=== PATIENT | female | born 1990 | race Caucasian/White ===

== ENCOUNTER 2016-10-15 20:47 | Emergency (ER) | payer BC ==
--- NOTE | 2016-10-15 21:03 | ER Document Report ---
ED Medical Screen (RME) - General Chief Complaint: Mouth Problem Stated Complaint: MOUTH PROBLEM Time seen by provider: 21:01 Mode of Arrival: Ambulatory Information source: Patient Notes: 26 yo female presents to ed for jaw pain right up to ear and had. 26 weeks TRAVEL OUTSIDE OF THE [place] IN LAST 30 DAYS: No - HPI Onset: Other - month Onset/Duration: Intermittent Quality of pain: Throbbing Severity: Moderate Pain Level: 4 Associated Symptoms: Other - jaw pain Exacerbated by: Denies Relieved by: Denies Similar symptoms previously: Yes Recently seen / treated by doctor: Yes - Related Data Smoking: Non-smoker Frequency of alcohol use: None Drug Abuse: None Allergies/Adverse Reactions: Penicillins Allergy (Verified 11/19/13 21:44) mycins Allergy (Uncoded 11/19/13 21:44) Past Medical History - Past Medical History Cardiac Medical History: Reports: Hx Hypertension - Immunizations Hx Diphtheria, Pertussis, Tetanus Vaccination: Yes
--- NOTE | 2016-10-15 22:13 | ER Document Report ---
ED General - General Chief Complaint: Mouth Problem Stated Complaint: MOUTH PROBLEM Time seen by provider: 22:08 Mode of Arrival: Ambulatory Notes: This is a 26-year-old female with a history of TMJ that presents today with right jaw pain that has been going on for a month. She states that her whole right lateral side of her face from the right orbit down to the chin will half a throbbing ache. She states that she saw her dentist on September 29 to get cavities filled and was put on Cefdinir. She completed the course of antibiotics on October 09. She states that the antibiotic helped with the pain. She is also been taking Tylenol extra strength which also helps with the pain. Denies any nausea vomiting fever or chills dysphagia or odynophagia. Denies shortness of breath. She is 26 weeks and follows with [facility]. TRAVEL OUTSIDE OF THE [place] IN LAST 30 DAYS: No - Related Data Allergies/Adverse Reactions: Penicillins Allergy (Verified 10/15/16 21:00) mycins Allergy (Uncoded 10/15/16 21:00) Past Medical History - General Information source: Patient - Social History Smoking Status: Never Smoker Frequency of alcohol use: None Drug Abuse: None Family History: Reviewed & Not Pertinent Patient has suicidal ideation: No Patient has homicidal ideation: No - Past Medical History Cardiac Medical History: Reports: Hx Hypertension - Immunizations Hx Diphtheria, Pertussis, Tetanus Vaccination: Yes Review of Systems - Review of Systems Constitutional: denies: Chills, Fever EENT: See HPI Cardiovascular: denies: Chest pain Respiratory: denies: Cough, Hurts to breathe Gastrointestinal: denies: Nausea, Vomiting Genitourinary: No symptoms reported Female Genitourinary: Musculoskeletal: See HPI Skin: denies: Change in color Hematologic/Lymphatic: No symptoms reported Neurological/Psychological: No symptoms reported Physical Exam - Vital signs Vitals: Temp Pulse Resp BP Pulse Ox 97.5 F 97 18 148/85 H 100 10/15/16 21:00 10/15/16 21:00 10/15/16 21:00 10/15/16 21:00 10/15/16 21:00 - General General appearance: Appears well In distress: None - HEENT Head: Normocephalic, Atraumatic, Tenderness - Tenderness to palpation of the TMJ right side Eyes: Normal Pharynx: No: Erythema, Exudate Neck: Anterior cervical chain - Nontender no masses, Posterior cervical chain - Nontender no masses - Respiratory Respiratory status: No respiratory distress Breath sounds: Normal. No: Rales, Rhonchi, Stridor, Wheezing - Cardiovascular Rhythm: Regular Heart sounds: Normal auscultation - Abdominal Bowel sounds: Normal Tenderness: Nontender - Extremities General upper extremity: Normal inspection, Nontender, Normal strength, Normal temperature General lower extremity: Normal inspection, Nontender, Normal strength, Normal temperature - Neurological Cognition: Normal. No: Confused - Psychological Associated symptoms: Normal affect, Normal mood - Skin Skin Temperature: Warm Skin Moisture: Dry Skin Color: Normal Course - Re-evaluation Re-evalutation: 10/15/16 22:40 Patient stated that she was specifically allergic to both penicillin and clindamycin. She stated that she broke out in hives. She refuses clindamycin. She stated that she wanted to try Cefdinir again. I advised her to follow-up with [facility]. She stated that she would. - Vital Signs Vital signs: Temp Pulse Resp BP Pulse Ox 98.1 F 89 16 130/81 H 100 10/15/16 22:45 10/15/16 22:45 10/15/16 22:45 10/15/16 22:45 10/15/16 22:45 Discharge - Discharge Clinical Impression: Jaw pain Condition: Good Disposition: HOME, SELF-CARE Additional Instructions: Follow-up with primary care physician and dentist as soon as possible. Return to the emergency department if symptoms worsen such as loss of sensation to the face, loss of motor function, fever, chills, etc. Prescriptions: Cefdinir 300 mg PO BID #14 capsule Referrals: LIA DIA MD [Primary Care Provider] - Follow up as needed
[2016-10-15 23:28] VITALS: BP 130/81
== END 2016-10-15 22:50 | disposition home or self-care (01) ==
LOC: ER 20:47
DX: O26.892 Other specified pregnancy related conditions, second trimester (principal); R68.84 Jaw pain; O16.2 Unspecified maternal hypertension, second trimester; Z3A.26 26 weeks gestation of pregnancy; Z98.890 Other specified postprocedural states; Z88.0 Allergy status to penicillin; Z88.1 Allergy status to other antibiotic agents
CPT/HCPCS: 99282

== ENCOUNTER 2016-12-07 16:43 | Outpatient (CLI) | payer BC ==
[2016-12-07 17:44] LABS: ABSOLUTE BASOPHILS # (AUTO) 0.1 10^3/uL (0.0-0.2); ABSOLUTE EOSINOPHILS # (AUTO) 0.1 10^3/uL (0.0-0.6); ABSOLUTE LYMPHOCYTES (AUTO) 1.8 10^3/uL (0.5-4.7); ABSOLUTE MONOCYTES (AUTO) 0.8 10^3/uL (0.1-1.4); ABSOLUTE NEUT (AUTO) 7.4 10^3/uL (1.7-8.2); EOSINOPHILS % (AUTO) 0.6 % (0-6); HEMATOCRIT 36.6 % (36.0-47.0); HEMOGLOBIN 12.4 g/dL (12.0-15.5); HGB HCT DIFFERENCE 0.6; MEAN CORPUSCULAR HEMOGLOBIN 30.2 pg (27.0-33.4); MEAN CORPUSCULAR HGB CONC 33.9 g/dL (32.0-36.0); MEAN CORPUSCULAR VOLUME 89 fl (80-97); MONOCYTES % (AUTO) 7.7 % (3-13); RED BLOOD COUNT 4.11 10^6/uL (3.72-5.28); RED CELL DISTRIBUTION WIDTH 13.5 % (11.5-14.0); SEGMENTED NEUTROPHILS % (AUTO) 72.7 % (42-78); WHITE BLOOD COUNT 10.2 10^3/uL (4.0-10.5)
[2016-12-07 17:59] LABS: APPEARANCE,URINE CLOUDY; BILIRUBIN,URINE NEGATIVE (NEGATIVE); GLUCOSE, URINE NEGATIVE (NEGATIVE); KETONES,URINE NEGATIVE (NEGATIVE); LEUKOCYTE ESTERASE,URINE MODERATE (NEGATIVE); NITRITE,URINE NEGATIVE (NEGATIVE); PROTEIN,URINE NEGATIVE (NEGATIVE); URINE SPECIFIC GRAVITY 1.006; UROBILINOGEN,URINE NEGATIVE mg/dL (<2.0)
--- NOTE | 2016-12-07 18:00 | L&D Flow Sheet ---
LD Flowsheet Datetime Report Generated by CPN: 12/07/2016 18:00 Datetime: 12/07/2016 17:56 NBP Sys/Patricia/Mean (mmHg): 120 (QS system process) : 69 (QS system process) : 89 (QS system process) Pulse: 86 (QS system process) LaborFlag: Labor (QS system process) Datetime: 12/07/2016 17:41 NBP Sys/Patricia/Mean (mmHg): 117 (QS system process) : 68 (QS system process) : 86 (QS system process) Pulse: 96 (QS system process) LaborFlag: Labor (QS system process) Datetime: 12/07/2016 17:40 Comments: unaware of contractions, denies abdominal tightening or cramping (Aye Camp, RNC) I/O Interventions: Popsicle; Clear Liquids Given (Aye Camp, RNC) Datetime: 12/07/2016 17:30 Monitor Mode: External; Palpation (Aye Camp, RNC) Frequency (min): denies (Aye Camp, RNC) Resting Tone (Palpate): Relaxed (Aye Camp, RNC) Monitor Mode: External US; Auscultation (Aye Camp, RNC) FHR Baseline Rate : 140 (Aye Camp, RNC) FHR Baseline Changes: No Baseline Change (Aye Camp, RNC) Variability: Moderate 6-25 bpm (Aye Camp, RNC) Accelerations: 15X15 (Aye Camp, RNC) Decelerations: None (Aye Camp, RNC) IV/Blood Work: Labs Drawn (Aye Camp, RNC) Datetime: 12/07/2016 17:28 NBP Sys/Patricia/Mean (mmHg): 126 (QS system process) : 72 (QS system process) : 87 (QS system process) Pulse: 92 (QS system process) Respirations: 20 (Aye Camp, RNC) LaborFlag: Labor (QS system process) Datetime: 12/07/2016 17:26 NBP Sys/Patricia/Mean (mmHg): 136 (QS system process) : 98 (Annotations: b/p taken during blood draw) (Aye Camp, RNC) : 113 (QS system process) Pulse: 115 (QS system process) Respirations: 20 (Aye Camp, RNC) LaborFlag: Labor (QS system process) Datetime: 12/07/2016 17:21 Patient Position/Activity: HOB Lowered; Right Lateral (Aye Camp, RNC) Patient Care Comments: monitors adjusted (Aye Camp, RNC) Datetime: 12/07/2016 17:20 Frequency (min): denies contractions (Aye Camp, RNC) Resting Tone (Palpate): Relaxed (Aye Camp, RNC) Pain Scale: 0 (Aye Camp, RNC) Pain Presence: None/Denies (Aye Camp, RNC) Pain Type: N/A (Aye Camp, RNC) Pain Assessment Comments: denies pain on arrival (Aye Camp, RNC) Membrane Status: Intact (Aye Camp, RNC) Vaginal Bleeding: None (Aye Camp, RNC) Level of Consciousness: Fully Conscious (Aye Camp, RNC) DTR's/Clonus: DTRs 2+; No Clonus (Aye Camp, RNC) Headache: Denies (Aye Camp, RNC) Breath Sounds, Left: Clear and Equal (Aye Camp, RNC) Breath Sounds, Right: Clear and Equal (Aye Camp, RNC) Nausea/Vomiting: Denies (Aye Camp, RNC) RUQ Epigastric Pain: Denies (Aye Camp, RNC) LaborFlag: Labor (QS system process) Datetime: 12/07/2016 17:18 Instructional Method: Demo; Verbal; Patient Instructed; Family/Support Person Instructed; Verbalized Understanding (Aye Martinez RNC) Plan of Care: Plan of Care Discussed; Gestational Hypertension/Preeclampsia/Eclampsia (ROXANA Dominguez) Unit Routine: [place] to Room; Call Fisher; Monitoring (ROXANA Dominguez) Teaching Comments: POC for preeclampsia evaluation reviewed (Aye Martinez RNC) Datetime: 12/07/2016 16:48 Stage of : Labor (ROXANA Dominguez)
[2016-12-07 18:05] LABS: ALANINE AMINOTRANSFERASE 22 U/L (9-52); ALBUMIN 3.9 g/dL (3.5-5.0); ALKALINE PHOSPHATASE 80 U/L (38-126); ANION GAP 14 (5-19); ASPARTATE AMINO TRANSFERASE 20 U/L (14-36); BILIRUBIN,TOTAL 0.4 mg/dL (0.2-1.3); BLOOD UREA NITROGEN 8 mg/dL (7-20); CALCIUM 9.6 mg/dL (8.4-10.2); CARBON DIOXIDE 18 mmol/L (22-30); CHLORIDE 106 mmol/L (98-107); CREATININE RESULT 0.57 mg/dL (0.52-1.25); GLUCOSE 68 mg/dL (75-110); LDH 539 U/L (313-618); POTASSIUM 4.6 mmol/L (3.6-5.0); SODIUM 137.7 mmol/L (137-145); TOTAL PROTEIN 6.8 g/dL (6.3-8.2); URIC ACID 4.4 mg/dL (2.5-6.2)
[2016-12-07 18:14] LABS: URINE BARBITURATES SCREEN NEGATIVE; URINE METHADONE SCREEN NEGATIVE; URINE OPIATES LOW NEGATIVE; URINE PHENCYCLIDINE SCREEN NEGATIVE
[2016-12-09 13:38] LABS: CREATININE URINE 33.3 mg/dL (Not Estab.)
== END 2016-12-07 18:25 | disposition home or self-care (01) ==
LOC: LC 16:43
PROVIDERS: ATTEND Obstetrics & Gynecology
PROC: 4A1HXCZ Monitoring of Products of Conception, Cardiac Rate, External Approach (ICD-10-PCS; principal; 2016-12-07)
DX: Z36 Encounter for antenatal screening of mother (principal); Z13.6 Encounter for screening for cardiovascular disorders; Z3A.32 32 weeks gestation of pregnancy
CPT/HCPCS: 36415; 59025; 80053; 80307; 81001; 82570; 83615; 84156; 84550; 85025

== ENCOUNTER 2016-12-28 13:54 | Outpatient (CLI) | payer BC, MEDICAID ==
--- NOTE | 2016-12-28 14:12 | Non Stress Test Report ---
Non Stress Test Datetime Report Generated by CPN: 12/28/2016 14:11 DEMOGRAPHIC EGA NST: 33.2 INDICATION Indication for Study: Chronic Hypertension VITAL SIGNS Temperature - NST: 97.9 Pulse - NST: 92 RESP - NST: 20 NBPSYS NST: 126 NBPDIA NST: 72 MONITORING Monitor Explained: Monitor Explained; Test Explained; Patient Verbalized Understanding Time on Monitor: 12/07/2016 17:18 Time off Monitor: 12/07/2016 18:17 NST Duration: 59 NST INTERVENTIONS NST Interventions: PO Hydration; Reposition Patient Physician Notified NST: Dr Bales BABY A: [id number] BABY A Movement : Present Contraction Frequency : 6-8 FHR Baseline : 135 Accelerations : 15X15 Decelerations : None Variability : Moderate 6-25bpm NST Review: Meets Criteria for Reactive NST NST Review and Verified By : Wolfgang Negro RN NST Results: Reactive NST REPORT Report Trigger: Send Report
[2016-12-28 14:42] LABS: ABSOLUTE EOSINOPHILS # (AUTO) 0.1 10^3/uL (0.0-0.6); ABSOLUTE LYMPHOCYTES (AUTO) 1.6 10^3/uL (0.5-4.7); ABSOLUTE MONOCYTES (AUTO) 0.8 10^3/uL (0.1-1.4); ABSOLUTE NEUT (AUTO) 6.9 10^3/uL (1.7-8.2); BASOPHILS % (AUTO) 0.5 % (0-2); EOSINOPHILS % (AUTO) 0.9 % (0-6); HEMATOCRIT 36.1 % (36.0-47.0); HEMOGLOBIN 12.4 g/dL (12.0-15.5); HGB HCT DIFFERENCE 1.1; LYMPHOCYTES % (AUTO) 17.3 % (13-45); MEAN CORPUSCULAR HEMOGLOBIN 30.3 pg (27.0-33.4); MEAN CORPUSCULAR HGB CONC 34.2 g/dL (32.0-36.0); MEAN CORPUSCULAR VOLUME 89 fl (80-97); MONOCYTES % (AUTO) 8.2 % (3-13); RED BLOOD COUNT 4.07 10^6/uL (3.72-5.28); RED CELL DISTRIBUTION WIDTH 13.8 % (11.5-14.0); SEGMENTED NEUTROPHILS % (AUTO) 73.1 % (42-78); WHITE BLOOD COUNT 9.4 10^3/uL (4.0-10.5)
[2016-12-28 14:43] LABS: APPEARANCE,URINE CLOUDY; BILIRUBIN,URINE NEGATIVE (NEGATIVE); GLUCOSE, URINE 50 mg/dL (NEGATIVE); KETONES,URINE NEGATIVE (NEGATIVE); LEUKOCYTE ESTERASE,URINE LARGE (NEGATIVE); NITRITE,URINE NEGATIVE (NEGATIVE); PROTEIN,URINE NEGATIVE (NEGATIVE); URINE SPECIFIC GRAVITY 1.003; UROBILINOGEN,URINE NEGATIVE mg/dL (<2.0)
[2016-12-28 14:58] LABS: URINE BARBITURATES SCREEN NEGATIVE; URINE METHADONE SCREEN NEGATIVE; URINE OPIATES LOW NEGATIVE; URINE PHENCYCLIDINE SCREEN NEGATIVE
[2016-12-28 15:01] LABS: ALANINE AMINOTRANSFERASE 16 U/L (9-52); ALBUMIN 3.5 g/dL (3.5-5.0); ALKALINE PHOSPHATASE 99 U/L (38-126); ANION GAP 12 (5-19); ASPARTATE AMINO TRANSFERASE 14 U/L (14-36); BILIRUBIN,DIRECT 0.2 mg/dL (0.0-0.4); BILIRUBIN,TOTAL 0.4 mg/dL (0.2-1.3); BLOOD UREA NITROGEN 10 mg/dL (7-20); CALCIUM 10.3 mg/dL (8.4-10.2); CARBON DIOXIDE 20 mmol/L (22-30); CHLORIDE 108 mmol/L (98-107); CREATININE RESULT 0.54 mg/dL (0.52-1.25); GLUCOSE 73 mg/dL (75-110); LDH 364 U/L (313-618); POTASSIUM 4.5 mmol/L (3.6-5.0); SODIUM 139.7 mmol/L (137-145); TOTAL PROTEIN 6.5 g/dL (6.3-8.2); URIC ACID 4.9 mg/dL (2.5-6.2)
[2016-12-28 16:16] LABS: CHLAM PCR NOT DETECTED (NOT DETECT)
== END 2016-12-28 15:23 | disposition home or self-care (01) ==
LOC: LC 13:54
PROVIDERS: ATTEND Specialist
PROC: 4A1HXCZ Monitoring of Products of Conception, Cardiac Rate, External Approach (ICD-10-PCS; principal; 2016-12-28)
DX: O10.913 Unspecified pre-existing hypertension complicating pregnancy, third trimester (principal); Z3A.33 33 weeks gestation of pregnancy
CPT/HCPCS: 36415; 59025; 80053; 80307; 81005; 83615; 84550; 85025; 87077; 87081; 87491; 87591

== ENCOUNTER 2016-12-31 14:22 | Outpatient (CLI) | payer BC, MEDICAID ==
--- NOTE | 2016-12-31 14:59 | Non Stress Test Report ---
Non Stress Test Datetime Report Generated by CPN: 12/31/2016 14:59 DEMOGRAPHIC EGA NST: 36.2 INDICATION Indication for Study: Other Indication for Study (NST) Other: sent from office for Pre-E workup MONITORING Monitor Explained: Monitor Explained; Test Explained; Patient Verbalized Understanding Time on Monitor: 12/28/2016 14:24 Time off Monitor: 12/28/2016 15:17 NST Duration: 53 NST INTERVENTIONS NST Interventions: PO Hydration; Reposition Patient Physician Notified NST: H. Andrew CNM BABY A Movement : Present Contraction Frequency : none FHR Baseline : 150 Accelerations : 15X15 Decelerations : None Variability : Moderate 6-25bpm NST Review: Meets Criteria for Reactive NST NST Review and Verified By : RENATO Miranda Results: Reactive NST REPORT Report Trigger: Send Report
[2016-12-31 15:07] LABS: ABSOLUTE BASOPHILS # (AUTO) 0.1 10^3/uL (0.0-0.2); ABSOLUTE EOSINOPHILS # (AUTO) 0.1 10^3/uL (0.0-0.6); ABSOLUTE LYMPHOCYTES (AUTO) 1.5 10^3/uL (0.5-4.7); ABSOLUTE MONOCYTES (AUTO) 0.9 10^3/uL (0.1-1.4); ABSOLUTE NEUT (AUTO) 7.3 10^3/uL (1.7-8.2); BASOPHILS % (AUTO) 0.6 % (0-2); EOSINOPHILS % (AUTO) 0.5 % (0-6); HEMATOCRIT 36.5 % (36.0-47.0); HEMOGLOBIN 12.4 g/dL (12.0-15.5); HGB HCT DIFFERENCE 0.7; LYMPHOCYTES % (AUTO) 15.3 % (13-45); MEAN CORPUSCULAR HGB CONC 33.9 g/dL (32.0-36.0); MEAN CORPUSCULAR VOLUME 89 fl (80-97); MONOCYTES % (AUTO) 8.9 % (3-13); RED BLOOD COUNT 4.12 10^6/uL (3.72-5.28); RED CELL DISTRIBUTION WIDTH 13.4 % (11.5-14.0); SEGMENTED NEUTROPHILS % (AUTO) 74.7 % (42-78); WHITE BLOOD COUNT 9.7 10^3/uL (4.0-10.5)
[2016-12-31 15:23] LABS: ALANINE AMINOTRANSFERASE 17 U/L (9-52); ALBUMIN 3.8 g/dL (3.5-5.0); ALKALINE PHOSPHATASE 108 U/L (38-126); ANION GAP 10 (5-19); ASPARTATE AMINO TRANSFERASE 11 U/L (14-36); BILIRUBIN,TOTAL 0.5 mg/dL (0.2-1.3); BLOOD UREA NITROGEN 9 mg/dL (7-20); CALCIUM 10.1 mg/dL (8.4-10.2); CARBON DIOXIDE 22 mmol/L (22-30); CHLORIDE 106 mmol/L (98-107); CREATININE RESULT 0.52 mg/dL (0.52-1.25); GLUCOSE 62 mg/dL (75-110); LDH 351 U/L (313-618); POTASSIUM 4.4 mmol/L (3.6-5.0); SODIUM 137.9 mmol/L (137-145); TOTAL PROTEIN 6.4 g/dL (6.3-8.2); URIC ACID 4.3 mg/dL (2.5-6.2)
[2016-12-31 15:39] LABS: APPEARANCE,URINE CLOUDY; BILIRUBIN,URINE NEGATIVE (NEGATIVE); GLUCOSE, URINE 50 mg/dL (NEGATIVE); KETONES,URINE NEGATIVE (NEGATIVE); LEUKOCYTE ESTERASE,URINE TRACE (NEGATIVE); NITRITE,URINE NEGATIVE (NEGATIVE); PROTEIN,URINE NEGATIVE (NEGATIVE); URINE SPECIFIC GRAVITY 1.006; UROBILINOGEN,URINE NEGATIVE mg/dL (<2.0)
[2016-12-31 15:53] LABS: URINE BARBITURATES SCREEN NEGATIVE; URINE METHADONE SCREEN NEGATIVE; URINE OPIATES LOW NEGATIVE; URINE PHENCYCLIDINE SCREEN NEGATIVE
--- NOTE | 2016-12-31 16:19 | Non Stress Test Report ---
Non Stress Test Datetime Report Generated by CPN: 12/31/2016 16:18 DEMOGRAPHIC EGA NST: 36.4 INDICATION Indication for Study: Other Indication for Study (NST) Other: pre-e workup MONITORING Monitor Explained: Monitor Explained; Test Explained; Patient Verbalized Understanding Time on Monitor: 12/31/2016 15:04 Time off Monitor: 12/31/2016 16:01 NST Duration: 57 NST INTERVENTIONS NST Interventions: PO Hydration; Reposition Patient Physician Notified NST: Dr Neilsen Physician Notified NST: Dr Neilsen BABY A Movement : Present Contraction Frequency : irreg FHR Baseline : 145 Accelerations : 15X15 Decelerations : None Variability : Moderate 6-25bpm NST Review: Meets Criteria for Reactive NST NST Review and Verified By : Aye Camp RNC NST Results: Reactive NST REPORT Report Trigger: Send Report
== END 2016-12-31 16:16 | disposition home or self-care (01) ==
LOC: LC 14:22
PROVIDERS: ATTEND Specialist
PROC: 4A1HXCZ Monitoring of Products of Conception, Cardiac Rate, External Approach (ICD-10-PCS; principal; 2016-12-31)
DX: O10.913 Unspecified pre-existing hypertension complicating pregnancy, third trimester (principal); Z3A.36 36 weeks gestation of pregnancy
CPT/HCPCS: 36415; 59025; 80053; 80307; 81001; 83615; 84550; 85025; 86592; 86850; 86900; 86901

== ENCOUNTER 2017-01-04 10:21 | Inpatient (IN) | payer BC, MEDICAID ==
[2017-01-04] MEDS ORDERED: DINOPROSTONE 10 MG VAGINAL INSERT.SR PV PRN (10:34)
[2017-01-04] MEDS ORDERED: RINGERS SOLUTION,LACTATED 300 ML IV ONE (10:34)
[2017-01-04] MEDS ORDERED: RINGERS SOLUTION,LACTATED 1,000 ML IV PRN (10:34)
[2017-01-04] MEDS ORDERED: NIFEDIPINE 30 MG TAB.ER.24 PO ONE (11:00)
[2017-01-04 11:16] LABS: APPEARANCE,URINE CLOUDY; BILIRUBIN,URINE NEGATIVE (NEGATIVE); GLUCOSE, URINE NEGATIVE (NEGATIVE); KETONES,URINE NEGATIVE (NEGATIVE); LEUKOCYTE ESTERASE,URINE SMALL (NEGATIVE); NITRITE,URINE NEGATIVE (NEGATIVE); PROTEIN,URINE 30 mg/dL (NEGATIVE); URINE SPECIFIC GRAVITY 1.023; UROBILINOGEN,URINE NEGATIVE mg/dL (<2.0)
[2017-01-04 11:17] LABS: ABSOLUTE EOSINOPHILS # (AUTO) 0.1 10^3/uL (0.0-0.6); ABSOLUTE LYMPHOCYTES (AUTO) 1.7 10^3/uL (0.5-4.7); ABSOLUTE MONOCYTES (AUTO) 0.5 10^3/uL (0.1-1.4); ABSOLUTE NEUT (AUTO) 6.7 10^3/uL (1.7-8.2); BASOPHILS % (AUTO) 0.5 % (0-2); EOSINOPHILS % (AUTO) 0.6 % (0-6); HEMATOCRIT 35.6 % (36.0-47.0); HEMOGLOBIN 12.1 g/dL (12.0-15.5); HGB HCT DIFFERENCE 0.7; LYMPHOCYTES % (AUTO) 18.6 % (13-45); MEAN CORPUSCULAR HEMOGLOBIN 30.3 pg (27.0-33.4); MEAN CORPUSCULAR VOLUME 89 fl (80-97); MONOCYTES % (AUTO) 5.1 % (3-13); SEGMENTED NEUTROPHILS % (AUTO) 75.2 % (42-78); WHITE BLOOD COUNT 8.9 10^3/uL (4.0-10.5)
[2017-01-04] MEDS ORDERED: DINOPROSTONE 10 MG VAGINAL INSERT.SR ONE (11:27)
[2017-01-04 11:32] LABS: ALANINE AMINOTRANSFERASE 17 U/L (9-52); ALBUMIN 3.6 g/dL (3.5-5.0); ALKALINE PHOSPHATASE 108 U/L (38-126); ANION GAP 11 (5-19); ASPARTATE AMINO TRANSFERASE 17 U/L (14-36); BILIRUBIN,TOTAL 0.6 mg/dL (0.2-1.3); BLOOD UREA NITROGEN 10 mg/dL (7-20); CALCIUM 10.2 mg/dL (8.4-10.2); CARBON DIOXIDE 22 mmol/L (22-30); CHLORIDE 106 mmol/L (98-107); CREATININE RESULT 0.54 mg/dL (0.52-1.25); GLUCOSE 99 mg/dL (75-110); LDH 356 U/L (313-618); SODIUM 139.3 mmol/L (137-145); TOTAL PROTEIN 6.3 g/dL (6.3-8.2); URIC ACID 4.8 mg/dL (2.5-6.2)
--- NOTE | 2017-01-04 11:46 | L&D Progress Notes ---
PROGRESS NOTES Datetime Report Generated by CPN: 01/04/2017 11:46 PROGRESS NOTE Comment: Cervidil placed, VE 1/50/-2/soft/posterior, Pitocin after 12 hours SIGNATURE SIGNATURE: ,[id number];,[id number] SIGNATURE: [id number] SIGNATURE: [id number] SIGNATURE: ,[id number] Assignment: Ellyn Cardona MD Signature: with User ID: [email or web address] : with User ID: [email or web address]
[2017-01-04 13:31] LABS: URINE BARBITURATES SCREEN NEGATIVE; URINE METHADONE SCREEN NEGATIVE; URINE OPIATES LOW NEGATIVE; URINE PHENCYCLIDINE SCREEN NEGATIVE
--- NOTE | 2017-01-04 20:02 | L&D Flow Sheet ---
LD Flowsheet Datetime Report Generated by CPN: 01/04/2017 20:00 Datetime: 01/04/2017 19:36 NBP Sys/Patricia/Mean (mmHg): 139 (QS system process) : 89 (QS system process) : 109 (QS system process) Pulse: 93 (QS system process) LaborFlag: Labor (QS system process) Datetime: 01/04/2017 19:30 Monitor Mode: External; Palpation (Haydee Field, RN) Frequency (min): x1 (Haydee Field, RN) Duration (sec): 80 (Haydee Field, RN) Resting Tone (Palpate): Relaxed (Haydee Field, RN) Monitor Mode: External US (Haydee Field, RN) FHR Baseline Rate : 145 (Haydee Field, RN) Variability: Moderate 6-25 bpm (Haydee Field, RN) Accelerations: 15X15 (Haydee Field, RN) Decelerations: None (Haydee Field, RN) Datetime: 01/04/2017 19:26 Level of Consciousness: Fully Conscious (Haydee Field, RN) DTR's/Clonus: DTRs 1+; No Clonus (Haydee Field, RN) Headache: Denies (Haydee Field, RN) Breath Sounds, Left: Clear and Equal (Haydee Field, RN) Breath Sounds, Right: Clear and Equal (Haydee Field, RN) Nausea/Vomiting: Denies (Haydee Field, RN) RUQ Epigastric Pain: Denies (Haydee Field, RN) Datetime: 01/04/2017 19:07 NBP Sys/Patricia/Mean (mmHg): 135 (QS system process) : 99 (QS system process) : 113 (QS system process) Pulse: 108 (QS system process) LaborFlag: Labor (QS system process) Datetime: 01/04/2017 19:05 Monitor Mode: External (Shikha Bellavance, RNC) Monitor Interventions for UA: [place] Adjusted (Shikha Bellavance, RNC) Frequency (min): 0 (Shikha Bellavance, RNC) Resting Tone (Palpate): Relaxed (Shikha Bellavance, RNC) Monitor Mode: External US (Shikha Bellavance, RNC) Monitor Interventions for FHR: Ultrasound Adjusted (Shikha Bellavance, RNC) FHR Baseline Rate : 150 (Shikha Bellavance, RNC) Variability: Moderate 6-25 bpm (Shikha Bellavance, RNC) Accelerations: None (Shikha Bellavance, RNC) Decelerations: None (Shikha Bellavance, RNC) IV/Blood Work: IV Infusing per Order (Shikha Bellavance, RNC) Patient Position/Activity: High Fowlers (Shikha Bellavance, RNC) Comfort Measures: Breathing/Relaxation (Shikha Bellavance, RNC) Datetime: 01/04/2017 18:58 I/O Interventions: Up to BR (Shikha Bellavance, RNC) Datetime: 01/04/2017 18:36 NBP Sys/Patricia/Mean (mmHg): 135 (QS system process) : 87 (QS system process) : 106 (QS system process) Pulse: 90 (QS system process) Respirations: 18 (Shikha Bellavance, RNC) Monitor Mode: External (Shikha Bellavance, RNC) Monitor Interventions for UA: [place] Adjusted (Shikha Bellavance, RNC) Frequency (min): 0 (Shikha Bellavance, RNC) Resting Tone (Palpate): Relaxed (Shikha Bellavance, RNC) Monitor Mode: External US (Shikha Bellavance, RNC) Monitor Interventions for FHR: Ultrasound Adjusted (Shikha Bellavance, RNC) FHR Baseline Rate : 150 (Shikha Bellavance, RNC) Variability: Moderate 6-25 bpm (Shikha Bellavance, RNC) Accelerations: None (Shikha Bellavance, RNC) Decelerations: None (Shikha Bellavance, RNC) IV/Blood Work: IV Infusing per Order (Shikha Bellavance, RNC) Patient Position/Activity: High Fowlers (Shikha Bellavance, RNC) Comfort Measures: Breathing/Relaxation (Shikha Bellavance, RNC) LaborFlag: Labor (QS system process) Datetime: 01/04/2017 18:06 NBP Sys/Patricia/Mean (mmHg): 131 (QS system process) : 80 (QS system process) : 101 (QS system process) Pulse: 100 (QS system process) Respirations: 18 (Shikha Bellavance, RNC) Monitor Mode: External (Shikha Bellavance, RNC) Monitor Interventions for UA: [place] Adjusted (Shikha Bellavance, RNC) Frequency (min): 0 (Shikha Bellavance, RNC) Resting Tone (Palpate): Relaxed (Shikha Bellavance, RNC) Monitor Mode: External US (Shikha Bellavance, RNC) Monitor Interventions for FHR: Ultrasound Adjusted (Shikha Bellavance, RNC) FHR Baseline Rate : 150 (Shikha Bellavance, RNC) Variability: Moderate 6-25 bpm (Shikha Bellavance, RNC) Accelerations: None (Shikha Bellavance, RNC) Decelerations: None (Shikha Bellavance, RNC) IV/Blood Work: IV Infusing per Order (Shikha Bellavance, RNC) Patient Position/Activity: High Fowlers (Shikha Bellavance, RNC) Comfort Measures: Breathing/Relaxation (Shikha Bellavance, RNC) LaborFlag: Labor (QS system process) Datetime: 01/04/2017 17:36 NBP Sys/Patricia/Mean (mmHg): 147 (QS system process) : 79 (QS system process) : 105 (QS system process) Pulse: 96 (QS system process) Respirations: 16 (Shikha Bellavance, RNC) Monitor Mode: External (Shikha Bellavance, RNC) Monitor Interventions for UA: [place] Adjusted (Shikha Bellavance, RNC) Frequency (min): 0 (Shikha Bellavance, RNC) Resting Tone (Palpate): Relaxed (Shikha Bellavance, RNC) Monitor Mode: External US (Shikha Bellavance, RNC) Monitor Interventions for FHR: Ultrasound Adjusted (Shikha Bellavance, RNC) FHR Baseline Rate : 150 (Shikha Bellavance, RNC) Variability: Moderate 6-25 bpm (Shikha Bellavance, RNC) Accelerations: None (Shikha Bellavance, RNC) Decelerations: None (Shikha Bellavance, RNC) IV/Blood Work: IV Infusing per Order (Shikha Bellavance, RNC) Patient Position/Activity: High Fowlers (Shikha Bellavance, RNC) Comfort Measures: Breathing/Relaxation (Shikha Bellavance, RNC) LaborFlag: Labor (QS system process) Datetime: 01/04/2017 17:08 NBP Sys/Patricia/Mean (mmHg): 140 (QS system process) : 71 (QS system process) : 97 (QS system process) Pulse: 96 (QS system process) Respirations: 16 (Shikha Bellavance, RNC) Monitor Mode: External (Shikha Bellavance, RNC) Monitor Interventions for UA: [place] Adjusted (Shikha Bellavance, RNC) Frequency (min): 0 (Shikha Bellavance, RNC) Resting Tone (Palpate): Relaxed (Shikha Bellavance, RNC) Monitor Mode: External US (Shikha Bellavance, RNC) Monitor Interventions for FHR: Ultrasound Adjusted (Shikha Bellavance, RNC) FHR Baseline Rate : 150 (Shikha Bellavance, RNC) Variability: Moderate 6-25 bpm (Shikha Bellavance, RNC) Accelerations: None (Shikha Bellavance, RNC) Decelerations: None (Shikha Bellavance, RNC) IV/Blood Work: IV Infusing per Order (Shikha Bellavance, RNC) Patient Position/Activity: High Fowlers (Shikha Bellavance, RNC) Comfort Measures: Breathing/Relaxation (Shikha Bellavance, RNC) LaborFlag: Labor (QS system process) Datetime: 01/04/2017 16:36 NBP Sys/Patricia/Mean (mmHg): 131 (QS system process) : 74 (QS system process) : 97 (QS system process) Pulse: 106 (QS system process) Respirations: 16 (Shikha Bellavance, RNC) Monitor Mode: External (Shikha Bellavance, RNC) Monitor Interventions for UA: [place] Adjusted (Shikha Bellavance, RNC) Frequency (min): 0 (Shikha Bellavance, RNC) Resting Tone (Palpate): Relaxed (Shikha Bellavance, RNC) Monitor Mode: External US (Shikha Bellavance, RNC) Monitor Interventions for FHR: Ultrasound Adjusted (Shikha Bellavance, RNC) FHR Baseline Rate : 150 (Shikha Bellavance, RNC) Variability: Moderate 6-25 bpm (Shikha Bellavance, RNC) Accelerations: None (Shikha Bellavance, RNC) Decelerations: None (Shikha Bellavance, RNC) IV/Blood Work: IV Infusing per Order (Shikha Bellavance, RNC) Patient Position/Activity: High Fowlers (Shikha Bellavance, RNC) Comfort Measures: Breathing/Relaxation (Shikha Bellavance, RNC) LaborFlag: Labor (QS system process) Datetime: 01/04/2017 16:06 NBP Sys/Patricia/Mean (mmHg): 132 (QS system process) : 86 (QS system process) : 104 (QS system process) Pulse: 114 (QS system process) Respirations: 18 (Shikha Bellavance, RNC) Monitor Mode: External (Shikha Bellavance, RNC) Monitor Interventions for UA: [place] Adjusted (Shikha Bellavance, RNC) Frequency (min): 0 (Shikha Bellavance, RNC) Resting Tone (Palpate): Relaxed (Shikha Bellavance, RNC) Monitor Mode: External US (Shikha Bellavance, RNC) Monitor Interventions for FHR: Ultrasound Adjusted (Shikha Bellavance, RNC) FHR Baseline Rate : 150 (Shikha Bellavance, RNC) Variability: Moderate 6-25 bpm (Shikha Bellavance, RNC) Accelerations: None (Shikha Bellavance, RNC) Decelerations: None (Shikha Bellavance, RNC) IV/Blood Work: IV Infusing per Order (Shikha Bellavance, RNC) Patient Position/Activity: High Fowlers (Shikha Bellavance, RNC) Comfort Measures: Breathing/Relaxation (Shikha Bellavance, RNC) LaborFlag: Labor (QS system process) Datetime: 01/04/2017 15:36 NBP Sys/Patricia/Mean (mmHg): 133 (QS system process) : 75 (QS system process) : 98 (QS system process) Pulse: 97 (QS system process) Respirations: 16 (Shikha Bellavance, RNC) Monitor Mode: External (Shikha Bellavance, RNC) Monitor Interventions for UA: [place] Adjusted (Shikha Bellavance, RNC) Frequency (min): 0 (Shikha Bellavance, RNC) Resting Tone (Palpate): Relaxed (Shikha Bellavance, RNC) Monitor Mode: External US (Shikha Bellavance, RNC) Monitor Interventions for FHR: Ultrasound Adjusted (Shikha Bellavance, RNC) FHR Baseline Rate : 150 (Shikha Bellavance, RNC) Variability: Moderate 6-25 bpm (Shikha Bellavance, RNC) Accelerations: None (Hsikha Bellavance, RNC) Decelerations: None (Shikha Bellavance, RNC) IV/Blood Work: IV Infusing per Order (Shikha Bellavance, RNC) Patient Position/Activity: High Fowlers (Shikha Bellavance, RNC) Comfort Measures: Breathing/Relaxation (Shikha Bellavance, RNC) LaborFlag: Labor (QS system process) Datetime: 01/04/2017 15:26 I/O Interventions: Up to BR (Shikha Bellavance, RNC) Datetime: 01/04/2017 15:07 NBP Sys/Patricia/Mean (mmHg): 133 (QS system process) : 81 (QS system process) : 101 (QS system process) Pulse: 104 (QS system process) Respirations: 18 (Shikha Bellavance, RNC) Monitor Mode: External (Shikha Bellavance, RNC) Monitor Interventions for UA: [place] Adjusted (Shikha Bellavance, RNC) Frequency (min): 0 (Shikha Bellavance, RNC) Resting Tone (Palpate): Relaxed (Shikha Bellavance, RNC) Monitor Mode: External US (Shikha Bellavance, RNC) Monitor Interventions for FHR: Ultrasound Adjusted (Shikha Bellavance, RNC) FHR Baseline Rate : 150 (Shikha Bellavance, RNC) Variability: Moderate 6-25 bpm (Shikha Bellavance, RNC) Accelerations: None (Shikha Bellavance, RNC) Decelerations: None (Shikha Bellavance, RNC) IV/Blood Work: IV Infusing per Order (Shikha Bellavance, RNC) Patient Position/Activity: High Fowlers (Shikha Bellavance, RNC) Comfort Measures: Breathing/Relaxation (Shikha Bellavance, RNC) LaborFlag: Labor (QS system process) Datetime: 01/04/2017 14:37 NBP Sys/Patricia/Mean (mmHg): 137 (QS system process) : 79 (QS system process) : 104 (QS system process) Pulse: 95 (QS system process) Respirations: 16 (Shikha Bellavance, RNC) Monitor Mode: External (Shikha Bellavance, RNC) Monitor Interventions for UA: [place] Adjusted (Shikha Bellavance, RNC) Frequency (min): 0 (Shikha Bellavance, RNC) Resting Tone (Palpate): Relaxed (Shikha Bellavance, RNC) Monitor Mode: External US (Shikha Bellavance, RNC) Monitor Interventions for FHR: Ultrasound Adjusted (Shikha Bellavance, RNC) FHR Baseline Rate : 150 (Shikha Bellavance, RNC) Variability: Moderate 6-25 bpm (Shikha Bellavance, RNC) Accelerations: None (Shikha Bellavance, RNC) Decelerations: None (Shikha Bellavance, RNC) IV/Blood Work: IV Infusing per Order (Shikha Bellavance, RNC) Patient Position/Activity: High Fowlers (Shikha Bellavance, RNC) Comfort Measures: Breathing/Relaxation (Shikha Bellavance, RNC) LaborFlag: Labor (QS system process) Datetime: 01/04/2017 14:07 NBP Sys/Patricia/Mean (mmHg): 130 (QS system process) : 81 (QS system process) : 99 (QS system process) Pulse: 93 (QS system process) Respirations: 18 (Shikha Bellavance, RNC) Temperature (F): 98.2 (Shikha Bellavance, RNC) Temperature (C): 36.8 (QS system process) Temperature Route: Oral (Shikha Bellavance, RNC) Monitor Mode: External (Shikha Bellavance, RNC) Monitor Interventions for UA: [place] Adjusted (Shikha Bellavance, RNC) Frequency (min): 0 (Shikha Bellavance, RNC) Resting Tone (Palpate): Relaxed (Shikha Bellavance, RNC) Monitor Mode: External US (Shikha Bellavance, RNC) Monitor Interventions for FHR: Ultrasound Adjusted (Shikha Bellavance, RNC) FHR Baseline Rate : 150 (Shikha Bellavance, RNC) Variability: Moderate 6-25 bpm (Shikha Bellavance, RNC) Accelerations: None (Shikha Bellavance, RNC) Decelerations: None (Shikha Bellavance, RNC) IV/Blood Work: IV Infusing per Order (Shikha Bellavance, RNC) Patient Position/Activity: High Fowlers (Shikha Bellavance, RNC) Comfort Measures: Breathing/Relaxation (Shikha Bellavance, RNC) LaborFlag: Labor (QS system process) Datetime: 01/04/2017 13:37 NBP Sys/Patricia/Mean (mmHg): 134 (QS system process) : 85 (QS system process) : 105 (QS system process) Pulse: 86 (QS system process) Respirations: 16 (Shikha Bellavance, RNC) Monitor Mode: External (Shikha Bellavance, RNC) Monitor Interventions for UA: [place] Adjusted (Shikha Bellavance, RNC) Frequency (min): 0 (Shikha Bellavance, RNC) Resting Tone (Palpate): Relaxed (Shikha Bellavance, RNC) Monitor Mode: External US (Shikha Bellavance, RNC) Monitor Interventions for FHR: Ultrasound Adjusted (Shikha Bellavance, RNC) FHR Baseline Rate : 150 (Shikha Bellavance, RNC) Variability: Moderate 6-25 bpm (Shikha Bellavance, RNC) Accelerations: None (Shikha Bellavance, RNC) Decelerations: None (Shikha Bellavance, RNC) IV/Blood Work: IV Infusing per Order (Shikha Bellavance, RNC) Patient Position/Activity: High Fowlers (Shikha Bellavance, RNC) Comfort Measures: Breathing/Relaxation (Shkiha Bellavance, RNC) LaborFlag: Labor (QS system process) Datetime: 01/04/2017 13:20 I/O Interventions: Up to BR (Shikha Bellavance, RNC) Datetime: 01/04/2017 13:06 NBP Sys/Patricia/Mean (mmHg): 135 (QS system process) : 83 (QS system process) : 105 (QS system process) Pulse: 100 (QS system process) Respirations: 16 (Shikha Bellavance, RNC) Monitor Mode: External (Shikha Bellavance, RNC) Monitor Interventions for UA: [place] Adjusted (Shikha Bellavance, RNC) Frequency (min): 0 (Shikha Bellavance, RNC) Resting Tone (Palpate): Relaxed (Shikha Bellavance, RNC) Monitor Mode: External US (Shikha Bellavance, RNC) Monitor Interventions for FHR: Ultrasound Adjusted (Shikha Bellavance, RNC) FHR Baseline Rate : 150 (Shikha Bellavance, RNC) Variability: Moderate 6-25 bpm (Shikha Bellavance, RNC) Accelerations: None (Shikha Bellavance, RNC) Decelerations: None (Shikha Bellavance, RNC) IV/Blood Work: IV Infusing per Order (Shikha Bellavance, RNC) Patient Position/Activity: High Fowlers (Shikha Bellavance, RNC) Comfort Measures: Breathing/Relaxation (Shikha Bellavance, RNC) LaborFlag: Labor (QS system process) Datetime: 01/04/2017 12:36 NBP Sys/Patricia/Mean (mmHg): 132 (QS system process) : 81 (QS system process) : 101 (QS system process) Pulse: 89 (QS system process) Respirations: 16 (Shikha Bellavance, RNC) Monitor Mode: External (Shikha Bellavance, RNC) Monitor Interventions for UA: [place] Adjusted (Shikha Bellavance, RNC) Frequency (min): 0 (Shikha Bellavance, RNC) Resting Tone (Palpate): Relaxed (Shikha Bellavance, RNC) Monitor Mode: External US (Shikha Bellavance, RNC) Monitor Interventions for FHR: Ultrasound Adjusted (Shikha Bellavance, RNC) FHR Baseline Rate : 150 (Shikha Bellavance, RNC) Variability: Moderate 6-25 bpm (Shikha Bellavance, RNC) Accelerations: None (Shikha Bellavance, RNC) Decelerations: None (Shikha Bellavance, RNC) IV/Blood Work: IV Infusing per Order (Shikha Bellavance, RNC) Patient Position/Activity: High Fowlers (Shikha Bellavance, RNC) Comfort Measures: Breathing/Relaxation (Shikha Bellavance, RNC) LaborFlag: Labor (QS system process) Datetime: 01/04/2017 12:07 NBP Sys/Patricia/Mean (mmHg): 133 (QS system process) : 88 (QS system process) : 106 (QS system process) Pulse: 87 (QS system process) Monitor Mode: External (Shikha Bellavance, RNC) Monitor Interventions for UA: [place] Adjusted (Shikha Bellavance, RNC) Frequency (min): 0 (Shikha Bellavance, RNC) Resting Tone (Palpate): Relaxed (Shikha Bellavance, RNC) Monitor Mode: External US (Shikha Bellavance, RNC) Monitor Interventions for FHR: Ultrasound Adjusted (Shikha Bellavance, RNC) FHR Baseline Rate : 150 (Shikha Bellavance, RNC) Variability: Moderate 6-25 bpm (Shikha Bellavance, RNC) Accelerations: None (Shikha Bellavance, RNC) Decelerations: None (Shikha Bellavance, RNC) IV/Blood Work: IV Infusing per Order (Shikha Bellavance, RNC) Patient Position/Activity: High Fowlers (Shikha Bellavance, RNC) Comfort Measures: Breathing/Relaxation (Shikha Bellavance, RNC) LaborFlag: Labor (QS system process) Datetime: 01/04/2017 11:36 NBP Sys/Patricia/Mean (mmHg): 136 (QS system process) : 94 (QS system process) : 110 (QS system process) Pulse: 93 (QS system process) Respirations: 16 (Shikha Bellavance, RNC) Monitor Mode: External (Shikha Bellavance, RNC) Monitor Interventions for UA: [place] Adjusted (Shikha Bellavance, RNC) Frequency (min): 0 (Shikha Bellavance, RNC) Resting Tone (Palpate): Relaxed (Shikha Bellavance, RNC) Monitor Mode: External US (Shikha Bellavance, RNC) Monitor Interventions for FHR: Ultrasound Adjusted (Shikha Bellavance, RNC) FHR Baseline Rate : 150 (Shikha Bellavance, RNC) Variability: Moderate 6-25 bpm (Shikha Bellavance, RNC) Accelerations: None (Shikha Bellavance, RNC) Decelerations: None (Shikha Bellavance, RNC) IV/Blood Work: IV Started; IV Bolus Started; Labs Drawn; IV Infusing per Order; New IV Bag Hung (Shikha Bellavance, RNC) Patient Position/Activity: High Fowlers (Shikha Bellavance, RNC) Comfort Measures: Breathing/Relaxation (Shikha Bellavance, RNC) LaborFlag: Labor (QS system process) Datetime: 01/04/2017 11:33 Pain Assessment Comments: denies (Shikha Bellavance, RNC) Dilatation (cm): 1.0 (Shikha Bellavance, RNC) Effacement (%): 50 (Shikha Bellavance, RNC) Station: -2 (Shikha Bellavance, RNC) Exam by: Albertina Shah RNC (Shikha Bellavance, RNC) Membrane Status: Intact (Shikha Bellavance, RNC) Cervical Ripening Agents: Cervidil (Shikha Bellavance, RNC) IV/Blood Work: IV Infusing per Order (Shikha Bellavance, RNC) LaborFlag: Labor (QS system process) Datetime: 01/04/2017 11:18 Level of Consciousness: Fully Conscious (Shikha Bellavance, RNC) DTR's/Clonus: DTRs 2+; No Clonus (Shikha Bellavance, RNC) Headache: Denies (Shikha Bellavance, RNC) Breath Sounds, Left: Clear and Equal (Shikha Bellavance, RNC) Breath Sounds, Right: Clear and Equal (Shikha Bellavance, RNC) Nausea/Vomiting: Denies (Shikha Bellavance, RNC) RUQ Epigastric Pain: Denies (Shikha Bellavance, RNC) Datetime: 01/04/2017 11:06 NBP Sys/Patricia/Mean (mmHg): 142 (QS system process) : 90 (QS system process) : 112 (QS system process) Pulse: 106 (QS system process) Respirations: 18 (Shikha Bellavance, RNC) Temperature (F): 98.2 (Shikha Bellavance, RNC) Temperature (C): 36.8 (QS system process) Temperature Route: Oral (Shikha Bellavance, RNC) Monitor Mode: External (Shikha Bellavance, RNC) Monitor Interventions for UA: [place] Adjusted (Shikha Bellavance, RNC) Frequency (min): 0 (Shikha Bellavance, RNC) Resting Tone (Palpate): Relaxed (Shikha Bellavance, RNC) Monitor Mode: External US (Shikha Bellavance, RNC) Monitor Interventions for FHR: Ultrasound Adjusted (Shikha Bellavance, RNC) FHR Baseline Rate : 150 (Shikha Bellavance, RNC) Variability: Moderate 6-25 bpm (Shikha Bellavance, RNC) Accelerations: None (Shikha Bellavance, RNC) Decelerations: None (Shikha Bellavance, RNC) Pain Scale: 0 (Shikha Bellavance, RNC) Level of Consciousness: Fully Conscious (Shikha Bellavance, RNC) DTR's/Clonus: DTRs 2+ (Shikha Bellavance, RNC) Headache: Denies (Shikha Bellavance, RNC) Breath Sounds, Left: Clear and Equal (Shikha Shah, RNC) Breath Sounds, Right: Clear and Equal (Shikha Shah, RNC) Nausea/Vomiting: Denies (Shikha Shah, RNC) RUQ Epigastric Pain: Denies (Shikha Shah, RNC) IV/Blood Work: IV Started; IV Bolus Started; Labs Drawn; IV Infusing per Order; New IV Bag Hung (Shikha Shah, RNC) Patient Position/Activity: High Fowlers (Shikha Shah, RNC) Comfort Measures: Breathing/Relaxation (Shikha Shah, RNC) LaborFlag: Labor (QS system process)
[2017-01-04] MEDS ORDERED: MISOPROSTOL 0.1 MG TABLET ONE (23:44)
[2017-01-04] MEDS ORDERED: MISOPROSTOL 0.1 MG TABLET PV ONE (23:59)
[2017-01-05] MEDS ORDERED: MISOPROSTOL 0.1 MG TABLET ONE (03:49)
[2017-01-05] MEDS ORDERED: MISOPROSTOL 0.1 MG TABLET PV ONE (04:00)
--- NOTE | 2017-01-05 08:01 | L&D Flow Sheet ---
LD Flowsheet Datetime Report Generated by CPN: 01/05/2017 08:00 Datetime: 01/05/2017 07:14 Communication: Report Given to @ Charles RN; care relinquished at this time. (Haydee Johnston, RN) Datetime: 01/05/2017 07:00 Monitor Mode: External; Palpation (Haydee Johnston, RN) Monitor Interventions for UA: [place] Adjusted (Haydee Johnston RN) Quality: Mild/Moderate (Haydee Field, RN) Resting Tone (Palpate): Relaxed (Haydee Field, RN) Contraction Comments: unable to determine contractions (Haydee Field, RN) Monitor Mode: External US (Haydee Field, RN) FHR Baseline Rate : 135 (Haydee Field, RN) Variability: Moderate 6-25 bpm (Haydee Field, RN) Accelerations: 15X15 (Haydee Field, RN) Decelerations: None (Haydee Field, RN) Datetime: 01/05/2017 06:30 Monitor Mode: External; Palpation (Haydee Field, RN) Frequency (min): 1.5-2.5 (Haydee Field, RN) Quality: Mild/Moderate (Haydee Field, RN) Duration (sec): 60-90 (Haydee Field, RN) Resting Tone (Palpate): Relaxed (Haydee Field, RN) Monitor Mode: External US (Haydee Field, RN) FHR Baseline Rate : 135 (Haydee Field, RN) Variability: Moderate 6-25 bpm (Haydee Field, RN) Accelerations: 15X15 (Haydee Field, RN) Decelerations: None (Haydee Field, RN) Datetime: 01/05/2017 06:00 Monitor Mode: External; Palpation (Haydee Field, RN) Frequency (min): 2-4 (Haydee Field, RN) Quality: Mild/Moderate (Haydee Field, RN) Duration (sec): 60-120 (Haydee Field, RN) Resting Tone (Palpate): Relaxed (Haydee Field, RN) Monitor Mode: External US (Haydee Field, RN) FHR Baseline Rate : 135 (Haydee Field, RN) Variability: Moderate 6-25 bpm (Haydee Field, RN) Accelerations: 10X10 (Haydee Field, RN) Decelerations: None (Haydee Field, RN) Datetime: 01/05/2017 05:29 Monitor Mode: External; Palpation (Haydee Field, RN) Frequency (min): 2-3 (Haydee Field, RN) Quality: Mild/Moderate (Haydee Field, RN) Duration (sec): 90-110 (Haydee Field, RN) Resting Tone (Palpate): Relaxed (Haydee Field, RN) Monitor Mode: External US (Haydee Field, RN) FHR Baseline Rate : 130 (Haydee Field, RN) Variability: Moderate 6-25 bpm (Haydee Field, RN) Accelerations: 15X15 (Haydee Field, RN) Decelerations: None (Haydee Field, RN) Datetime: 01/05/2017 05:28 Patient Position/Activity: Right Tilt; Semi-Fowlers (Haydee Johnston RN) Datetime: 01/05/2017 05:19 I/O Interventions: Up to BR (Haydee Johnston, RN) Datetime: 01/05/2017 05:06 NBP Sys/Patricia/Mean (mmHg): 138 (QS system process) : 80 (QS system process) : 104 (QS system process) Pulse: 80 (QS system process) Monitor Mode: External; Palpation (Haydee Johnston RN) Frequency (min): 1.5-3 (Haydee Johnston RN) Quality: Mild/Moderate (Haydee Field, RN) Duration (sec): 60-90 (Haydee Field, RN) Resting Tone (Palpate): Relaxed (Haydee Field, RN) Monitor Mode: External US (Haydee Field, RN) FHR Baseline Rate : 135 (Haydee Field, RN) Variability: Moderate 6-25 bpm (Hayede Field, RN) Accelerations: 15X15 (Haydee Field, RN) Decelerations: None (Haydee Field, RN) LaborFlag: Labor (QS system process) Datetime: 01/05/2017 04:37 NBP Sys/Patricia/Mean (mmHg): 138 (QS system process) : 86 (QS system process) : 107 (QS system process) Pulse: 83 (QS system process) Monitor Mode: External; Palpation (Haydee Johnston, RN) Frequency (min): 2-4 (Haydee Johnston, RN) Quality: Mild/Moderate (Haydee Field, RN) Duration (sec): 60-120 (Haydee Field, RN) Resting Tone (Palpate): Relaxed (Haydee Field, RN) Monitor Mode: External US (Haydee Field, RN) FHR Baseline Rate : 135 (Haydee Field, RN) Variability: Moderate 6-25 bpm (Haydee Field, RN) Accelerations: 15X15 (Haydee Field, RN) Decelerations: None (Haydee Field, RN) LaborFlag: Labor (QS system process) Datetime: 01/05/2017 04:10 Patient Position/Activity: Right Tilt; Semi-Fowlers (Haydee Johnston, RN) Datetime: 01/05/2017 04:07 NBP Sys/Patricia/Mean (mmHg): 135 (QS system process) : 84 (QS system process) : 104 (QS system process) Pulse: 84 (QS system process) Monitor Mode: External; Palpation (Haydee Johnston, RN) Frequency (min): 4.5 (Haydee Johnston, RN) Quality: Mild/Moderate (Haydee Johnston, RN) Duration (sec): 60-110 (Haydee Johnston, RN) Resting Tone (Palpate): Relaxed (Haydee Johnston, RN) Monitor Mode: External US (Haydee Johnston, RN) FHR Baseline Rate : 135 (Haydee Field, RN) Variability: Moderate 6-25 bpm (Haydee Field, RN) Accelerations: 15X15 (Haydee Field, RN) Decelerations: Late; Variable (Haydee Johnston, RN) LaborFlag: Labor (QS system process) Datetime: 01/05/2017 03:50 Cervical Ripening Agents: Cytotec @ 25 mcg PV (Haydee Johnston RN) Datetime: 01/05/2017 03:43 Communication: RN Reviewed Strip; Provider Orders Received; Call/Page Placed to Provider (Haydee Johnston RN) Communication Comments: Informed Dr. Cardona of patient's vag exam; orders received for Cytotec 25 mcg PV (Haydee Johnston RN) Datetime: 01/05/2017 03:40 Dilatation (cm): 1.0 (Haydee Johnston RN) Effacement (%): 70 (Haydee Johnston RN) Station: -2 (Haydee Johnston RN) Exam by: RENATO Mathias (Haydee Field, RN) Datetime: 01/05/2017 03:37 NBP Sys/Patricia/Mean (mmHg): 142 (QS system process) : 98 (QS system process) : 116 (QS system process) Pulse: 95 (QS system process) Monitor Mode: External; Palpation (Haydee Johnston, RN) Frequency (min): 2-5.5 (Haydee Johnston, RN) Quality: Mild/Moderate (Haydee Johnston, RN) Duration (sec): 80-100 (Haydee Johnston, RN) Resting Tone (Palpate): Relaxed (Haydee Johnston, RN) Monitor Mode: External US (Haydee Johnston, RN) FHR Baseline Rate : 135 (Haydee Johnston, RN) Variability: Moderate 6-25 bpm (Haydee , RN) Accelerations: 10X10 (Haydee Johnston, RN) Decelerations: Variable (Haydee Johnston, RN) LaborFlag: Labor (QS system process) Datetime: 01/05/2017 03:08 NBP Sys/Patricia/Mean (mmHg): 143 (QS system process) : 82 (QS system process) : 107 (QS system process) Pulse: 87 (QS system process) Monitor Mode: External; Palpation (Haydee Johnston, RN) Frequency (min): 2-8 (Haydee Johnston, RN) Quality: Mild/Moderate (Haydee Johnston, RN) Duration (sec): 70-110 (Haydee Johnston, RN) Resting Tone (Palpate): Relaxed (Haydee Johnston, RN) Monitor Mode: External US (Haydee Johnston, RN) FHR Baseline Rate : 135 (Haydee Johnston, RN) Variability: Moderate 6-25 bpm (Haydee , RN) Accelerations: 15X15 (Haydee , RN) Decelerations: None (Haydee Johnston, RN) LaborFlag: Labor (QS system process) Datetime: 01/05/2017 02:36 NBP Sys/Patricia/Mean (mmHg): 136 (QS system process) : 88 (QS system process) : 108 (QS system process) Pulse: 89 (QS system process) Monitor Mode: External; Palpation (Haydee Johnston, RN) Frequency (min): 4.5 (Haydee Johnston, RN) Quality: Mild/Moderate (Haydee Johnston, RN) Duration (sec): 110-120 (Haydee Johnston, RN) Resting Tone (Palpate): Relaxed (Haydee Johnston, RN) Monitor Mode: External US (Haydee Johnston, RN) FHR Baseline Rate : 135 (Haydee , RN) Variability: Moderate 6-25 bpm (Haydee Field, RN) Accelerations: None (Haydee , RN) Decelerations: None (Haydee , RN) LaborFlag: Labor (QS system process) Datetime: 01/05/2017 02:08 I/O Interventions: Up to BR (Haydee Johnston RN) Datetime: 01/05/2017 02:06 NBP Sys/Patricia/Mean (mmHg): 135 (QS system process) : 99 (QS system process) : 113 (QS system process) Pulse: 85 (QS system process) Monitor Mode: External; Palpation (Haydee Johnston RN) Frequency (min): 2.5-7.5 (Haydee Johnston RN) Quality: Mild/Moderate (Haydee Johnston RN) Duration (sec): 80-90 (Haydee Johnston RN) Resting Tone (Palpate): Relaxed (Haydee Johnston RN) Monitor Mode: External US (Haydee Johnston RN) FHR Baseline Rate : 135 (Haydee Johnston RN) Variability: Moderate 6-25 bpm (Haydee Johnston, RN) Accelerations: 15X15 (Haydee Johnston, RN) Decelerations: None (Haydee Johnston RN) LaborFlag: Labor (QS system process) Datetime: 01/05/2017 01:36 NBP Sys/Patricia/Mean (mmHg): 132 (QS system process) : 77 (QS system process) : 99 (QS system process) Pulse: 85 (QS system process) Monitor Mode: External; Palpation (Haydee Field, RN) Resting Tone (Palpate): Relaxed (Haydee Field, RN) Contraction Comments: Unable to determine contraction frequency (Haydee Field, RN) Monitor Mode: External US (Haydee Field, RN) FHR Baseline Rate : 135 (Haydee Field, RN) Variability: Moderate 6-25 bpm (Haydee Field, RN) Accelerations: 15X15 (Haydee Field, RN) Decelerations: None (Haydee Field, RN) LaborFlag: Labor (QS system process) Datetime: 01/05/2017 01:16 IV/Blood Work: New IV Bag Hung (Haydee Field, RN) Datetime: 01/05/2017 01:07 NBP Sys/Patricia/Mean (mmHg): 139 (QS system process) : 87 (QS system process) : 108 (QS system process) Pulse: 90 (QS system process) Monitor Mode: External; Palpation (Haydee Johnston, RN) Resting Tone (Palpate): Relaxed (Haydee Johnston RN) Contraction Comments: Unable to determine contraction frequency (Haydee Johnston RN) Monitor Mode: External US (Haydee Johnston, RN) FHR Baseline Rate : 135 (Haydee Johnston, RN) Variability: Moderate 6-25 bpm (Haydee Johnston, RN) Accelerations: 15X15 (Haydee Johnston, RN) Decelerations: None (Haydee Johnston, RN) LaborFlag: Labor (QS system process) Datetime: 01/05/2017 00:36 NBP Sys/Patricia/Mean (mmHg): 135 (QS system process) : 83 (QS system process) : 104 (QS system process) Pulse: 87 (QS system process) Monitor Mode: External; Palpation (Haydee Johnston, RN) Frequency (min): 4.5-8 (Haydee Johnston, RN) Quality: Mild/Moderate (Haydee Johnston, RN) Duration (sec): 80-120 (Haydee Field, RN) Resting Tone (Palpate): Relaxed (Haydee , RN) Monitor Mode: External US (Haydee Johnston, RN) FHR Baseline Rate : 140 (Haydee , RN) Variability: Moderate 6-25 bpm (Haydee Field, RN) Accelerations: 15X15 (Haydee Field, RN) Decelerations: None (Haydee Field, RN) LaborFlag: Labor (QS system process) Datetime: 01/05/2017 00:06 NBP Sys/Patricia/Mean (mmHg): 132 (QS system process) : 78 (QS system process) : 100 (QS system process) Pulse: 93 (QS system process) Monitor Mode: External; Palpation (Haydee Johnston, RN) Frequency (min): 3.5-6.5 (Haydee Johnston, RN) Quality: Mild/Moderate (Haydee Johnston, RN) Duration (sec): 70-90 (Haydee Johnston, RN) Resting Tone (Palpate): Relaxed (Haydee Johnston, RN) Monitor Mode: External US (Haydee Johnston, RN) FHR Baseline Rate : 145 (Haydee Field, RN) Variability: Moderate 6-25 bpm (Haydee Field, RN) Accelerations: 15X15 (Haydee Field, RN) Decelerations: None (Haydee Field, RN) LaborFlag: Labor (QS system process) Datetime: 01/04/2017 23:48 Cervical Ripening Agents: Cytotec @ 25 mcg PV (Haydee Johnston RN) Datetime: 01/04/2017 23:37 Communication: RN Reviewed Strip; Provider Orders Received; Call/Page Placed to Provider (Haydee Johnston RN) Communication Comments: Informed Dr. Cardona of patient's vag exam and contraction frequency; orders received for Cytotec 0.025 mg PV, recheck in 4 hours and call her back. (Haydee Johnston RN) Datetime: 01/04/2017 23:36 NBP Sys/Patricia/Mean (mmHg): 139 (QS system process) : 79 (QS system process) : 103 (QS system process) Pulse: 101 (QS system process) Monitor Mode: External; Palpation (Haydee Field, RN) Frequency (min): 3.5-6.5 (Haydee Johnston, RN) Quality: Mild/Moderate (Haydee Johnston, RN) Duration (sec): 50-100 (Haydee Johnston, RN) Resting Tone (Palpate): Relaxed (Haydee Johnston, RN) Monitor Mode: External US (Haydee Johnston, RN) FHR Baseline Rate : 145 (Haydee Johnston, RN) Variability: Moderate 6-25 bpm (Haydee Johnston, RN) Accelerations: 15X15 (Haydee Johnston, RN) Decelerations: None (Haydee Johnston, RN) LaborFlag: Labor (QS system process) Datetime: 01/04/2017 23:31 Dilatation (cm): 1.0 (Haydee Johnston, RN) Effacement (%): 50 (Haydee Johnston, RN) Station: -2 (Haydee Johnston, RN) Exam by: RENATO Mathias (Haydee Johnston, RN) Datetime: 01/04/2017 23:30 Medication Comments: Cervidil pulled (Haydee Johnston, RN) Datetime: 01/04/2017 23:26 I/O Interventions: Up to BR (Haydee Johnston, RN) Datetime: 01/04/2017 23:07 NBP Sys/Patricia/Mean (mmHg): 134 (QS system process) : 79 (QS system process) : 100 (QS system process) Pulse: 93 (QS system process) Monitor Mode: External; Palpation (Haydee Johnston RN) Frequency (min): 2.5-13 (Haydee Johnston RN) Quality: Mild/Moderate (Haydee Johnston RN) Duration (sec): 60-140 (Haydee Johnston RN) Resting Tone (Palpate): Relaxed (Haydee Johnston RN) Monitor Mode: External US (Haydee Johnston RN) FHR Baseline Rate : 145 (Haydee Johnston RN) Variability: Moderate 6-25 bpm (Haydee Johnston RN) Accelerations: 15X15 (Haydee Johnston RN) Decelerations: None (Haydee Johnston RN) LaborFlag: Labor (QS system process) Datetime: 01/04/2017 22:36 NBP Sys/Patricia/Mean (mmHg): 142 (QS system process) : 84 (QS system process) : 107 (QS system process) Pulse: 97 (QS system process) Monitor Mode: External; Palpation (Haydee Johnston, RN) Frequency (min): 3-7 (Haydee Johnston, RN) Quality: Mild/Moderate (Haydee Johnston, RN) Duration (sec): 50-90 (Haydee Johnston, RN) Resting Tone (Palpate): Relaxed (Haydee Johnston, RN) Monitor Mode: External US (Haydee Johnston, RN) FHR Baseline Rate : 145 (Haydee Field, RN) Variability: Moderate 6-25 bpm (Haydee Field, RN) Accelerations: 15X15 (Haydee Field, RN) Decelerations: None (Haydee Field, RN) LaborFlag: Labor (QS system process) Datetime: 01/04/2017 22:07 NBP Sys/Patricia/Mean (mmHg): 148 (QS system process) : 98 (QS system process) : 118 (QS system process) Pulse: 90 (QS system process) Monitor Mode: External; Palpation (Haydee Field, RN) Frequency (min): 2-4.5 (Haydee Field, RN) Quality: Mild (Haydee Field, RN) Duration (sec): 60-80 (Haydee Field, RN) Resting Tone (Palpate): Relaxed (Haydee Field, RN) Monitor Mode: External US (Haydee Field, RN) FHR Baseline Rate : 150 (Haydee Field, RN) Variability: Moderate 6-25 bpm (Haydee Field, RN) Accelerations: 15X15 (Haydee Field, RN) Decelerations: None (Haydee Field, RN) LaborFlag: Labor (QS system process) Datetime: 01/04/2017 21:36 NBP Sys/Patricia/Mean (mmHg): 141 (QS system process) : 87 (QS system process) : 110 (QS system process) Pulse: 105 (QS system process) Monitor Mode: External; Palpation (Haydee Field, RN) Frequency (min): 0 (Haydee Field, RN) Resting Tone (Palpate): Relaxed (Haydee Field, RN) Monitor Mode: External US (Haydee Field, RN) FHR Baseline Rate : 150 (Haydee Field, RN) Variability: Moderate 6-25 bpm (Haydee Field, RN) Accelerations: 15X15 (Haydee Field, RN) Decelerations: None (Haydee Field, RN) LaborFlag: Labor (QS system process) Datetime: 01/04/2017 21:23 Patient Position/Activity: High Fowlers (Haydee Johnston, RN) Patient Care Comments: Patient sitting up eating dinner (Haydee Johnston, RN) Datetime: 01/04/2017 21:08 I/O Interventions: Up to BR (Haydee Johnston, RN) Datetime: 01/04/2017 21:07 NBP Sys/Patricia/Mean (mmHg): 140 (QS system process) : 98 (QS system process) : 115 (QS system process) Pulse: 95 (QS system process) Monitor Mode: External; Palpation (Haydee Field, RN) Frequency (min): 5 (Haydee Field, RN) Duration (sec): 80-120 (Haydee Field, RN) Resting Tone (Palpate): Relaxed (Haydee Field, RN) Monitor Mode: External US (Haydee Field, RN) FHR Baseline Rate : 140 (Haydee Field, RN) Variability: Moderate 6-25 bpm (Haydee Field, RN) Accelerations: 15X15 (Haydee Field, RN) Decelerations: None (Haydee Field, RN) LaborFlag: Labor (QS system process) Datetime: 01/04/2017 20:36 NBP Sys/Patricia/Mean (mmHg): 136 (QS system process) : 93 (QS system process) : 109 (QS system process) Pulse: 84 (QS system process) Monitor Mode: External; Palpation (Haydee Field, RN) Frequency (min): 0 (Haydee Field, RN) Resting Tone (Palpate): Relaxed (Haydee Field, RN) Monitor Mode: External US (Haydee Field, RN) FHR Baseline Rate : 145 (Haydee Field, RN) Variability: Moderate 6-25 bpm (Haydee Field, RN) Accelerations: 15X15 (Haydee Field, RN) Decelerations: None (Haydee Field, RN) LaborFlag: Labor (QS system process) Datetime: 01/04/2017 20:06 NBP Sys/Patricia/Mean (mmHg): 138 (QS system process) : 93 (QS system process) : 112 (QS system process) Pulse: 90 (QS system process) Monitor Mode: External; Palpation (Haydee Johnston RN) Frequency (min): 0 (Haydee Johnston RN) Resting Tone (Palpate): Relaxed (Haydee Johnston, RN) Monitor Mode: External US (Haydee Johnston RN) FHR Baseline Rate : 145 (Haydee Johnston RN) Variability: Moderate 6-25 bpm (Haydee Johnston, RN) Accelerations: 15X15 (Haydee Johnston, RN) Decelerations: None (Haydee Johnston RN) LaborFlag: Labor (QS system process)
[2017-01-05] MEDS ORDERED: OXYTOCIN/NORMAL SALINE 20 UNIT/1,000 ML RTUINJ ONE ×2 (10:12→18:01)
--- NOTE | 2017-01-05 10:22 | L&D Progress Notes ---
PROGRESS NOTES Datetime Report Generated by CPN: 01/05/2017 10:21 PROGRESS NOTE Plan: Continue Present Management; Induction Informed Consent Obtained: Vaginal Delivery; Section Delivery; Risks, Benefits and Alternatives Discussed Vital Signs : Reviewed Vital Signs Comments: elevated bps pt asymptomatic has not had procardia in 24 hours take procardia now Comment: 26 yo admitted for IOL preexisting CHTN on procardia 60 mg po qd EDC 01/23/17 EGA 37.1 PMHX- Obesity GDM Chronic Hypertension GBS positive Multiple drug allergies cervidil and cytotec since yesterday, start pitocin per protocol GBS prophylaxis pain management prn poc reviewed with pt and mother MEMBRANES Membranes: Intact FETUS A FHR - Baseline: 120 Monitoring: External US Variability: Moderate 6-25bpm Accelerations: 15X15 Decelerations: None FHR Category: Category I : 37.3 FETUS C SIGNATURE: [id number] Assignment: Isabelle Baldwin MD Signature: with User ID: Matilda : with User ID: Matilda
[2017-01-05] MEDS ORDERED: CEFAZOLIN 1 GM/D5W RTU 1 GM/50 ML RTUPB IV ONE ×2 (10:26→17:14)
[2017-01-05] MEDS ORDERED: CITRIC ACID/SODIUM CITRATE ORAL SOLN 15 ML UDCUP ONE (17:56)
[2017-01-05] MEDS ORDERED: PHENYLEPHRINE HCL INJ/PF 10 MG/1 ML SDV ONE (18:01)
[2017-01-05] MEDS ORDERED: ONDANSETRON HCL INJ/PF 4 MG/2 ML SDV ONE (18:01)
[2017-01-05] MEDS ORDERED: OXYTOCIN 10 UNIT/ML VIAL ONE (18:01)
[2017-01-05] MEDS ORDERED: FENTANYL CITRATE INJ/PF 100 MCG/2 ML AMPUL ONE (18:02)
[2017-01-05] MEDS ORDERED: MIDAZOLAM 2 MG/2 ML INJ ONE (18:02)
[2017-01-05] MEDS ORDERED: PROMETHAZINE HCL INJ 25 MG/1 ML VIAL IV PRN (19:35)
[2017-01-05] MEDS ORDERED: MEASLES,MUMPS&RUBELLA VACC/PF 0.5 ML VIAL SUBCUT PRN (19:35)
[2017-01-05] MEDS ORDERED: OXYCODONE-ACETAMINOPHEN 5-325 MG TABLET PO PRN ×2 (19:35)
[2017-01-05] MEDS ORDERED: MORPHINE SULFATE 10 MG/ML INJ IV PRN (19:35)
[2017-01-05] MEDS ORDERED: SIMETHICONE 80 MG TAB.CHEW PO PRN (19:35)
[2017-01-05] MEDS ORDERED: ACETAMINOPHEN 325 MG TABLET PO PRN (19:35)
[2017-01-05] MEDS ORDERED: DIPH/PERTUSS(ACELL)/TETANUS VAC/PF 0.5 ML SYR (>=10YO) IM PRN (19:35)
[2017-01-05] MEDS ORDERED: OXYTOCIN/NORMAL SALINE 1,000 ML IV PRN (19:35)
--- NOTE | 2017-01-05 19:38 | OPERATIVE REPORT E ---
Operative Report NAME: SUPA WORRELL : 1990 AGE: 27Y DATE OF SURGERY: 01/05/2017 ROOM: LR200 PREOPERATIVE DIAGNOSES: 1. Intrauterine at 37 weeks and 2 days. 2. Chronic hypertension. 3. Gestational diabetic. 4. Nonreassuring heart tones. 5. Failure to progress. POSTOPERATIVE DIAGNOSES: 1. Intrauterine at 37 weeks and 2 days. 2. Chronic hypertension. 3. Gestational diabetic. 4. Nonreassuring heart tones. 5. Failure to progress. OPERATION: A low transverse hysterotomy section. SURGEON: LUIS RIOS M.D. ANESTHESIA: Dr. Davila with a spinal. ESTIMATED BLOOD LOSS: Six-hundred mL. PATHOLOGY: None. FINDINGS: A male infant in cephalic presentation with Apgars 8 and 9. Umbilical cord measuring 12 inches exactly. TISSUE REMOVED OR ALTERED: @ PROCEDURE IN DETAIL: Patient was taken to the operating room, prepared and draped in a normal sterile fashion in the supine position with a leftward tilt. A transverse skin incision was made with a scalpel and carried through to the underlying layer of fascia with the same scalpel. The fascia was excised in midline and extended laterally bluntly. The rectus muscle was then divided from the fascia sharply with Mayobeatrice. The rectus muscle was divided. The peritoneal cavity was entered bluntly. There was good visualization of the bladder and the uterus. A bladder blade was inserted. The hysterotomy was nicked in the center with a scalpel and extended laterally with surgeon's finger. The infant was then attempted delivery and was not able to delivery so a Kiwi was applied in a normal fashion with one pop off. The infant's head was then delivered atraumatically. The nose and mouth were suctioned with the suction bulb and the body followed. The cord was clamped and cut. The was handed off to awaiting quill skinner. The placenta was removed manually, noted that the cord was very short. The uterus was exteriorized and cleared of clots and debris. The hysterotomy was closed with 0 Monocryl in a running and locked fashion. For the second layer, the same suture was used to imbricate to ensure hemostasis. The uterus was returned to the abdomen and the peritoneal cavity was cleared of clots and debris. The rectus muscle and peritoneum were reapproximated with a 2-0 Chromic stitch. The fascia was closed with 0 Vicryl. The subcutaneous layer was closed with plain catgut and the skin was closed with 4-0 Vicryl. Patient tolerated the procedure well. Sponge, lap, and needle counts were correct x2. The patient was taken to recovery in stable condition. DICTATING PHYSICIAN: LUIS RIOS M.D. [id number] PHY#: [id number] ID: [id number] JOB#: [id number] ACCT: [id number] cc:LUIS RIOS M.D. >
[2017-01-05] MEDS ORDERED: ACETAMINOPHEN 100 ML IV ONE (20:00)
--- NOTE | 2017-01-05 20:02 | L&D Flow Sheet ---
LD Flowsheet Datetime Report Generated by CPN: 01/05/2017 20:00 Datetime: 01/05/2017 19:55 Pulse: 101 (QS system process) SpO2 (%): 99 (QS system process) Datetime: 01/05/2017 19:50 Pulse: 97 (QS system process) SpO2 (%): 100 (QS system process) Datetime: 01/05/2017 19:45 Pulse: 105 (QS system process) SpO2 (%): 100 (QS system process) Datetime: 01/05/2017 19:40 Pulse: 101 (QS system process) SpO2 (%): 99 (QS system process) Datetime: 01/05/2017 19:35 Pulse: 92 (QS system process) SpO2 (%): 97 (QS system process) Datetime: 01/05/2017 19:30 Pulse: 96 (QS system process) SpO2 (%): 100 (QS system process) Datetime: 01/05/2017 19:25 Pulse: 111 (QS system process) SpO2 (%): 99 (QS system process) Datetime: 01/05/2017 19:20 Pulse: 109 (QS system process) SpO2 (%): 100 (QS system process) Datetime: 01/05/2017 19:16 NBP Sys/Patricia/Mean (mmHg): 105 (QS system process) : 63 (QS system process) : 78 (QS system process) Pulse: 89 (QS system process) Respirations: 14 (Hilda Florez, RN) Datetime: 01/05/2017 19:15 Stage of : Recovery (Hilda Florez RN) Pulse: 97 (QS system process) SpO2 (%): 98 (QS system process) Temperature (F): 98.4 (Hilda Florez RN) Temperature (C): 36.9 (QS system process) Temperature Route: Oral (Hilda Florez RN) Pain Scale: 0 (Hilda Florez RN) Datetime: 01/05/2017 18:00 Monitor Mode: Internal (Reena Negro RN) Frequency (min): 1-2 (Reena Negro RN) Quality: Mild/Moderate (Reena Negro RN) Duration (sec): 40-70 (Reena Negro RN) Resting Tone (Palpate): Relaxed (Reena Negro RN) Monitor Mode: External US (Reena Negro RN) FHR Baseline Rate : 145 (Reena Negro RN) Variability: Moderate 6-25 bpm (Reena Negro RN) Accelerations: None (Reena Negro RN) Decelerations: None (Reena Negro RN) Datetime: 01/05/2017 17:56 Antiemetics/Antacids: Bicitra 15 ml PO (Elvia Quan, [facility]) Datetime: 01/05/2017 17:45 Monitor Mode: Internal (Reena Negro RN) Frequency (min): 1-1.5 (Reena Negro RN) Quality: Mild/Moderate (Reena Negro RN) Duration (sec): 50-80 (Reena Negro RN) Resting Tone (Palpate): Relaxed (Reena Negro RN) Monitor Mode: External US (Reena Negro RN) FHR Baseline Rate : 155 (Reena Negro RN) Variability: Moderate 6-25 bpm (Reena Negro RN) Accelerations: None (Reena Negro RN) Decelerations: Late (Reena Negro RN) Communication Comments: C/S called by Dr. Baldwin. All questions and concerns answered by RN and MD, pt and SO verbalized understanding and agreement with C/S. (Elvia Quan RNC) Datetime: 01/05/2017 17:42 Pitocin (milliunit): Pitocin Discontinued (Elvia Quan, [facility]) Datetime: 01/05/2017 17:41 Patient Position/Activity: Right Lateral (Elvia Quan, RNC) Datetime: 01/05/2017 17:30 Monitor Mode: Internal (Reena Marky, RN) Resting Tone (Palpate): Relaxed (Reenawilly Negro, RN) Contraction Comments: contractions not tracing on monitor (Reenawilly Negro, RN) Monitor Mode: External US (Reena Marky, RN) FHR Baseline Rate : 155 (Reena Marky, RN) Variability: Moderate 6-25 bpm (Reena Marky, RN) Accelerations: None (Reena Marky, RN) Datetime: 01/05/2017 17:25 Antibiotics: Ancef IV (Gm) @ 1 (Elvia Quan, RNC) Datetime: 01/05/2017 17:24 Monitor Interventions for UA: IUPC Inserted (Elvia Kadeem, RNC) Datetime: 01/05/2017 17:15 Monitor Mode: External (Reena Negro, RN) Frequency (min): 1-2 (Reena Negro, RN) Quality: Mild/Moderate (Reena Negro, RN) Duration (sec): 40-70 (Reena Negro, RN) Resting Tone (Palpate): Relaxed (Reena Negro, RN) Monitor Mode: External US (Reena Negro, RN) FHR Baseline Rate : 155 (Reena Negro, RN) Variability: Moderate 6-25 bpm (Reena Negro, RN) Accelerations: None (Reena Negro, RN) Decelerations: Late (Reena Negro, RN) Datetime: 01/05/2017 17:00 Monitor Mode: External (Rosmery Marhefka, RN) Frequency (min): 1-2 (Rosmery Marhefka, RN) Quality: Mild/Moderate (Rosmery Marhefka, RN) Duration (sec): 50-60 (Rosmery Marhefka, RN) Resting Tone (Palpate): Relaxed (Rosmery Marhefka, RN) Monitor Mode: External US (Rosmery Marhefka, RN) FHR Baseline Rate : 150 (Rosmery Marhefka, RN) FHR Baseline Changes: No Baseline Change (Rosmery Marhefka, RN) Variability: Moderate 6-25 bpm (Rosmery Marhefka, RN) Accelerations: None (Rosmery Marhefka, RN) Decelerations: Late (Rosmery Marhefka, RN) Datetime: 01/05/2017 16:45 Monitor Mode: External (Rosmery Marhefka, RN) Frequency (min): 1-2 (Rosmery Marhefka, RN) Quality: Mild/Moderate (Rosmery Marhefka, RN) Duration (sec): 50-60 (Rosmery Marhefka, RN) Resting Tone (Palpate): Relaxed (Rosmery Marhefka, RN) Monitor Mode: External US (Rosmery Marhefka, RN) FHR Baseline Rate : 160 (Rosmery Marhefka, RN) FHR Baseline Changes: No Baseline Change (Rosmery Marhefka, RN) Variability: Minimal - Undetectable to <=5 bpm (Rosmery Marhefka, RN) Accelerations: None (Rosmery Marhefka, RN) Decelerations: Variable (Rosmery Marhefka, RN) Datetime: 01/05/2017 16:30 Monitor Mode: External (Rosmery Marhefka, RN) Frequency (min): 1-2 (Rosmery Marhefka, RN) Quality: Mild/Moderate (Rosmery Marhefka, RN) Duration (sec): 50-60 (Rosmery Marhefka, RN) Resting Tone (Palpate): Relaxed (Rosmery Marhefka, RN) Monitor Mode: External US (Rosmery Marhefka, RN) FHR Baseline Rate : 150 (Rosmery Marhefka, RN) FHR Baseline Changes: No Baseline Change (Rosmery Marhefka, RN) Variability: Moderate 6-25 bpm (Rosmery Marhefka, RN) Accelerations: None (Rosmery Marhefka, RN) Decelerations: Late (Rosmery Marhefka, RN) Datetime: 01/05/2017 16:25 Dilatation (cm): 3.0 (ROXANA Trejo) Effacement (%): 70 (ROXANA Trejo) Station: -2 (ROXANA Trejo) Exam by: Willy Robles CNM (ROXANA Trejo) Membrane Status: Ruptured (ROXANA Trejo) Membranes Rupture Method: Artificial (ROXANA Trejo) Amniotic Fluid Color: Particulate Meconium (RXOANA Trejo) Amniotic Fluid Amount: Moderate (ROXANA Trejo) Datetime: 01/05/2017 16:23 Communication Comments: A Emmel CNM at (Elvia Quan RN) Datetime: 01/05/2017 16:15 Monitor Mode: External (Rosmery Nixon RN) Monitor Mode: External (Reena Negro RN) Frequency (min): 1-1.5 (Rosmery Nixon RN) Frequency (min): 1-2 (Reena Negro RN) Quality: Mild/Moderate (Rosmery Nixon RN) Quality: Mild/Moderate (Reena Negro RN) Duration (sec): 40-70 (Rosmery Nixon RN) Duration (sec): 40-70 (Reena Negro RN) Resting Tone (Palpate): Relaxed (Rosmery Nixon RN) Resting Tone (Palpate): Relaxed (Reena Negro RN) Monitor Mode: External US (Reena Negro RN) FHR Baseline Rate : 150 (Reena Negro RN) Variability: Moderate 6-25 bpm (Reena Negro RN) Accelerations: None (Reena Negro RN) Decelerations: Variable (Reena Negro RN) Datetime: 01/05/2017 16:00 Monitor Mode: External (Rosmery Nixon, RN) Monitor Mode: External (Reena Negro, RN) Frequency (min): 1-1.5 (Rosmery Nixon, RN) Frequency (min): 1-2 (Reena Negro RN) Quality: Mild/Moderate (Rosmery Nixon, RN) Quality: Mild/Moderate (Reena Negro, RN) Duration (sec): 40-70 (Rosmery Nixon, RN) Duration (sec): 40-70 (Reena Negro, RN) Resting Tone (Palpate): Relaxed (Rosmery Nixon, RN) Resting Tone (Palpate): Relaxed (Reena Negro, RN) Monitor Mode: External US (Reena Negro, RN) FHR Baseline Rate : 145 (Reena Negro, RN) Variability: Moderate 6-25 bpm (Reena Negro, RN) Accelerations: 15X15 (Reena Negro, RN) Decelerations: None (Reena Negro, RN) Datetime: 01/05/2017 15:54 NBP Sys/Patricia/Mean (mmHg): 144 (QS system process) : 94 (QS system process) : 114 (QS system process) Pulse: 78 (QS system process) LaborFlag: Labor (QS system process) Datetime: 01/05/2017 15:53 Pitocin (milliunit): Pitocin Increased to (milliunits) @ 16 (Renee Bermudez RN) Datetime: 01/05/2017 15:45 Monitor Mode: External (Rosmery Nixon RN) Monitor Mode: External (Reena Negro RN) Frequency (min): 1-1.5 (Rosmery Nixon RN) Frequency (min): 1-2 (Reena Negro RN) Quality: Mild/Moderate (Rosmery Nixon RN) Quality: Mild/Moderate (Reena Negro RN) Duration (sec): 40-60 (Rosmery Nixon RN) Duration (sec): 40-60 (Reena Negro RN) Resting Tone (Palpate): Relaxed (Rosmery Nixon RN) Resting Tone (Palpate): Relaxed (Reena Negro RN) Monitor Mode: External US (Reena Negro, RN) FHR Baseline Rate : 150 (Reena Negro, RN) Variability: Moderate 6-25 bpm (Reena Negro, RN) Accelerations: None (Reena Negro, RN) Decelerations: Late (Reena Negro, RN) Datetime: 01/05/2017 15:30 Monitor Mode: External; Palpation (Elvia Kadeem, RNC) Frequency (min): 1.5-2 (Elvia Kadeem, RNC) Quality: Mild/Moderate (Elvia Kadeem, RNC) Duration (sec): 60-90 (Elvia Kadeem, RNC) Duration Criteria: Less than Two 120 Second Contractions (Elvia Kadeem, RNC) Pattern: Normal: <= 5 Contractions in 10 Minutes (Elvia Kadeem, RNC) Resting Tone (Palpate): Relaxed (Elvia Kadeem, RNC) Monitor Mode: External US (Elvia Kadeem, RNC) FHR Baseline Rate : 150 (Elvia Kadeem, RNC) Variability: Moderate 6-25 bpm (Elvia Kadeem, RNC) Accelerations: None (Elvia Kadeem, RNC) Decelerations: Early; Late; Variable (Elvia Kadeem, RNC) Datetime: 01/05/2017 15:15 Monitor Mode: External; Palpation (Elvia Kadeem, RNC) Frequency (min): 2.5-3 (Elvia Kadeem, RNC) Quality: Mild/Moderate (Elvia Kadeem, RNC) Duration (sec): 50-80 (Elvia Kadeem, RNC) Duration Criteria: Less than Two 120 Second Contractions (Elvia Kadeem, RNC) Pattern: Normal: <= 5 Contractions in 10 Minutes (Elvia Kadeem, RNC) Resting Tone (Palpate): Relaxed (Elvia Kadeem, RNC) Monitor Mode: External US (Elvia Kadeem, RNC) FHR Baseline Rate : 150 (Elvia Kadeem, RNC) Variability: Moderate 6-25 bpm (Elvia Kadeem, RNC) Accelerations: 15X15 (Elvia Kadeem, RNC) Decelerations: Early (Elvia Kadeem, RNC) Datetime: 01/05/2017 15:00 Monitor Mode: External; Palpation (Elvia Kadeem, RNC) Frequency (min): 2-2.5 (Elvia Kadeem, RNC) Quality: Mild/Moderate (Elvia Kadeem, RNC) Duration (sec): 60-90 (Elvia Kadeem, RNC) Duration Criteria: Less than Two 120 Second Contractions (Elvia Kadeem, RNC) Pattern: Normal: <= 5 Contractions in 10 Minutes (Elvia Kadeem, RNC) Resting Tone (Palpate): Relaxed (Elvia Kadeem, RNC) Monitor Mode: External US (Elvia Kadeem, RNC) FHR Baseline Rate : 150 (Elvia Quan, RNC) Variability: Moderate 6-25 bpm (Elvia Quan, RNC) Accelerations: 15X15 (Elvia Quan, RNC) Decelerations: None (Elvia Quan, RNC) Datetime: 01/05/2017 14:49 Pitocin (milliunit): Pitocin Increased to (milliunits) @ 14 (Renee Broman, RN) Datetime: 01/05/2017 14:48 NBP Sys/Patricia/Mean (mmHg): 136 (QS system process) : 89 (QS system process) : 106 (QS system process) Pulse: 77 (QS system process) LaborFlag: Labor (QS system process) Datetime: 01/05/2017 14:45 Monitor Mode: External; Palpation (Elvia Kadeem, RNC) Frequency (min): 1-1.5 (Elvia Kadeem, RNC) Quality: Mild/Moderate (Elvia Kadeem, RNC) Duration (sec): 60-90 (Elvia Kadeem, RNC) Duration Criteria: Less than Two 120 Second Contractions (Elvia Kadeem, RNC) Pattern: Normal: <= 5 Contractions in 10 Minutes (Elvia Kadeem, RNC) Resting Tone (Palpate): Relaxed (Elvia Kadeem, RNC) Monitor Mode: External US (Elvia Kadeem, RNC) FHR Baseline Rate : 155 (Elvia Kadeem, RNC) Variability: Moderate 6-25 bpm (Elvia Kadeem, RNC) Accelerations: 15X15 (Elvia Kadeem, RNC) Decelerations: None (Elvia Kadeem, RNC) Datetime: 01/05/2017 14:30 Monitor Mode: External; Palpation (Elvia Kadeem, RNC) Frequency (min): 1-1.5 (Elvia Kadeem, RNC) Quality: Mild/Moderate (Elvia Kadeem, RNC) Duration (sec): 40-60 (Elvia Kadeem, RNC) Duration Criteria: Less than Two 120 Second Contractions (Elvia Kadeem, RNC) Pattern: Normal: <= 5 Contractions in 10 Minutes (Elvia Kadeem, RNC) Resting Tone (Palpate): Relaxed (Elvia Quan, RNC) Monitor Mode: External US (Elvia Quan, RNC) FHR Baseline Rate : 145 (Elvia Quan, RNC) Variability: Moderate 6-25 bpm (Elvia Quan, RNC) Accelerations: 15X15 (Elvia Quan, RNC) Decelerations: None (Elvia Quan, RNC) Datetime: 01/05/2017 14:08 Monitor Interventions for UA: Bono Adjusted (Elvia Quan, RNC) Datetime: 01/05/2017 14:03 Pattern: Tachysystole: > 5 Contractions in 10 Minutes (Rosmery Nixon RN) Contraction Comments: Dr. Baldwin on unit and made aware of uterine pattern and patient's pain level. Order received to continue increasing Pitocin. (Rosmery Nixon RN) Datetime: 01/05/2017 14:00 Monitor Mode: External (Rosmery Marhefka, RN) Frequency (min): 1-2 (Rosmery Marhefka, RN) Quality: Mild/Moderate (Rosmery Marhefka, RN) Duration (sec): 30-40 (Rosmery Marhefka, RN) Resting Tone (Palpate): Relaxed (Rosmery Marhefka, RN) Monitor Mode: External US (Rosmery Marhefka, RN) FHR Baseline Rate : 140 (Rosmery Marhefka, RN) FHR Baseline Changes: No Baseline Change (Rosmery Marhefka, RN) Variability: Moderate 6-25 bpm (Rosmery Marhefka, RN) Accelerations: None (Rosmery Marhefka, RN) Decelerations: None (Rosmery Marhefka, RN) Datetime: 01/05/2017 13:45 Monitor Mode: External (Rosmery Marhefka, RN) Frequency (min): 1-2 (Rosmery Marhefka, RN) Quality: Mild/Moderate (Rosmery Marhefka, RN) Duration (sec): 40-60 (Rosmery Marhefka, RN) Resting Tone (Palpate): Relaxed (Rosmery Marhefka, RN) Monitor Mode: External US (Rosmery Marhefka, RN) FHR Baseline Rate : 145 (Rosmery Marhefka, RN) FHR Baseline Changes: No Baseline Change (Rosmery Marhefka, RN) Variability: Moderate 6-25 bpm (Rosmery Marhefka, RN) Accelerations: 15X15 (Rosmery Marhefka, RN) Decelerations: None (Rosmery Marhefka, RN) Datetime: 01/05/2017 13:30 Monitor Mode: External (Rosmery Marhefka, RN) Frequency (min): 1-1.5 (Rosmery Marhefka, RN) Quality: Mild/Moderate (Rosmery Marhefka, RN) Duration (sec): 40-60 (Rosmery Marhefka, RN) Resting Tone (Palpate): Relaxed (Rosmery Marhefka, RN) Monitor Mode: External US (Rosmery Marhefka, RN) FHR Baseline Rate : 140 (Rosmery Marhefka, RN) FHR Baseline Changes: No Baseline Change (Rosmery Marhefka, RN) Variability: Moderate 6-25 bpm (Rosmery Marhefka, RN) Accelerations: 15X15 (Rosmery Marhefka, RN) Decelerations: None (Rosmery Marhefka, RN) Datetime: 01/05/2017 13:15 Monitor Mode: External; Palpation (Rosmery Marhefka, RN) Frequency (min): 1-2 (Rosmery Marhefka, RN) Quality: Mild/Moderate (Rosmery Marhefka, RN) Duration (sec): 50-90 (Rosmery Marhefka, RN) Resting Tone (Palpate): Relaxed (Rosmery Marhefka, RN) Monitor Mode: External US (Rosmery Marhefka, RN) FHR Baseline Rate : 145 (Rosmery Marhefka, RN) FHR Baseline Changes: No Baseline Change (Rosmery Marhefka, RN) Variability: Moderate 6-25 bpm (Rosmery Marhefka, RN) Accelerations: 15X15 (Rosmery Marhefka, RN) Decelerations: None (Rosmery Marhefka, RN) Datetime: 01/05/2017 13:00 Monitor Mode: External (Rosmery Marhefka, RN) Frequency (min): 1-2 (Rosmery Marhefka, RN) Quality: Mild/Moderate (Rosmery Marhefka, RN) Duration (sec): 50-60 (Rosmery Marhefka, RN) Resting Tone (Palpate): Relaxed (Rosmery Marhefka, RN) Monitor Mode: External US (Rosmery Marhefka, RN) FHR Baseline Rate : 150 (Rosmery Marhefka, RN) FHR Baseline Changes: No Baseline Change (Rosmery Marhefka, RN) Variability: Moderate 6-25 bpm (Rosmery Marhefka, RN) Accelerations: None (Rosmery Marhefka, RN) Decelerations: None (Rosmery Marhefka, RN) Datetime: 01/05/2017 12:45 Monitor Mode: External (Rosmery Marhefka, RN) Frequency (min): 1-1.5 (Rosmery Marhefka, RN) Quality: Mild/Moderate (Rosmery Marhefka, RN) Duration (sec): 40-70 (Rosmery Marhefka, RN) Resting Tone (Palpate): Relaxed (Rosmery Marhefka, RN) Monitor Mode: External US (Rosmery Marhefka, RN) FHR Baseline Rate : 150 (Rosmery Marhefka, RN) FHR Baseline Changes: No Baseline Change (Rosmery Marhefka, RN) Variability: Moderate 6-25 bpm (Rosmery Marhefka, RN) Accelerations: 15X15 (Rosmery Marhefka, RN) Decelerations: None (Rosmery Marhefka, RN) Datetime: 01/05/2017 12:32 I/O Interventions: Up to BR (Rosmery Nixon, RN) Datetime: 01/05/2017 12:30 Monitor Mode: External (Reena Negro RN) Frequency (min): 1-1.5 (Reena Negro RN) Quality: Mild/Moderate (Reena Negro RN) Duration (sec): 40-60 (Reena Negor RN) Resting Tone (Palpate): Relaxed (Reena Negro RN) Monitor Mode: External US (Reena Negro RN) FHR Baseline Rate : 145 (Reena Negro, RN) Variability: Moderate 6-25 bpm (Reena Negro, RN) Accelerations: 10X10 (Reena Negro, RN) Decelerations: None (Reena Negro, RN) Pitocin (milliunit): Pitocin Increased to (milliunits) @ (Annotations: 12) (Rosmery Nixon, RN) Datetime: 01/05/2017 12:15 Monitor Mode: External (Reena Negro, RN) Frequency (min): 1-1.5 (Reena Negro, RN) Quality: Mild/Moderate (Reena Negro, RN) Duration (sec): 30-60 (Reena Negro, RN) Resting Tone (Palpate): Relaxed (Reena Negro, RN) Monitor Mode: External US (Reena Negro, RN) FHR Baseline Rate : 150 (Reena Negro, RN) Variability: Moderate 6-25 bpm (Reena Negro, RN) Accelerations: None (Reena Negro, RN) Decelerations: None (Reena Negro, RN) Datetime: 01/05/2017 12:00 Monitor Mode: External (Reena Negro, RN) Frequency (min): 1-2 (Reena Negro, RN) Quality: Mild/Moderate (Reena Negro, RN) Duration (sec): 30-60 (Reena Negro, RN) Resting Tone (Palpate): Relaxed (Reena Negro, RN) Monitor Mode: External US (Reena Negro, RN) FHR Baseline Rate : 145 (Reena Negro, RN) Variability: Moderate 6-25 bpm (Reena Negro, RN) Accelerations: 15X15 (Reena Negro, RN) Decelerations: None (Reena Negro, RN) Datetime: 01/05/2017 11:45 Monitor Mode: External (Reena Negro RN) Frequency (min): 1-2 (Reena Negro RN) Quality: Mild/Moderate (Reena Negro RN) Duration (sec): 30-60 (Reena Negro, RN) Resting Tone (Palpate): Relaxed (Reena Negro, RN) Monitor Mode: External US (Reena Negro RN) FHR Baseline Rate : 145 (Reena Negro, RN) Variability: Moderate 6-25 bpm (Reena Negro, RN) Accelerations: 15X15 (Reena Negro, RN) Decelerations: None (Reena Negro, RN) Pitocin (milliunit): Pitocin Increased to (milliunits) @ (Annotations: 10) (Elvia Quan, [facility]) Datetime: 01/05/2017 11:30 Monitor Mode: External (Reena Negro RN) Frequency (min): 1-2 (Reena Negro RN) Quality: Mild/Moderate (Reena Negro, RN) Duration (sec): 30-60 (Reena Negro, RN) Resting Tone (Palpate): Relaxed (Reena Negro, RN) Monitor Mode: External US (Reena Negro, RN) FHR Baseline Rate : 150 (Reena Negro, RN) Variability: Moderate 6-25 bpm (Reena Negro, RN) Accelerations: 15X15 (Reena Negro, RN) Decelerations: None (Reena Negro, RN) Pitocin (milliunit): Pitocin Increased to (milliunits) @ (Annotations: 8) (Elvia Quan RNC) Datetime: 01/05/2017 11:15 Monitor Mode: External (Reena Negro RN) Frequency (min): 1-3 (Reena Negro RN) Quality: Mild/Moderate (Reena Negro RN) Duration (sec): 40-60 (Reena Negro RN) Resting Tone (Palpate): Relaxed (Reena Negro RN) Monitor Mode: External US (Reena Negro RN) FHR Baseline Rate : 145 (Reena Negro RN) Variability: Moderate 6-25 bpm (Reena Negro RN) Accelerations: 15X15 (Reena Negro RN) Decelerations: None (Reena Negro RN) Pitocin (milliunit): Pitocin Increased to (milliunits) @ (Annotations: 6) (Elvia Quan, [facility]) Datetime: 01/05/2017 11:07 NBP Sys/Patricia/Mean (mmHg): 152 (QS system process) : 81 (QS system process) : 108 (QS system process) Pulse: 86 (QS system process) LaborFlag: Labor (QS system process) Datetime: 01/05/2017 11:00 Monitor Mode: External; Palpation (Elvia Kadeem, RNC) Frequency (min): 1.5-2 (Elvia Kadeem, RNC) Quality: Mild/Moderate (Elvia Kadeem, RNC) Duration (sec): 60-90 (Elvia Kadeem, RNC) Duration Criteria: Less than Two 120 Second Contractions (Elvia Kadeem, RNC) Pattern: Normal: <= 5 Contractions in 10 Minutes (Elvia Kadeem, RNC) Resting Tone (Palpate): Relaxed (Elvia Kadeem, RNC) Monitor Mode: External US (Elvia Kadeem, RNC) FHR Baseline Rate : 145 (Elvia Kadeem, RNC) Variability: Moderate 6-25 bpm (Elvia Kadeem, RNC) Accelerations: 15X15 (Elvia Kadeem, RNC) Decelerations: None (Elvia Kadeem, RNC) Pitocin (milliunit): Pitocin Increased to (milliunits) @ 4 (Elvia Kadeem, RNC) Datetime: 01/05/2017 10:45 Monitor Mode: External; Palpation (Elvia Quan RNC) Frequency (min): 1.5-2 (ROXANA Trejo) Quality: Mild (Elvia Quan RNC) Duration (sec): 60-90 (Elvia Quan, RNC) Duration Criteria: Less than Two 120 Second Contractions (Elvia Quan, RNC) Pattern: Normal: <= 5 Contractions in 10 Minutes (Elvia Quan RNC) Resting Tone (Palpate): Relaxed (Elvia Quan RNC) Monitor Mode: External US (Elvia Quan RNC) FHR Baseline Rate : 145 (Elvia Quan RNC) Variability: Moderate 6-25 bpm (Elvia Quan RNC) Accelerations: 15X15 (Elvia Quan RNC) Decelerations: None (Elvia Quan RNC) Pitocin (milliunit): Pitocin Started (milliunits) @ 2; Pitocin 20 Units in 1000ml NS (ROXANA Trejo) Antibiotics: Start Antibiotics; Ancef IV (Gm) @ 1 (Elvia Quan RNC) Datetime: 01/05/2017 10:30 Monitor Mode: External; Palpation (Elvia Quan RNC) Frequency (min): 3-5 (Elvia Quan RNC) Quality: Mild (Elvia Quan, RNC) Duration (sec): 60-90 (Elvia Quan, RNC) Duration Criteria: Less than Two 120 Second Contractions (Elvia Quan, RNC) Pattern: Normal: <= 5 Contractions in 10 Minutes (Elvia Quan RNC) Resting Tone (Palpate): Relaxed (ROXANA Trejo) Monitor Mode: External US (ROXANA Trejo) FHR Baseline Rate : 135 (ROXANA Trejo) Variability: Moderate 6-25 bpm (ROXANA Trejo) Accelerations: 15X15 (ROXANA Trejo) Decelerations: None (ROXANA Trejo) Datetime: 01/05/2017 10:04 Communication Comments: New orders received for Pitocin. (ROXANA Trejo) Datetime: 01/05/2017 10:03 Dilatation (cm): 2.0 (ROXANA Trejo) Effacement (%): 50 (ROXANA Trejo) Station: -2 (ROXANA Trejo) Exam by: Willy ROBLES CNM (ROXANA Trejo) Vaginal Bleeding: Normal Show (ROXANA Trejo) Cervix, Position: Midposition (ROXANA Trejo) Datetime: 01/05/2017 08:55 Comments: Monitors removed from abdomen to eat breakfast and take shower. (Elvia Quan, RNC) Datetime: 01/05/2017 08:51 NBP Sys/Patricia/Mean (mmHg): 143 (QS system process) : 90 (QS system process) : 111 (QS system process) Pulse: 94 (QS system process) LaborFlag: Labor (QS system process) Datetime: 01/05/2017 08:30 Monitor Mode: External; Palpation (Elvia Quan RNC) Frequency (min): 1.5-2 (Elvia Kadeem, RNC) Quality: Mild (Elvia Kadeem, RNC) Duration (sec): 60-90 (Elvia Kadeem, RNC) Duration Criteria: Less than Two 120 Second Contractions (Elvia Kadeem, RNC) Pattern: Normal: <= 5 Contractions in 10 Minutes (Elvia Kadeem, RNC) Resting Tone (Palpate): Relaxed (Elvia Kadeem, RNC) Monitor Mode: External US (Elvia Kadeem, RNC) FHR Baseline Rate : 130 (Elvia Kadeem, RNC) Variability: Moderate 6-25 bpm (Elvia Kadeem, RNC) Accelerations: 15X15 (Elvia Kadeem, RNC) Decelerations: None (Elvia Kadeem, RNC) Datetime: 01/05/2017 08:21 NBP Sys/Patricia/Mean (mmHg): 151 (QS system process) : 96 (QS system process) : 118 (QS system process) Pulse: 92 (QS system process) LaborFlag: Labor (QS system process) Datetime: 01/05/2017 08:05 NBP Sys/Patricia/Mean (mmHg): 163 (QS system process) : 102 (QS system process) : 126 (QS system process) Pulse: 97 (QS system process) Respirations: 17 (Elvia Quan, RNC) Temperature (F): 98.0 (Elvia uQan, RNC) Temperature (C): 36.7 (QS system process) Level of Consciousness: Fully Conscious (Elvia Quan, RNC) DTR's/Clonus: DTRs 2+; No Clonus (Elvia Quan, RNC) Headache: Denies (Elvia Quan, RNC) Breath Sounds, Left: Clear and Equal (Elvia Quan, RNC) Breath Sounds, Right: Clear and Equal (Elvia Quna, RNC) Nausea/Vomiting: Denies (Elvia Quan, RNC) RUQ Epigastric Pain: Denies (Elvia Quan, RNC) LaborFlag: Labor (QS system process) Datetime: 01/05/2017 08:03 Dilatation (cm): 1.5 (Elvia Quan, RNC) Effacement (%): 50 (Elvia Quan, RNC) Station: -3 (Elvia Quan, RNC) Exam by: Dre SCHMIDT (Elvia Quan, RNC) Datetime: 01/05/2017 08:00 Monitor Mode: External; Palpation (ROXANA Trejo) Frequency (min): 1.5-2 (ROXANA Trejo) Quality: Mild (ROXANA Trejo) Duration (sec): 60-90 (ROXANA Trejo) Duration Criteria: Less than Two 120 Second Contractions (ROXANA Trejo) Pattern: Normal: <= 5 Contractions in 10 Minutes (ROXANA Trejo) Resting Tone (Palpate): Relaxed (ROXNAA Trejo) Monitor Mode: External US (ROXANA Trejo) FHR Baseline Rate : 135 (ROXANA Trejo) Variability: Moderate 6-25 bpm (ROXANA Trejo) Accelerations: None (ROXANA Trejo) Decelerations: None (ROXANA Trejo)
--- NOTE | 2017-01-05 20:03 | L&D Flow Sheet ---
LD Flowsheet Datetime Report Generated by CPN: 01/05/2017 20:00 Datetime: 01/05/2017 19:55 Pulse: 101 (QS system process) SpO2 (%): 99 (QS system process) Datetime: 01/05/2017 19:50 Pulse: 97 (QS system process) SpO2 (%): 100 (QS system process) Datetime: 01/05/2017 19:45 Pulse: 105 (QS system process) SpO2 (%): 100 (QS system process) Datetime: 01/05/2017 19:40 Pulse: 101 (QS system process) SpO2 (%): 99 (QS system process) Datetime: 01/05/2017 19:35 Pulse: 92 (QS system process) SpO2 (%): 97 (QS system process) Datetime: 01/05/2017 19:30 Pulse: 96 (QS system process) SpO2 (%): 100 (QS system process) Datetime: 01/05/2017 19:25 Pulse: 111 (QS system process) SpO2 (%): 99 (QS system process) Datetime: 01/05/2017 19:20 Pulse: 109 (QS system process) SpO2 (%): 100 (QS system process) Datetime: 01/05/2017 19:16 NBP Sys/Patricia/Mean (mmHg): 105 (QS system process) : 63 (QS system process) : 78 (QS system process) Pulse: 89 (QS system process) Respirations: 14 (Hilda Florez, RN) Datetime: 01/05/2017 19:15 Stage of : Recovery (Hilda Florez RN) Pulse: 97 (QS system process) SpO2 (%): 98 (QS system process) Temperature (F): 98.4 (Hilda Florez RN) Temperature (C): 36.9 (QS system process) Temperature Route: Oral (Hilda Florez RN) Pain Scale: 0 (Hilda Florez RN) Datetime: 01/05/2017 18:00 Monitor Mode: Internal (Reena Negro RN) Frequency (min): 1-2 (Reena Negro RN) Quality: Mild/Moderate (Reena Negro RN) Duration (sec): 40-70 (Reena Negro RN) Resting Tone (Palpate): Relaxed (Reena Negro RN) Monitor Mode: External US (Reena Negro RN) FHR Baseline Rate : 145 (Reena Negro RN) Variability: Moderate 6-25 bpm (Reena Negro RN) Accelerations: None (Reena Negro RN) Decelerations: None (Reena Negro RN) Datetime: 01/05/2017 17:56 Antiemetics/Antacids: Bicitra 15 ml PO (Elvia Quan, [facility]) Datetime: 01/05/2017 17:45 Monitor Mode: Internal (Reena Negro RN) Frequency (min): 1-1.5 (Reena Negro RN) Quality: Mild/Moderate (Reena Negro RN) Duration (sec): 50-80 (Reena Negro RN) Resting Tone (Palpate): Relaxed (Reena Negro RN) Monitor Mode: External US (Reena Negro RN) FHR Baseline Rate : 155 (Reena Negro RN) Variability: Moderate 6-25 bpm (Reena Negro RN) Accelerations: None (Reena Negro RN) Decelerations: Late (Reena Negro RN) Communication Comments: C/S called by Dr. Baldwin. All questions and concerns answered by RN and MD, pt and SO verbalized understanding and agreement with C/S. (Elvia Quan RNC) Datetime: 01/05/2017 17:42 Pitocin (milliunit): Pitocin Discontinued (Elvia Quan, [facility]) Datetime: 01/05/2017 17:41 Patient Position/Activity: Right Lateral (Elvia Quan, RNC) Datetime: 01/05/2017 17:30 Monitor Mode: Internal (Reena Marky, RN) Resting Tone (Palpate): Relaxed (Reenawilly Negro, RN) Contraction Comments: contractions not tracing on monitor (Reenawilly Negro, RN) Monitor Mode: External US (Reena Marky, RN) FHR Baseline Rate : 155 (Reena Marky, RN) Variability: Moderate 6-25 bpm (Reena Marky, RN) Accelerations: None (Reena Marky, RN) Datetime: 01/05/2017 17:25 Antibiotics: Ancef IV (Gm) @ 1 (Elvia Quan, RNC) Datetime: 01/05/2017 17:24 Monitor Interventions for UA: IUPC Inserted (Elvia Kadeem, RNC) Datetime: 01/05/2017 17:15 Monitor Mode: External (Reena Negor, RN) Frequency (min): 1-2 (Reena Negro, RN) Quality: Mild/Moderate (Reena Negro, RN) Duration (sec): 40-70 (Reena Negro, RN) Resting Tone (Palpate): Relaxed (Reena Negro, RN) Monitor Mode: External US (Reena Negro, RN) FHR Baseline Rate : 155 (Reena Negro, RN) Variability: Moderate 6-25 bpm (Reena Negro, RN) Accelerations: None (Reena Negro, RN) Decelerations: Late (Reena Negro, RN) Datetime: 01/05/2017 17:00 Monitor Mode: External (Rosmery Marhefka, RN) Frequency (min): 1-2 (Rosmery Marhefka, RN) Quality: Mild/Moderate (Rosmery Marhefka, RN) Duration (sec): 50-60 (Rosmery Marhefka, RN) Resting Tone (Palpate): Relaxed (Rosmery Marhefka, RN) Monitor Mode: External US (Rosmery Marhefka, RN) FHR Baseline Rate : 150 (Rosmery Marhefka, RN) FHR Baseline Changes: No Baseline Change (Rosmery Marhefka, RN) Variability: Moderate 6-25 bpm (Rosmery Marhefka, RN) Accelerations: None (Rosmery Marhefka, RN) Decelerations: Late (Rosmery Marhefka, RN) Datetime: 01/05/2017 16:45 Monitor Mode: External (Rosmery Marhefka, RN) Frequency (min): 1-2 (Rosmery Marhefka, RN) Quality: Mild/Moderate (Rosmery Marhefka, RN) Duration (sec): 50-60 (Rosmery Marhefka, RN) Resting Tone (Palpate): Relaxed (Rosmery Marhefka, RN) Monitor Mode: External US (Rosmery Marhefka, RN) FHR Baseline Rate : 160 (Rosmery Marhefka, RN) FHR Baseline Changes: No Baseline Change (Rosmery Marhefka, RN) Variability: Minimal - Undetectable to <=5 bpm (Rosmery Marhefka, RN) Accelerations: None (Rosmery Marhefka, RN) Decelerations: Variable (Rosmery Marhefka, RN) Datetime: 01/05/2017 16:30 Monitor Mode: External (Rosmery Marhefka, RN) Frequency (min): 1-2 (Rosmery Marhefka, RN) Quality: Mild/Moderate (Rosmery Marhefka, RN) Duration (sec): 50-60 (Rosmery Marhefka, RN) Resting Tone (Palpate): Relaxed (Rosmery Marhefka, RN) Monitor Mode: External US (Rosmery Marhefka, RN) FHR Baseline Rate : 150 (Rosmery Marhefka, RN) FHR Baseline Changes: No Baseline Change (Rosmery Marhefka, RN) Variability: Moderate 6-25 bpm (Rosmery Marhefka, RN) Accelerations: None (Rosmery Marhefka, RN) Decelerations: Late (Rosmery Marhefka, RN) Datetime: 01/05/2017 16:25 Dilatation (cm): 3.0 (ROXANA Trejo) Effacement (%): 70 (ROXANA Trejo) Station: -2 (ROXANA Trejo) Exam by: Willy Robles CNM (ROXANA Trejo) Membrane Status: Ruptured (ROXANA Trejo) Membranes Rupture Method: Artificial (ROXANA Trejo) Amniotic Fluid Color: Particulate Meconium (ROAXNA Trejo) Amniotic Fluid Amount: Moderate (ROXANA Trejo) Datetime: 01/05/2017 16:23 Communication Comments: A Emmel CNM at (Elvia Quan RN) Datetime: 01/05/2017 16:15 Monitor Mode: External (Rosmery Nixon RN) Monitor Mode: External (Reena Negro RN) Frequency (min): 1-1.5 (Rosmery Nixon RN) Frequency (min): 1-2 (Reena Negro RN) Quality: Mild/Moderate (Rosmery Nixon RN) Quality: Mild/Moderate (Reena Negro RN) Duration (sec): 40-70 (Rosmery Nixon RN) Duration (sec): 40-70 (Reena Negro RN) Resting Tone (Palpate): Relaxed (Rosmery Nixon RN) Resting Tone (Palpate): Relaxed (Reena Negro RN) Monitor Mode: External US (Reena Negro RN) FHR Baseline Rate : 150 (Reena Negro RN) Variability: Moderate 6-25 bpm (Reena Negro RN) Accelerations: None (Reena Negro RN) Decelerations: Variable (Reena Negro RN) Datetime: 01/05/2017 16:00 Monitor Mode: External (Rosmery Nixon, RN) Monitor Mode: External (Reena Negro, RN) Frequency (min): 1-1.5 (Rosmery Nixon, RN) Frequency (min): 1-2 (Reena Negro RN) Quality: Mild/Moderate (Rosmery Nixon, RN) Quality: Mild/Moderate (Reena Negro, RN) Duration (sec): 40-70 (Rosmery Nixon, RN) Duration (sec): 40-70 (Reena Negro, RN) Resting Tone (Palpate): Relaxed (Rosmery Nixon, RN) Resting Tone (Palpate): Relaxed (Reena Negro, RN) Monitor Mode: External US (Reena Negro, RN) FHR Baseline Rate : 145 (Reena Negro, RN) Variability: Moderate 6-25 bpm (Reena Negro, RN) Accelerations: 15X15 (Reena Negro, RN) Decelerations: None (Reena Negro, RN) Datetime: 01/05/2017 15:54 NBP Sys/Patricia/Mean (mmHg): 144 (QS system process) : 94 (QS system process) : 114 (QS system process) Pulse: 78 (QS system process) LaborFlag: Labor (QS system process) Datetime: 01/05/2017 15:53 Pitocin (milliunit): Pitocin Increased to (milliunits) @ 16 (Renee Bermudez RN) Datetime: 01/05/2017 15:45 Monitor Mode: External (Rosmery Nixon RN) Monitor Mode: External (Reena Negro RN) Frequency (min): 1-1.5 (Rosmery Nixon RN) Frequency (min): 1-2 (Reena Negro RN) Quality: Mild/Moderate (Rosmery Nixon RN) Quality: Mild/Moderate (Reena Negro RN) Duration (sec): 40-60 (Rosmery Nixon RN) Duration (sec): 40-60 (Reena Negro RN) Resting Tone (Palpate): Relaxed (Rosmery Nixon RN) Resting Tone (Palpate): Relaxed (Reena Negro RN) Monitor Mode: External US (Reena Negro, RN) FHR Baseline Rate : 150 (Reena Negro, RN) Variability: Moderate 6-25 bpm (Reena Negro, RN) Accelerations: None (Reena Negro, RN) Decelerations: Late (Reena Negro, RN) Datetime: 01/05/2017 15:30 Monitor Mode: External; Palpation (Elvia Kadeem, RNC) Frequency (min): 1.5-2 (Elvia Kadeem, RNC) Quality: Mild/Moderate (Elvia Kadeem, RNC) Duration (sec): 60-90 (Elvia Kadeem, RNC) Duration Criteria: Less than Two 120 Second Contractions (Elvia Kadeem, RNC) Pattern: Normal: <= 5 Contractions in 10 Minutes (Elvia Kadeem, RNC) Resting Tone (Palpate): Relaxed (Elvia Kadeem, RNC) Monitor Mode: External US (Elvia Kadeem, RNC) FHR Baseline Rate : 150 (Elvia Kadeem, RNC) Variability: Moderate 6-25 bpm (Elvia Kadeem, RNC) Accelerations: None (Elvia Kadeem, RNC) Decelerations: Early; Late; Variable (Elvia Kadeem, RNC) Datetime: 01/05/2017 15:15 Monitor Mode: External; Palpation (Elvia Kadeem, RNC) Frequency (min): 2.5-3 (Elvia Kadeem, RNC) Quality: Mild/Moderate (Elvia Kadeem, RNC) Duration (sec): 50-80 (Elvia Kadeem, RNC) Duration Criteria: Less than Two 120 Second Contractions (Elvia Kadeem, RNC) Pattern: Normal: <= 5 Contractions in 10 Minutes (Elvia Kadeem, RNC) Resting Tone (Palpate): Relaxed (Elvia Kadeem, RNC) Monitor Mode: External US (Elvia Kadeem, RNC) FHR Baseline Rate : 150 (Elvia Kaedem, RNC) Variability: Moderate 6-25 bpm (Elvia Kadeem, RNC) Accelerations: 15X15 (Elvia Kadeem, RNC) Decelerations: Early (Elvia Kadeem, RNC) Datetime: 01/05/2017 15:00 Monitor Mode: External; Palpation (Elvia Kadeem, RNC) Frequency (min): 2-2.5 (Elvia Kadeem, RNC) Quality: Mild/Moderate (Elvia Kadeem, RNC) Duration (sec): 60-90 (Elvia Kadeem, RNC) Duration Criteria: Less than Two 120 Second Contractions (Evlia Kadeem, RNC) Pattern: Normal: <= 5 Contractions in 10 Minutes (Elvia Kadeem, RNC) Resting Tone (Palpate): Relaxed (Elvia Kadeem, RNC) Monitor Mode: External US (Elvia Kadeem, RNC) FHR Baseline Rate : 150 (Elvia Quan, RNC) Variability: Moderate 6-25 bpm (Elvia Quan, RNC) Accelerations: 15X15 (Elvia Quan, RNC) Decelerations: None (Elvia Quan, RNC) Datetime: 01/05/2017 14:49 Pitocin (milliunit): Pitocin Increased to (milliunits) @ 14 (Renee Broman, RN) Datetime: 01/05/2017 14:48 NBP Sys/Patricia/Mean (mmHg): 136 (QS system process) : 89 (QS system process) : 106 (QS system process) Pulse: 77 (QS system process) LaborFlag: Labor (QS system process) Datetime: 01/05/2017 14:45 Monitor Mode: External; Palpation (Elvia Kadeem, RNC) Frequency (min): 1-1.5 (Elvia Kadeem, RNC) Quality: Mild/Moderate (Elvia Kadeem, RNC) Duration (sec): 60-90 (Elvia Kadeem, RNC) Duration Criteria: Less than Two 120 Second Contractions (Elvia Kadeem, RNC) Pattern: Normal: <= 5 Contractions in 10 Minutes (Elvia Kadeem, RNC) Resting Tone (Palpate): Relaxed (Elvia Kadeem, RNC) Monitor Mode: External US (Elvia Kadeem, RNC) FHR Baseline Rate : 155 (Elvia Kadeem, RNC) Variability: Moderate 6-25 bpm (Elvia Kadeem, RNC) Accelerations: 15X15 (Elvia Kadeem, RNC) Decelerations: None (Elvia Kadeem, RNC) Datetime: 01/05/2017 14:30 Monitor Mode: External; Palpation (Elvia Kadeem, RNC) Frequency (min): 1-1.5 (Elvia Kadeem, RNC) Quality: Mild/Moderate (Elvia Kadeem, RNC) Duration (sec): 40-60 (Elvia Kadeem, RNC) Duration Criteria: Less than Two 120 Second Contractions (Elvia Kadeem, RNC) Pattern: Normal: <= 5 Contractions in 10 Minutes (Elvia Kadeem, RNC) Resting Tone (Palpate): Relaxed (Elvia Quan, RNC) Monitor Mode: External US (Elvia Quan, RNC) FHR Baseline Rate : 145 (Elvia Quan, RNC) Variability: Moderate 6-25 bpm (Elvia Quan, RNC) Accelerations: 15X15 (Elvia Quan, RNC) Decelerations: None (Elvia Quan, RNC) Datetime: 01/05/2017 14:08 Monitor Interventions for UA: [place] Adjusted (Elvia Quan, RNC) Datetime: 01/05/2017 14:03 Pattern: Tachysystole: > 5 Contractions in 10 Minutes (Rosmery Nixon RN) Contraction Comments: Dr. Baldwin on unit and made aware of uterine pattern and patient's pain level. Order received to continue increasing Pitocin. (Rosmery Nixon RN) Datetime: 01/05/2017 14:00 Monitor Mode: External (Rosmery Marhefka, RN) Frequency (min): 1-2 (Rosmery Marhefka, RN) Quality: Mild/Moderate (Rosmery Marhefka, RN) Duration (sec): 30-40 (Rosmery Marhefka, RN) Resting Tone (Palpate): Relaxed (Rosmery Marhefka, RN) Monitor Mode: External US (Rosmery Marhefka, RN) FHR Baseline Rate : 140 (Rosmery Marhefka, RN) FHR Baseline Changes: No Baseline Change (Rosmery Marhefka, RN) Variability: Moderate 6-25 bpm (Rosmery Marhefka, RN) Accelerations: None (Rosmery Marhefka, RN) Decelerations: None (Rosmery Marhefka, RN) Datetime: 01/05/2017 13:45 Monitor Mode: External (Rosmery Marhefka, RN) Frequency (min): 1-2 (Rosmery Marhefka, RN) Quality: Mild/Moderate (Rosmery Marhefka, RN) Duration (sec): 40-60 (Rosmery Marhefka, RN) Resting Tone (Palpate): Relaxed (Rosmery Marhefka, RN) Monitor Mode: External US (Rosmery Marhefka, RN) FHR Baseline Rate : 145 (Rosmery Marhefka, RN) FHR Baseline Changes: No Baseline Change (Rosmery Marhefka, RN) Variability: Moderate 6-25 bpm (Rosmery Marhefka, RN) Accelerations: 15X15 (Rosmery Marhefka, RN) Decelerations: None (Rosmery Marhefka, RN) Datetime: 01/05/2017 13:30 Monitor Mode: External (Rosmery Marhefka, RN) Frequency (min): 1-1.5 (Rosmery Marhefka, RN) Quality: Mild/Moderate (Rosmery Marhefka, RN) Duration (sec): 40-60 (Rosmery Marhefka, RN) Resting Tone (Palpate): Relaxed (Rosmery Marhefka, RN) Monitor Mode: External US (Rosmery Marhefka, RN) FHR Baseline Rate : 140 (Rosmery Marhefka, RN) FHR Baseline Changes: No Baseline Change (Rosmery Marhefka, RN) Variability: Moderate 6-25 bpm (Rosmery Marhefka, RN) Accelerations: 15X15 (Rosmery Marhefka, RN) Decelerations: None (Rosmery Marhefka, RN) Datetime: 01/05/2017 13:15 Monitor Mode: External; Palpation (Rosmery Marhefka, RN) Frequency (min): 1-2 (Rosmery Marhefka, RN) Quality: Mild/Moderate (Rosmery Marhefka, RN) Duration (sec): 50-90 (Rosmery Marhefka, RN) Resting Tone (Palpate): Relaxed (Rosmery Marhefka, RN) Monitor Mode: External US (Rosmery Marhefka, RN) FHR Baseline Rate : 145 (Rosmery Marhefka, RN) FHR Baseline Changes: No Baseline Change (Rosmery Marhefka, RN) Variability: Moderate 6-25 bpm (Rosmery Marhefka, RN) Accelerations: 15X15 (Rosmery Marhefka, RN) Decelerations: None (Rosmery Marhefka, RN) Datetime: 01/05/2017 13:00 Monitor Mode: External (Rosmery Marhefka, RN) Frequency (min): 1-2 (Rosmery Marhefka, RN) Quality: Mild/Moderate (Rosmery Marhefka, RN) Duration (sec): 50-60 (Rosmery Marhefka, RN) Resting Tone (Palpate): Relaxed (Rosmery Marhefka, RN) Monitor Mode: External US (Rosmery Marhefka, RN) FHR Baseline Rate : 150 (Rosmery Marhefka, RN) FHR Baseline Changes: No Baseline Change (Rosmery Marhefka, RN) Variability: Moderate 6-25 bpm (Rosmery Marhefka, RN) Accelerations: None (Rosmery Marhefka, RN) Decelerations: None (Rosmery Marhefka, RN) Datetime: 01/05/2017 12:45 Monitor Mode: External (Rosmery Marhefka, RN) Frequency (min): 1-1.5 (Rosmery Marhefka, RN) Quality: Mild/Moderate (Rosmery Marhefka, RN) Duration (sec): 40-70 (Rosmery Marhefka, RN) Resting Tone (Palpate): Relaxed (Rosmery Marhefka, RN) Monitor Mode: External US (Rosmery Marhefka, RN) FHR Baseline Rate : 150 (Rosmery Marhefka, RN) FHR Baseline Changes: No Baseline Change (Rosmery Marhefka, RN) Variability: Moderate 6-25 bpm (Rosmery Marhefka, RN) Accelerations: 15X15 (Rosmery Marhefka, RN) Decelerations: None (Rosmery Marhefka, RN) Datetime: 01/05/2017 12:32 I/O Interventions: Up to BR (Rosmery Nixon, RN) Datetime: 01/05/2017 12:30 Monitor Mode: External (Reena Negro RN) Frequency (min): 1-1.5 (Reena Negro RN) Quality: Mild/Moderate (Reena eNgro RN) Duration (sec): 40-60 (Reena Negro RN) Resting Tone (Palpate): Relaxed (Reena Negro RN) Monitor Mode: External US (Reena Negro RN) FHR Baseline Rate : 145 (Reena Negro, RN) Variability: Moderate 6-25 bpm (Reena Negro, RN) Accelerations: 10X10 (Reena Negro, RN) Decelerations: None (Reena Negro, RN) Pitocin (milliunit): Pitocin Increased to (milliunits) @ (Annotations: 12) (Rosmery Nixon, RN) Datetime: 01/05/2017 12:15 Monitor Mode: External (Reena Negro, RN) Frequency (min): 1-1.5 (Reena Negro, RN) Quality: Mild/Moderate (Reena Negro, RN) Duration (sec): 30-60 (Reena Negro, RN) Resting Tone (Palpate): Relaxed (Reena Negro, RN) Monitor Mode: External US (Reena Negro, RN) FHR Baseline Rate : 150 (Reena Negro, RN) Variability: Moderate 6-25 bpm (Reena Negro, RN) Accelerations: None (Reena Negro, RN) Decelerations: None (Reena Negro, RN) Datetime: 01/05/2017 12:00 Monitor Mode: External (Reena Negro, RN) Frequency (min): 1-2 (Reena Negro, RN) Quality: Mild/Moderate (Reena Negro, RN) Duration (sec): 30-60 (Reena Negro, RN) Resting Tone (Palpate): Relaxed (Reena Negro, RN) Monitor Mode: External US (Reena Negro, RN) FHR Baseline Rate : 145 (Reena Negro, RN) Variability: Moderate 6-25 bpm (Reena Negro, RN) Accelerations: 15X15 (Reena Negro, RN) Decelerations: None (Reena Negro, RN) Datetime: 01/05/2017 11:45 Monitor Mode: External (Reena Negro RN) Frequency (min): 1-2 (Reena Negro RN) Quality: Mild/Moderate (Reena Negro RN) Duration (sec): 30-60 (Reena Negro, RN) Resting Tone (Palpate): Relaxed (Reena Negro, RN) Monitor Mode: External US (Reena Negro RN) FHR Baseline Rate : 145 (Reena Negro, RN) Variability: Moderate 6-25 bpm (Reena Negro, RN) Accelerations: 15X15 (Reena Negro, RN) Decelerations: None (Reena Negro, RN) Pitocin (milliunit): Pitocin Increased to (milliunits) @ (Annotations: 10) (Elvia Quan, [facility]) Datetime: 01/05/2017 11:30 Monitor Mode: External (Reena Negro RN) Frequency (min): 1-2 (Reena Negro RN) Quality: Mild/Moderate (Reena Negro, RN) Duration (sec): 30-60 (Reena Negro, RN) Resting Tone (Palpate): Relaxed (Reena Negro, RN) Monitor Mode: External US (Reena Negro, RN) FHR Baseline Rate : 150 (Reena Negro, RN) Variability: Moderate 6-25 bpm (Reena Negro, RN) Accelerations: 15X15 (Reena Negro, RN) Decelerations: None (Reena Negro, RN) Pitocin (milliunit): Pitocin Increased to (milliunits) @ (Annotations: 8) (Elvia Quan RNC) Datetime: 01/05/2017 11:15 Monitor Mode: External (Reena Negro RN) Frequency (min): 1-3 (Reena Negro RN) Quality: Mild/Moderate (Reena Negro RN) Duration (sec): 40-60 (Reena Negro RN) Resting Tone (Palpate): Relaxed (Reena Negro RN) Monitor Mode: External US (Reena Negro RN) FHR Baseline Rate : 145 (Reena Negro RN) Variability: Moderate 6-25 bpm (Reena Negro RN) Accelerations: 15X15 (Reena Negro RN) Decelerations: None (Reena Negro RN) Pitocin (milliunit): Pitocin Increased to (milliunits) @ (Annotations: 6) (Elvia Quan, [facility]) Datetime: 01/05/2017 11:07 NBP Sys/Patricia/Mean (mmHg): 152 (QS system process) : 81 (QS system process) : 108 (QS system process) Pulse: 86 (QS system process) LaborFlag: Labor (QS system process) Datetime: 01/05/2017 11:00 Monitor Mode: External; Palpation (Elvia Kadeem, RNC) Frequency (min): 1.5-2 (Elvia Kadeem, RNC) Quality: Mild/Moderate (Elvia Kadeem, RNC) Duration (sec): 60-90 (Elvia Kadeem, RNC) Duration Criteria: Less than Two 120 Second Contractions (Elvia Kadeem, RNC) Pattern: Normal: <= 5 Contractions in 10 Minutes (Elvia Kadeem, RNC) Resting Tone (Palpate): Relaxed (Elvia Kadeem, RNC) Monitor Mode: External US (Elvia Kadeem, RNC) FHR Baseline Rate : 145 (Elvia Kadeem, RNC) Variability: Moderate 6-25 bpm (Elvia Kadeem, RNC) Accelerations: 15X15 (Elvia Kadeem, RNC) Decelerations: None (Elvia Kadeem, RNC) Pitocin (milliunit): Pitocin Increased to (milliunits) @ 4 (Elvia Kadeem, RNC) Datetime: 01/05/2017 10:45 Monitor Mode: External; Palpation (Elvia Quan RNC) Frequency (min): 1.5-2 (ROXANA Trejo) Quality: Mild (Elvia Quan RNC) Duration (sec): 60-90 (Elvia Quan, RNC) Duration Criteria: Less than Two 120 Second Contractions (Elvia Quan, RNC) Pattern: Normal: <= 5 Contractions in 10 Minutes (Elvia Quan RNC) Resting Tone (Palpate): Relaxed (Elvia Quan RNC) Monitor Mode: External US (Elvia Quan RNC) FHR Baseline Rate : 145 (Elvia Quan RNC) Variability: Moderate 6-25 bpm (Elvia Quan RNC) Accelerations: 15X15 (Elvia Quan RNC) Decelerations: None (Eliva Quan RNC) Pitocin (milliunit): Pitocin Started (milliunits) @ 2; Pitocin 20 Units in 1000ml NS (ROXANA Trejo) Antibiotics: Start Antibiotics; Ancef IV (Gm) @ 1 (Elvia Quan RNC) Datetime: 01/05/2017 10:30 Monitor Mode: External; Palpation (Elvia Quan RNC) Frequency (min): 3-5 (Elvia Quan RNC) Quality: Mild (Elvia Quan, RNC) Duration (sec): 60-90 (Elvia Quan, RNC) Duration Criteria: Less than Two 120 Second Contractions (Elvia Quan, RNC) Pattern: Normal: <= 5 Contractions in 10 Minutes (Elvia Quan RNC) Resting Tone (Palpate): Relaxed (ROXANA Trejo) Monitor Mode: External US (ROXANA Trejo) FHR Baseline Rate : 135 (ROXANA rTejo) Variability: Moderate 6-25 bpm (ROXANA Trejo) Accelerations: 15X15 (ROXANA Trejo) Decelerations: None (ROXANA Trejo) Datetime: 01/05/2017 10:04 Communication Comments: New orders received for Pitocin. (ROXNAA Trejo) Datetime: 01/05/2017 10:03 Dilatation (cm): 2.0 (ROXANA Trejo) Effacement (%): 50 (ROXANA Trejo) Station: -2 (ROXANA Trejo) Exam by: Willy ROBLES CNM (ROXANA Trejo) Vaginal Bleeding: Normal Show (ROXANA Trejo) Cervix, Position: Midposition (ROXANA Trejo) Datetime: 01/05/2017 08:55 Comments: Monitors removed from abdomen to eat breakfast and take shower. (Elvia Quan, RNC) Datetime: 01/05/2017 08:51 NBP Sys/Patricia/Mean (mmHg): 143 (QS system process) : 90 (QS system process) : 111 (QS system process) Pulse: 94 (QS system process) LaborFlag: Labor (QS system process) Datetime: 01/05/2017 08:30 Monitor Mode: External; Palpation (Elvia Quan RNC) Frequency (min): 1.5-2 (Elvia Kadeem, RNC) Quality: Mild (Elvia Kadeem, RNC) Duration (sec): 60-90 (Elvia Kadeem, RNC) Duration Criteria: Less than Two 120 Second Contractions (Elvia Kadeem, RNC) Pattern: Normal: <= 5 Contractions in 10 Minutes (Elvia Kadeem, RNC) Resting Tone (Palpate): Relaxed (Elvia Kadeem, RNC) Monitor Mode: External US (Elvia Kadeem, RNC) FHR Baseline Rate : 130 (Elvia Kadeem, RNC) Variability: Moderate 6-25 bpm (Elvia Kadeem, RNC) Accelerations: 15X15 (Elvia Kadeem, RNC) Decelerations: None (Elvia Kadeem, RNC) Datetime: 01/05/2017 08:21 NBP Sys/Patricia/Mean (mmHg): 151 (QS system process) : 96 (QS system process) : 118 (QS system process) Pulse: 92 (QS system process) LaborFlag: Labor (QS system process) Datetime: 01/05/2017 08:05 NBP Sys/Patricia/Mean (mmHg): 163 (QS system process) : 102 (QS system process) : 126 (QS system process) Pulse: 97 (QS system process) Respirations: 17 (Elvia Quan, RNC) Temperature (F): 98.0 (Elvia Quan, RNC) Temperature (C): 36.7 (QS system process) Level of Consciousness: Fully Conscious (Elvia Quan, RNC) DTR's/Clonus: DTRs 2+; No Clonus (Elvia Quan, RNC) Headache: Denies (Elvia Quan, RNC) Breath Sounds, Left: Clear and Equal (Elvia Quan, RNC) Breath Sounds, Right: Clear and Equal (Elvia Quan, RNC) Nausea/Vomiting: Denies (Elvia Quan, RNC) RUQ Epigastric Pain: Denies (Elvia Quan, RNC) LaborFlag: Labor (QS system process) Datetime: 01/05/2017 08:03 Dilatation (cm): 1.5 (Elvia Quan, RNC) Effacement (%): 50 (Elvia Quan, RNC) Station: -3 (Elvia Quan, RNC) Exam by: Dre SCHMIDT (Elvia Quan, RNC) Datetime: 01/05/2017 08:00 Monitor Mode: External; Palpation (Elvia Kadeem, RNC) Frequency (min): 1.5-2 (Elvia Kadeem, RNC) Quality: Mild (Elvia Kadeem, RNC) Duration (sec): 60-90 (Elvia Kadeem, RNC) Duration Criteria: Less than Two 120 Second Contractions (Elvia Kadeem, RNC) Pattern: Normal: <= 5 Contractions in 10 Minutes (Elvia Kadeem, RNC) Resting Tone (Palpate): Relaxed (Elvia Kadeem, RNC) Monitor Mode: External US (Elvia Kadeem, RNC) FHR Baseline Rate : 135 (Elvia Kadeem, RNC) Variability: Moderate 6-25 bpm (Elvia Kadeem, RNC) Accelerations: None (Elvia Kadeem, RNC) Decelerations: None (Elvia Kadeem, RNC) Datetime: 01/05/2017 07:30 Monitor Mode: External; Palpation (Elvia Kadeem, RNC) Frequency (min): 2.5-3 (Elvia Kadeem, RNC) Quality: Mild (Elvia Kadeem, RNC) Duration (sec): 60-120 (Elvia Kadeem, RNC) Duration Criteria: Less than Two 120 Second Contractions (Elvia Kadeem, RNC) Pattern: Normal: <= 5 Contractions in 10 Minutes (Elvia Kadeem, RNC) Resting Tone (Palpate): Relaxed (Elvia Kadeem, RNC) Monitor Mode: External US (Elvia Quan, RNC) FHR Baseline Rate : 135 (Elvia Quan, RNC) Variability: Moderate 6-25 bpm (Elvia Quan, RNC) Accelerations: 15X15 (Elvia Quan, RNC) Decelerations: None (Elvia Quan, RNC) Datetime: 01/05/2017 05:06 LaborFlag: Labor (QS system process) Datetime: 01/05/2017 04:37 LaborFlag: Labor (QS system process) Datetime: 01/05/2017 04:07 LaborFlag: Labor (QS system process) Datetime: 01/05/2017 03:37 LaborFlag: Labor (QS system process) Datetime: 01/05/2017 03:08 LaborFlag: Labor (QS system process) Datetime: 01/05/2017 02:36 LaborFlag: Labor (QS system process) Datetime: 01/05/2017 02:06 LaborFlag: Labor (QS system process) Datetime: 01/05/2017 01:36 LaborFlag: Labor (QS system process) Datetime: 01/05/2017 01:07 LaborFlag: Labor (QS system process) Datetime: 01/05/2017 00:36 LaborFlag: Labor (QS system process) Datetime: 01/05/2017 00:06 LaborFlag: Labor (QS system process) Datetime: 01/04/2017 23:36 LaborFlag: Labor (QS system process) Datetime: 01/04/2017 23:07 LaborFlag: Labor (QS system process) Datetime: 01/04/2017 22:36 LaborFlag: Labor (QS system process) Datetime: 01/04/2017 22:07 LaborFlag: Labor (QS system process) Datetime: 01/04/2017 21:36 LaborFlag: Labor (QS system process) Datetime: 01/04/2017 21:07 LaborFlag: Labor (QS system process) Datetime: 01/04/2017 20:36 LaborFlag: Labor (QS system process) Datetime: 01/04/2017 20:06 LaborFlag: Labor (QS system process) Datetime: 01/04/2017 19:36 LaborFlag: Labor (QS system process) Datetime: 01/04/2017 19:07 LaborFlag: Labor (QS system process) Datetime: 01/04/2017 18:36 LaborFlag: Labor (QS system process) Datetime: 01/04/2017 18:06 LaborFlag: Labor (QS system process) Datetime: 01/04/2017 17:36 LaborFlag: Labor (QS system process) Datetime: 01/04/2017 17:08 LaborFlag: Labor (QS system process) Datetime: 01/04/2017 16:36 LaborFlag: Labor (QS system process) Datetime: 01/04/2017 16:06 LaborFlag: Labor (QS system process) Datetime: 01/04/2017 15:36 LaborFlag: Labor (QS system process) Datetime: 01/04/2017 15:07 LaborFlag: Labor (QS system process) Datetime: 01/04/2017 14:37 LaborFlag: Labor (QS system process) Datetime: 01/04/2017 14:07 Temperature (C): 36.8 (QS system process) LaborFlag: Labor (QS system process) Datetime: 01/04/2017 13:37 LaborFlag: Labor (QS system process) Datetime: 01/04/2017 13:06 LaborFlag: Labor (QS system process) Datetime: 01/04/2017 12:36 LaborFlag: Labor (QS system process) Datetime: 01/04/2017 12:07 LaborFlag: Labor (QS system process) Datetime: 01/04/2017 11:36 LaborFlag: Labor (QS system process) Datetime: 01/04/2017 11:33 LaborFlag: Labor (QS system process) Datetime: 01/04/2017 11:06 Temperature (C): 36.8 (QS system process) LaborFlag: Labor (QS system process) Datetime: 12/31/2016 15:51 LaborFlag: Labor (QS system process) Datetime: 12/31/2016 15:36 LaborFlag: Labor (QS system process) Datetime: 12/31/2016 15:21 LaborFlag: Labor (QS system process) Datetime: 12/31/2016 15:08 LaborFlag: Labor (QS system process) Datetime: 12/31/2016 15:06 LaborFlag: Labor (QS system process) Datetime: 12/28/2016 15:06 LaborFlag: Labor (QS system process) Datetime: 12/28/2016 14:51 LaborFlag: Labor (QS system process) Datetime: 12/28/2016 14:42 LaborFlag: Labor (QS system process) Datetime: 12/28/2016 14:36 LaborFlag: Labor (QS system process) Datetime: 12/28/2016 14:21 Temperature (C): 36.6 (QS system process) LaborFlag: Labor (QS system process) Datetime: 12/07/2016 18:17 LaborFlag: Labor (QS system process) Datetime: 12/07/2016 18:11 LaborFlag: Labor (QS system process) Datetime: 12/07/2016 17:56 LaborFlag: Labor (QS system process) Datetime: 12/07/2016 17:41 LaborFlag: Labor (QS system process) Datetime: 12/07/2016 17:28 LaborFlag: Labor (QS system process) Datetime: 12/07/2016 17:26 LaborFlag: Labor (QS system process) Datetime: 12/07/2016 17:20 LaborFlag: Labor (QS system process) Datetime: 12/07/2016 17:19 Membranes Ruptured Date/Time: 01/05/2017 16:25 (ROXANA Trejo)
[2017-01-05] MEDS ORDERED: DIPHENHYDRAMINE HCL 50 MG/ML VIAL ONE (20:52)
--- NOTE | 2017-01-05 21:18 | Admission Physical ---
Datetime Report Generated by CPN: 01/05/2017 21:18 CURRENT ADMISSION Hx Assessment: The History has been Reviewed and is Current Chief Complaint: Signs/Symptoms Gestational HTN; Scheduled Induction of Labor Indication for Induction: Gest. HTN/PreEclampsia/Eclampsia Admit Plan: Admit to Unit; Initiate Labor Induction Protocol ALLERGIES Medication Allergies: Yes Medication Allergies: Penicillins (12/31/2016); erythromycin base (01/05/2017); ciprofloxacin (12/31/2016) Medication Allergies: Penicillins (12/31/2016); ciprofloxacin (12/31/2016); Erythromycins Medication Allergies: Penicillins (12/28/2016); ciprofloxacin (12/28/2016) Medication Allergies: Penicillins (12/07/2016) Medication Allergies: Penicillins (10/15/2016), all Mycins Latex: No Latex Allergies OBSTETRICAL HISTORY EDC: 01/23/2017 00:00 : 1 Para: 0 Para: 0 Term: 0 : 0 SAB: 0 IAB: 0 Ectopic: 0 Livin Cesareans: 0 VBACs: 0 Multiple Births: 0 Gestational Diabetes: Yes Rh Sensitization: No Incompetent Cervix: No PATRICIA: No Infertility: No ART Treatment: No Uterine Anomaly: No IUGR: No Hx Previous C/S: No Macrosomia: No Hx Loss/Stillborn: No PIH: No Hx : No Placenta Previa/Abruption: No Depression/PP Depression: No PTL/PROM: No Post Hemorrhage: No Current Procedures: Ultrasound; NST Obstetrical History Comments: G-1 GDM, CHTN SEE RECORDS Alcohol: No Marijuana : No Cocaine: No Other Illicit Drugs: No Cigarettes: Former Smoker. 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 H/O toxic shock syndrome age 13, hospitalized x 1 week INFECTIOUS HISTORY Gonorrhea: No Genital Herpes: No Chlamydia: No Tuberculosis: No Syphilis: No Hepatitis: No HIV/AIDS Exposure: No Rash or Viral Illness: No HPV: Yes PHYSICAL EXAM General: Normal HEENT: Normal Neurologic: Normal Thyroid: Normal Heart: Normal Lungs: Normal Breast: Deferred Back: Normal Abdomen: Normal Genitourinary Exam: Normal Extremities: Normal DTRs: Normal Pelvic Type: Adequate Physical Exam Comments: CHTN on Procardia Obesity GDM-diet controlled Vital Signs: Reviewed MEMBRANES Membranes: Intact FETUS A EGA: 37.2 Monitoring: External US FHR- Baseline: 160 Variability: Moderate 6-25bpm Accelerations: 15X15 Decelerations: None; Variable Admit Comment: Admit for IOL, Cat 1 strip, no UC's, reviewed POC, G1 Start Pitocin, monitor closely PLANS FOR LABOR AND DELIVERY Labor and Delivery: None Pain Management: Epidural Feeding Preference: Both Benefit of Breast Feed Discussed: Yes Circumcision: Yes INFORMED CONSENT Informed Consent Obtained: Vaginal Delivery; Section Delivery; Risks, Benefits and Alternatives Discussed Assignment: Ellyn Cardona MD Signature: with User ID: [email or web address] : with User ID: [email or web address]
[2017-01-05] MEDS: KETOROLAC TROMETHAMINE INJ/PF 30 MG/1 ML SDV IV SCH (22:48)
[2017-01-06] MEDS: KETOROLAC TROMETHAMINE INJ/PF 30 MG/1 ML SDV IV SCH (05:19)
[2017-01-06] MEDS: NIFEDIPINE 30 MG TAB.ER.24 PO SCH ×2 (05:32→09:44)
[2017-01-06 06:55] LABS: HEMATOCRIT 28.4 % (36.0-47.0); MEAN CORPUSCULAR HEMOGLOBIN 30.5 pg (27.0-33.4); MEAN CORPUSCULAR HGB CONC 34.4 g/dL (32.0-36.0); MEAN CORPUSCULAR VOLUME 89 fl (80-97); RED BLOOD COUNT 3.21 10^6/uL (3.72-5.28); RED CELL DISTRIBUTION WIDTH 13.8 % (11.5-14.0); WHITE BLOOD COUNT 10.8 10^3/uL (4.0-10.5)
--- NOTE | 2017-01-06 07:00 | L&D Flow Sheet ---
LD Flowsheet Datetime Report Generated by CPN: 01/06/2017 07:00 Datetime: 01/05/2017 21:10 Pulse: 80 (QS system process) SpO2 (%): 100 (QS system process) Datetime: 01/05/2017 21:05 Pulse: 76 (QS system process) SpO2 (%): 100 (QS system process) Datetime: 01/05/2017 21:00 Pulse: 77 (QS system process) SpO2 (%): 99 (QS system process) Datetime: 01/05/2017 20:55 Pulse: 73 (QS system process) SpO2 (%): 100 (QS system process) Pain Assessment Comments: 0 (Hilda Ledgerwood, RN) Datetime: 01/05/2017 20:50 Pulse: 83 (QS system process) SpO2 (%): 97 (QS system process) Datetime: 01/05/2017 20:45 Pulse: 84 (QS system process) SpO2 (%): 99 (QS system process) Datetime: 01/05/2017 20:40 Pulse: 88 (QS system process) SpO2 (%): 100 (QS system process) Datetime: 01/05/2017 20:35 Pulse: 78 (QS system process) SpO2 (%): 100 (QS system process) Datetime: 01/05/2017 20:30 Pulse: 94 (QS system process) SpO2 (%): 99 (QS system process) Datetime: 01/05/2017 20:25 Pulse: 98 (QS system process) SpO2 (%): 99 (QS system process) Datetime: 01/05/2017 20:20 Pulse: 86 (QS system process) SpO2 (%): 98 (QS system process) Datetime: 01/05/2017 20:17 Pulse: 96 (QS system process) SpO2 (%): 93 (QS system process) Datetime: 01/05/2017 20:15 Pulse: 91 (QS system process) SpO2 (%): 99 (QS system process) Datetime: 01/05/2017 20:10 Pulse: 105 (QS system process) SpO2 (%): 97 (QS system process) Datetime: 01/05/2017 20:05 Pulse: 93 (QS system process) SpO2 (%): 99 (QS system process) Datetime: 01/05/2017 20:00 Pulse: 98 (QS system process) SpO2 (%): 100 (QS system process) Datetime: 01/05/2017 19:55 Pulse: 101 (QS system process) SpO2 (%): 99 (QS system process) Datetime: 01/05/2017 19:50 Pulse: 97 (QS system process) SpO2 (%): 100 (QS system process) Datetime: 01/05/2017 19:45 Pulse: 105 (QS system process) SpO2 (%): 100 (QS system process) Datetime: 01/05/2017 19:40 Pulse: 101 (QS system process) SpO2 (%): 99 (QS system process) Datetime: 01/05/2017 19:35 Pulse: 92 (QS system process) SpO2 (%): 97 (QS system process) Datetime: 01/05/2017 19:30 Pulse: 96 (QS system process) SpO2 (%): 100 (QS system process) Datetime: 01/05/2017 19:25 Pulse: 111 (QS system process) SpO2 (%): 99 (QS system process) Datetime: 01/05/2017 19:20 Pulse: 109 (QS system process) SpO2 (%): 100 (QS system process) Datetime: 01/05/2017 19:16 NBP Sys/Patricia/Mean (mmHg): 105 (QS system process) : 63 (QS system process) : 78 (QS system process) Pulse: 89 (QS system process) Respirations: 14 (Hilda Florez RN) Datetime: 01/05/2017 19:15 Stage of : Recovery (Hilda Florez RN) Pulse: 97 (QS system process) SpO2 (%): 98 (QS system process) Temperature (F): 98.4 (Hilda Florez RN) Temperature (C): 36.9 (QS system process) Temperature Route: Oral (Hilda Florez RN) Pain Scale: 0 (Hilda Florez RN)
[2017-01-06 07:02] LABS: HEMOGLOBIN 9.8 g/dL (12.0-15.5)
[2017-01-06] MEDS: PRENATAL VITAMIN W-O CA NO5/FE FUMARATE/FA CAPSULE PO SCH (09:43)
[2017-01-06] MEDS: DOCUSATE SODIUM 100 MG CAPSULE PO SCH ×2 (09:44→17:47)
--- NOTE | 2017-01-06 11:10 | PDOC PROGRESS REPORT ---
Subjective-OB Subjective: Post Delivery Day: 27 year old. Denies any needs at this time. Denies any [place] or visual changes. Physical Exam (OB) Vital Signs: Temp Pulse Resp BP Pulse Ox 97.5 F 91 17 142/97 H 99 01/06/17 08:07 01/06/17 08:07 01/06/17 08:07 01/06/17 08:07 01/06/17 08:07 Intake & Output 01/05/17 01/06/17 01/07/17 06:59 06:59 06:59 Output Total 1500 Balance -1500 Weight 179533 kg 113 kg - PIH/Pre-Eclampsia Clonus: Negative Headache: Absent Epigastric Pain: No Visual Changes: No - Dressing Removed: No Incision: Dressing Closure Type: opsite - Lochia Lochia Amount: Scant < 10 ml Lochia Color: Rubra/Red - Abdomen Description: Soft, Round Hernia Present: No Bowel Sounds: Normoactive Flatus Presence: Absent Stool: No Fundal Description: Firm, Midline Fundal Height: u/u - u/2 Objective-Diagnostic Laboratory: 01/06/17 06:40 01/04/17 10:58 01/06/17 06:40 WBC 10.8 H RBC 3.21 L Hgb 9.8 L D Hct 28.4 L MCV 89 MCH 30.5 MCHC 34.4 RDW 13.8 Plt Count 189
[2017-01-06] MEDS ORDERED: IBUPROFEN 800 MG TABLET PO ONE (14:30)
[2017-01-06] MEDS: IBUPROFEN 800 MG TABLET PO SCH (17:47)
--- NOTE | 2017-01-06 18:00 | L&D General Admission ---
General Admit Datetime Report Generated by CPN: 01/06/2017 18:00 INFORMATION Patient Age: 26 (11/30/2016 10:00:QS system process) EDC: 01/23/2017 00:00 (12/07/2016 17:19:Rosmery Nixon RN) : 1 (12/07/2016 17:19:ROXANA Dominguez) Para: 0 (12/07/2016 19:20:Reena Negro RN) Term: 0 (12/07/2016 17:19:ROXANA Dominguez) : 0 (12/07/2016 17:19:ROXANA Dominguez) Spontaneous Abortions: 0 (12/07/2016 17:19:ROXANA Dominguez) Induced Abortions: 0 (12/07/2016 17:19:ROXANA Dominguez) Livin (12/07/2016 17:19:ROXANA Dominguez) Cesareans: 0 (12/07/2016 17:19:ROXANA Dominguez) VBACs: 0 (12/07/2016 17:19:Aye Martinez RNC) Ectopic: 0 (12/07/2016 17:19:Aye [place], [facility]) Multiple Births: 0 (12/07/2016 17:19:Aye [place], [facility]) Baby, Number in Womb: 1 (12/07/2016 19:20:Aye Martinez, [facility]) CARE [facility] (12/07/2016 17:19:Aye Martinez [facility]) Month of 1st Visit: May (12/07/2016 17:19:Aye Martinez, [facility]) Adequate Care: Yes (12/07/2016 17:19:Aye Martinez, [facility]) Prepregnancy Weight (lb): 228 (12/07/2016 17:19:Aye Martinez [facility]) Prepregnancy Weight (kg): 103.6 (12/07/2016 17:19:QS system process) Height (in): 68 (01/06/2017 08:36:QS system process) ALLERGIES Medication Allergy: Yes (12/07/2016 17:19:Aye Martinez RNC) Medication Allergies: Penicillins (12/31/2016); ciprofloxacin (12/31/2016); Erythromycins (12/31/2016 14:52:Madison Thomason RN) Latex Allergy: No Latex Allergies (12/07/2016 17:19:Aye Martinez RN) COMMUNICATION Primary Language: Ecuadorean (12/07/2016 17:19:ROXANA Dominguez) Medical Tx Preferred Language: Ecuadorean (12/07/2016 17:19:ROXANA Dominguez) Communication Barrier(s): None (12/07/2016 17:19:ROXANA Dominguez) DEMOGRAPHICS Address: [address] [place] [id number] (11/30/2016 10:00:QS system process) Zipcode: [id number] (11/30/2016 10:00:QS system process) Home (11/30/2016 10:00:QS system process) Work (11/30/2016 10:00:QS system process) N: [phone] (11/30/2016 10:00:QS system process) Next of Kin Name: CRISELDA GONZALEZ (11/30/2016 10:00:QS system process) Next of Kin (11/30/2016 10:00:QS system process) Next of Kin Relationship: [place] (11/30/2016 10:00:QS system process) Date of : 1990 (11/30/2016 10:00:QS system process) Marital Status: Single (11/30/2016 10:00:QS system process) Sex: Female (11/30/2016 10:00:QS system process) Occupation: Other (12/07/2016 17:19:ROXANA Dominguez) Occupation- Other : Hairstylist (12/07/2016 17:19:ROXANA Dominguez) Race: (11/30/2016 10:00:QS system process) Ethnicity: Non- or (11/30/2016 10:00:QS system process) Uatsdin: None (11/30/2016 10:00:QS system process) Education: 12 (12/07/2016 17:19:ROXANA Dominguez) FOB Involved: Yes (12/07/2016 17:19:ROXANA Dominguez) Father of Baby Name: Criselda Gonzalez (12/07/2016 17:19:ROXANA Dominguez) DRUG AND ALCOHOL USE Alcohol: No (12/07/2016 17:19:ROXANA Dominguez) Cigarettes: Former Smoker. [id number] (12/07/2016 17:19:ROXANA Dominguez) Marijuana: No (12/07/2016 17:19:Aye Camp, RNC) Cocaine: No (12/07/2016 17:19:Aye Camp, RNC) Other Illicit Drugs: No (12/07/2016 17:19:Aye Camp, RNC) VACCINE HISTORY Influenza Vaccine: No (12/07/2016 17:19:Aye Camp, RN) Pneumococcal Vaccine: No (12/07/2016 17:19:Aye Camp, RN) Tetanus Vaccine: Yes (12/07/2016 17:19:Aye Camp, RN) Tetanus Date: 11-10-2016 (12/07/2016 17:19:Aye Camp, RN) Tdap Vaccine: Yes (12/07/2016 17:19:Aye Camp, RNC) Tdap Date: 11-10-2016 (12/07/2016 17:19:Aye Camp, RNC) Hepatitis B Vaccine: Uncertain (12/07/2016 17:19:Aye [place], [facility]) 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[employer] (12/07/2016 17:19:Shikha Bellavance, [facility]) Feeding Preference: Both (12/07/2016 17:19:ROXANA Dominguez) Benefit of Breast Feed Discussed: Yes (12/07/2016 17:19:ROXANA Dominguez) Circumcision: Yes (12/07/2016 17:19:ROXANA Dominguez) Classes Attended: No (12/07/2016 17:19:ROXANA Dominguez) Tubal Ligation: No (12/07/2016 17:19:ROXANA Dominguez) Tubal Authorization Signed: N/A (12/07/2016 17:19:ROXANA Dominguez) Consent: N/A (12/07/2016 17:19:ROXANA Dominguez) Consent Signed: N/A (12/07/2016 17:19:ROXANA Dominguez) Pain Management Plans: Epidural (12/07/2016 17:19:ROXANA Dominguez) Plans for Labor and Delivery: None (12/07/2016 17:19:ROXANA Dominguez) Support Person: Criselda Gonzalez (12/07/2016 17:19:ROXANA Dominguez) Support Person Relationship: Significant Other (12/07/2016 17:19:ROXANA Dominguez) Cultural/Spritual Practice: No (12/07/2016 17:19:ROXANA Dominguez) Spir/Cult Dietary Needs: No (12/07/2016 17:19:ROXANA Dominguez) LIVING SITUATION/DISCHARGE PLAN Living Arrangements: House (12/07/2016 17:19:ROXANA Dominguez) Adequate Access to:: Electric; Heat; Refrigeration; Plumbing/Running water; Phone; Transportation (12/07/2016 17:19:ROXANA Dominguez) WIC Program: Needs referral (12/07/2016 17:19:ROXANA Dominguez) Discharge Office Services Clerk Person: Criselda Sandovaldle (12/07/2016 17:19:ROXANA Dominguez) Person to Help after Discharge: Criselda Gonzalez (12/07/2016 17:19:ROXANA Dominguez) Currently Using Commun Resources: No (12/07/2016 17:19:ROXANA Dominguez) Outside Agency/Code Enforcement Inspector: No (12/07/2016 17:19:ROXANA Dominguez) Car Seat for Discharge: Yes (12/07/2016 17:19:ROXANA Dominguez) Adoption Requested: No (12/07/2016 17:19:ROXANA Dominguez) Pt Contact w/infant Post : N/A (12/07/2016 17:19:ROXANA Dominguez) LABS Blood Type: A Positive (12/07/2016 17:19:ROXANA Dominguez) Antibody Screen: negative (12/07/2016 17:19:ROXANA Dominguez) Hemoglobin: 9.8 L (01/06/2017 06:40:QS system process) Hematocrit: 28.4 L (01/06/2017 06:40:QS system process) MCV: 89 (01/06/2017 06:40:QS system process) Group Beta Strep: Positive (12/28/2016 14:55:Madison Thomason RN) Gonorrhea: Negative (12/07/2016 17:19:ROXANA Dominguez) Chlamydia: Negative (12/07/2016 17:19:ROXANA Dominguez) RPR/VDRL: Nonreactive (12/07/2016 17:19:ROXANA Dominguez) HIV Results: negative (12/07/2016 17:19:ROXANA Dominguez) Hepatitis B: Negative (12/07/2016 17:19:ROXANA Dominguez) Rubella: Non-Immune (12/07/2016 17:19:ROXANA Dominguez) OB/PREVIOUS HISTORY Previous Procedures: None (12/07/2016 17:19:ROXANA Dominguez) Current Procedures: Ultrasound; NST (12/07/2016 17:19:ROXANA Dominguez) History of Previous : No (12/07/2016 17:19:ROXANA Dominguez) History of Gestational Diabetes: Yes (12/07/2016 17:19:ROXANA Dominguez) History of PIH: No (12/07/2016 17:19:ROXANA Dominguez) History of Incompetent Cervix: No (12/07/2016 17:19:ROXANA Dominguez) History of Placenta Previa/Abrup: No (12/07/2016 17:19:ROXANA Dominguez) History of Macrosomia: No (12/07/2016 17:19:ROXANA Dominguez) History of IUGR: No (12/07/2016 17:19:ROXANA Dominguez) History of Hemorrhage: No (12/07/2016 17:19:ROXANA Dominguez) History of Loss/Stillborn: No (12/07/2016 17:19:ROXANA Dominguez) History of : No (12/07/2016 17:19:ROXANA Dominguez) History of D (Rh) Sensitization: No (12/07/2016 17:19:ROXANA Dominguez) History Recurrent Loss/Stillborn: No (12/07/2016 17:19:ROXANA Dominguez) History Depression/PP Depression: No (12/07/2016 17:19:ROXANA Dominguez) History of Uterine Anomaly/PATRICIA: No (12/07/2016 17:19:ROXANA Dominguez) History of Infertility: No (12/07/2016 17:19:ROXANA Dominguez) History of ART Treatment: No (12/07/2016 17:19:ROXANA Dominguez) History of PATRICIA: No (12/07/2016 17:19:ROXANA Dominguez) Comments Obstetrical History: G-1 GDM, CHTN (12/07/2016 17:19:ROXANA Dominguez) MEDICAL HISTORY Med Hx Diabetes: Yes (12/07/2016 17:19:ROXANA Dominguez) Diabetes Type: Gestational Diabetes (12/07/2016 17:19:ROXANA Dominguez) Med Hx Hypertension: Yes (12/07/2016 17:19:ROXANA Dominguez) Med Hx Heart Disease: No (12/07/2016 17:19:ROXANA Dominguez) Med Hx Autoimmune Disorder: No (12/07/2016 17:19:ROXANA Dominguez) Med Hx Kidney Disease/UTI: No (12/07/2016 17:19:ROXANA Dominguez) Med Hx Neurologic/Epilepsy: No (12/07/2016 17:19:Aye Martinez RNC) Med Hx Psychiatric Disorders: No (12/07/2016 17:19:Aye Martinez RNC) Med Hx Hepatitis/Liver Disease: No (12/07/2016 17:19:Aye Martinez RNC) Med Hx Varicosities/Phlebitis: No (12/07/2016 17:19:Aye Martinez RNC) Med Hx Thyroid Dysfunction: No (12/07/2016 17:19:Aye Martinez RNC) Med Hx Trauma/Violence: No (12/07/2016 17:19:Aye Martinez RNC) Med Hx Blood Transfusion: No (12/07/2016 17:19:Aye Martinez RNC) Med Hx Pulmonary (Asthma,TB): No (12/07/2016 17:19:Aye Martinez RNC) Med Hx Breast: No (12/07/2016 17:19:Aye Martinez RNC) Med Hx CLIENT CARE SPECIALIST Surgery: No (12/07/2016 17:19:ROXANA Dominguez) Med Hx Hospitalization/Surgery: Yes (12/07/2016 17:19:Aye Martinez RNC) Med Hx Anesthetic Complications: No (12/07/2016 17:19:Aye Martinez RNC) Med Hx Abnormal Pap Smear: Yes (12/07/2016 17:19:Aye Martinez RNC) Other Medical Diseases: No (12/07/2016 17:19:Aye Martinez RNC) Med Hx Significant Family Hx: No (12/07/2016 17:19:Aye Martinez RNC) Details of Med/Surg Hx: Tonsillectomy, wisdom teeth. H/O toxic shock syndrome age 13, hospitalized x 1 week (12/07/2016 17:19:Madison Thomason RN) INFECTIOUS HISTORY Inf Hx Gonorrhea: No (12/07/2016 17:19:[facility]) Inf Hx Chlamydia: No (12/07/2016 17:19:[facility]) Inf Hx Syphilis: No (12/07/2016 17:19:[facility]) Inf Hx HIV/AIDS: No (12/07/2016 17:19:[facility]) Inf Hx Human Papilloma Virus: Yes (12/07/2016 17:19:[facility]) Inf Hx Pt/Partner Genital Herpes: No (12/07/2016 17:19:[facility]) Inf Hx Tuberculosis/Exposure: No (12/07/2016 17:19:[facility]) Inf Hx Hepatitis B,C: No (12/07/2016 17:19:[facility]) Inf Hx Rash or Viral Illness: No (12/07/2016 17:19:[facility]) GENETIC HISTORY Gen Hx Age >=35 at MICHAEL: No (12/07/2016 17:19:[facility]) Gen Hx Thalassemia: [facility] Hx Congenital Heart Defect: No (12/07/2016 17:19:[facility]) Gen Hx Neural Tube Defect: No (12/07/2016 17:19:[facility]) Gen Hx Down's Syndrome: No [facility] Gen Hx Fazal-Sachs: No (12/07/2016 17:19:Aye Martinez RN) Gen Hx Tennille: No (12/07/2016 17:19:Aye Martinez RN) Gen Hx Familial Dysautonomia: No (12/07/2016 17:19:Aye Martinez RN) Gen Hx Sickle Cell Disease/Trait: No (12/07/2016 17:19:Aye Martinez RN) Gen Hx Hemophilia/Blood Disorder: No (12/07/2016 17:19:Aye Martinez RN) Gen Hx Muscular Dystrophy: No (12/07/2016 17:19:Aye Martinez RN) Gen Hx Cystic Fibrosis: No (12/07/2016 17:19:Aye Martinez RN) Gen Hx Huntingtons Chorea: No (12/07/2016 17:19:Aye Martinez [facility]) Gen Hx Mental Retardation/Autism: No (12/07/2016 17:19:Aye Martinez RN) Gen Hx Tested for Fragile X: No (12/07/2016 17:19:ROXANA Dominguez) Gen Hx Other Inher/Chromosomal: No (12/07/2016 17:19:ROXANA Dominguez) Gen Hx Maternal Metabolic DO: No (12/07/2016 17:19:ROXANA Dominguez) Gen Hx Pt Father or FOB Defect: No (12/07/2016 17:19:ROXANA Dominguez) Gen Hx Other Genetic History: No (12/07/2016 17:19:ROXANA Dominguez) Gen Hx Drugs/Meds since LMP: No (12/07/2016 17:19:ROXANA Dominguez)
--- NOTE | 2017-01-06 18:00 | L&D Current Admission ---
Current Admit Datetime Report Generated by CPN: 01/06/2017 18:00 ADMISSION INFORMATION Current Admit Date/Time: 01/04/2017 11:16 (01/04/2017 11:15:ROXANA Kingsley) Reason for Admission: Induction of Labor (01/04/2017 11:15:ROXANA Kingsley) Chief Complaint: Scheduled Induction of Labor (01/04/2017 11:15:ROXANA Kingsley) EGA per Dates: 37.2 (01/04/2017 11:15:QS system process) Method of Arrival: Ambulatory (01/04/2017 11:15:ROXANA Kingsley) Admitted From: Home (01/04/2017 11:15:ROXANA Kingsley) Reason for Induction: Not Applicable (01/04/2017 11:15:ROXANA Kingsley) Records Available: Yes (01/04/2017 11:15:ROXANA Kingsley) General Admission Information: Reviewed (01/04/2017 11:15:ROXANA Kingsley) General Admission Reviewed By: Albertina SCHMIDT (01/04/2017 11:15:ROXANA Kingsley) BELONGINGS/ADVANCED DIRECTIVES Valuables/Personal Effects: None (01/04/2017 11:15:ROXANA Kingsley) Disposition of Belongings: Kept with Patient (01/04/2017 11:15:ROXANA Kingsley) Advance Direct for Healthcare: No, and Wants No Information (01/04/2017 11:15:ROXANA Kingsley) Durable Power of Drafter Directional Survey: No (01/04/2017 11:15:ROXANA Kingsley) Living Will: No (01/04/2017 11:15:ROXANA Kingsley) Organ Donor: No (01/04/2017 11:15:ROXANA Kingsley) Pt Rights Information Given: Yes (01/04/2017 11:15:ROXANA Kingsley) Pt Understands Pt Rights: Yes (01/04/2017 11:15:ROXANA Kingsley) LEARNING ASSESSMENT Knowledge Level: Understands L_D Process; Understands Care Activities; Had Pre-Hospital Education; Understands Diagnosis (01/04/2017 11:15:ROXANA iKngsley) Barriers to Learning: None (01/04/2017 11:15:ROXANA Kingsley) Learning Readiness: Motivated (01/04/2017 11:15:ROXANA Kingsley) Learns Best By: 1 to 1 Instruction; Reading; Videos; Group Discussion; Demonstration (01/04/2017 11:15:ROXANA Kingsley) Learning Needs: Labor and Delivery Process; Pain Management; Symptoms to Report; Treatment Plan; Medication; Diagnosis; Nutrition; Equipment; Infant Care; Community Resources (01/04/2017 11:15:ROXANA Kingsley) DOMESTIC VIOLANCE SCREENING Dom Viol Threatened/Hurt: No (01/04/2017 11:15:ROXANA Kingsley) Hx of Abuse/Neglect past 2yrs: No (01/04/2017 11:15:ROXANA Kingsley) Feel Unsafe Going Home: No (01/04/2017 11:15:ROXANA Kingsley) Addt'l Observ Indicating Abuse: No (01/04/2017 11:15:ROXANA Kingsley) Reason Unable to Complete Screen: N/A, Screen Completed (01/04/2017 11:15:ROXANA Kingsley) Considered Personal Harm/Suicide: No (01/04/2017 11:15:ROXANA Kingsley) NUTRITIONAL/FUNCTIONAL SCREENING Problem with Appetite >5 Days: No (01/04/2017 11:15:ROXANA Kingsley) Chew/Swallow Difficulties: No (01/04/2017 11:15:ROXANA Kingsley) Inappropriate Wt Gain/Loss: No (01/04/2017 11:15:ROXANA Kingsley) Presence Skin Breakdown/Ulcer: No (01/04/2017 11:15:ROXANA Kingsley) Special Diet: No (01/04/2017 11:15:ROXANA Kingsley) Pt Requests Airplane Woodworker Visit: Ayla (01/04/2017 11:15:ROXANA Kingsley) Hx of Any of the Following?: N/A (01/04/2017 11:15:ROXANA Kingsley) New Diagnosis of: N/A (01/04/2017 11:15:ROXANA Kingsley) Requires Assist w/Ambulation: Ayla (01/04/2017 11:15:ROXANA Kingsley) Uses Assist Device to Ambulate: Ayla (01/04/2017 11:15:ROXANA Kingsley) Pt Requires Help w/ADL's: No (01/04/2017 11:15:ROXANA Kingsley)
[2017-01-07] MEDS: IBUPROFEN 800 MG TABLET PO SCH ×3 (00:03→12:01)
--- NOTE | 2017-01-07 06:00 | L&D Current Admission ---
Current Admit Datetime Report Generated by CPN: 01/07/2017 06:00 ADMISSION INFORMATION Current Admit Date/Time: 01/04/2017 11:16 (01/04/2017 11:15:ROXANA Kingsley) Reason for Admission: Induction of Labor (01/04/2017 11:15:ROXANA Kingsley) Chief Complaint: Scheduled Induction of Labor (01/04/2017 11:15:ROXANA Kingsley) EGA per Dates: 37.2 (01/04/2017 11:15:QS system process) Method of Arrival: Ambulatory (01/04/2017 11:15:ROXANA Kingsley) Admitted From: Home (01/04/2017 11:15:ROXANA Kingsley) Reason for Induction: Not Applicable (01/04/2017 11:15:ROXANA Kingsley) Records Available: Yes (01/04/2017 11:15:ROXANA Kingsley) General Admission Information: Reviewed (01/04/2017 11:15:ROXANA Kingsley) General Admission Reviewed By: Albertina SCHMIDT (01/04/2017 11:15:ROXANA Kingsley) BELONGINGS/ADVANCED DIRECTIVES Valuables/Personal Effects: None (01/04/2017 11:15:ROXANA Kingsley) Disposition of Belongings: Kept with Patient (01/04/2017 11:15:ROXANA Kingsley) Advance Direct for Healthcare: No, and Wants No Information (01/04/2017 11:15:ROXANA Kingsley) Durable Power of Activity Assistant: No (01/04/2017 11:15:ROXANA Kingsley) Living Will: No (01/04/2017 11:15:ROXANA Kingsley) Organ Donor: No (01/04/2017 11:15:ROXANA Kingsley) Pt Rights Information Given: Yes (01/04/2017 11:15:ROXANA Kingsley) Pt Understands Pt Rights: Yes (01/04/2017 11:15:ROXANA Kingsley) LEARNING ASSESSMENT Knowledge Level: Understands L_D Process; Understands Care Activities; Had Pre-Hospital Education; Understands Diagnosis (01/04/2017 11:15:ROXANA Kingsley) Barriers to Learning: None (01/04/2017 11:15:ROXANA Kingsley) Learning Readiness: Motivated (01/04/2017 11:15:ROXANA Kingsley) Learns Best By: 1 to 1 Instruction; Reading; Videos; Group Discussion; Demonstration (01/04/2017 11:15:ROXANA Kingsley) Learning Needs: Labor and Delivery Process; Pain Management; Symptoms to Report; Treatment Plan; Medication; Diagnosis; Nutrition; Equipment; Infant Care; Community Resources (01/04/2017 11:15:ROXANA Kingsley) DOMESTIC VIOLANCE SCREENING Dom Viol Threatened/Hurt: No (01/04/2017 11:15:ROXANA Kingsley) Hx of Abuse/Neglect past 2yrs: No (01/04/2017 11:15:ROXANA Kingsley) Feel Unsafe Going Home: No (01/04/2017 11:15:ROXANA Kingsley) Addt'l Observ Indicating Abuse: No (01/04/2017 11:15:ROXANA Kingsley) Reason Unable to Complete Screen: N/A, Screen Completed (01/04/2017 11:15:ROXANA Kingsley) Considered Personal Harm/Suicide: No (01/04/2017 11:15:ROXANA Kingsley) NUTRITIONAL/FUNCTIONAL SCREENING Problem with Appetite >5 Days: No (01/04/2017 11:15:ROXANA Kingsley) Chew/Swallow Difficulties: No (01/04/2017 11:15:ROXANA Kingsley) Inappropriate Wt Gain/Loss: No (01/04/2017 11:15:ROXANA Kingsley) Presence Skin Breakdown/Ulcer: No (01/04/2017 11:15:ROXANA Kingsley) Special Diet: No (01/04/2017 11:15:ROXANA Kingsley) Pt Requests Authorization Representative Visit: Ayla (01/04/2017 11:15:ROXANA Kingsley) Hx of Any of the Following?: N/A (01/04/2017 11:15:ROXANA Kingsley) New Diagnosis of: N/A (01/04/2017 11:15:ROXANA Kingsley) Requires Assist w/Ambulation: Ayla (01/04/2017 11:15:ROXANA Kingsley) Uses Assist Device to Ambulate: Ayla (01/04/2017 11:15:ROXANA Kingsley) Pt Requires Help w/ADL's: No (01/04/2017 11:15:ROXANA Kingsley)
--- NOTE | 2017-01-07 06:00 | L&D General Admission ---
General Admit Datetime Report Generated by CPN: 01/07/2017 06:00 INFORMATION Patient Age: 26 (11/30/2016 10:00:QS system process) EDC: 01/23/2017 00:00 (12/07/2016 17:19:Rosmery Nixon RN) : 1 (12/07/2016 17:19:ROAXNA Dominguez) Para: 0 (12/07/2016 19:20:Reena Negro RN) Term: 0 (12/07/2016 17:19:ROXANA Dominguez) : 0 (12/07/2016 17:19:ROXANA Dominguez) Spontaneous Abortions: 0 (12/07/2016 17:19:ROXANA Dominguez) Induced Abortions: 0 (12/07/2016 17:19:ROXANA Dominguez) Livin (12/07/2016 17:19:ROXANA Dominguez) Cesareans: 0 (12/07/2016 17:19:ROXANA Dominguez) VBACs: 0 (12/07/2016 17:19:Aye Martinez RNC) Ectopic: 0 (12/07/2016 17:19:Aye [place], [facility]) Multiple Births: 0 (12/07/2016 17:19:Aye [place], [facility]) Baby, Number in Womb: 1 (12/07/2016 19:20:Aye Martinez, [facility]) CARE Primary Animal Cruelty Investigation Supervisor: [email or web address] (12/07/2016 17:19:Aye Martinez [facility]) Month of 1st Visit: May (12/07/2016 17:19:Aye Martinez, [facility]) Adequate Care: Yes (12/07/2016 17:19:Aye Martinez, [facility]) Prepregnancy Weight (lb): 228 (12/07/2016 17:19:Aye Martinez [facility]) Prepregnancy Weight (kg): 103.6 (12/07/2016 17:19:QS system process) Height (in): 68 (01/06/2017 08:36:QS system process) ALLERGIES Medication Allergy: Yes (12/07/2016 17:19:Aye Martinez RNC) Medication Allergies: Penicillins (12/31/2016); ciprofloxacin (12/31/2016); Erythromycins (12/31/2016 14:52:Madison Thomason RN) Latex Allergy: No Latex Allergies (12/07/2016 17:19:Aye Martinez RN) COMMUNICATION Primary Language: Zambian (12/07/2016 17:19:ROXANA Dominguez) Medical Tx Preferred Language: Zambian (12/07/2016 17:19:ROXANA Dominguez) Communication Barrier(s): None (12/07/2016 17:19:ROXANA Dominguez) DEMOGRAPHICS Address: [address] [place] [id number] (11/30/2016 10:00:QS system process) Zipcode: [address] (11/30/2016 10:00:QS system process) Home (11/30/2016 10:00:QS system process) Work (11/30/2016 10:00:QS system process) N: [phone] (11/30/2016 10:00:QS system process) Next of Kin Name: CRISELDA GONZALEZ (11/30/2016 10:00:QS system process) Next of Kin (11/30/2016 10:00:QS system process) Next of Kin Relationship: OR (11/30/2016 10:00:QS system process) Date of : 1990 (11/30/2016 10:00:QS system process) Marital Status: Single (11/30/2016 10:00:QS system process) Sex: Female (11/30/2016 10:00:QS system process) Occupation: Other (12/07/2016 17:19:ROXANA Dominguez) Occupation- Other : Hairstylist (12/07/2016 17:19:ROXANA Dominguez) Race: (11/30/2016 10:00:QS system process) Ethnicity: Non- or (11/30/2016 10:00:QS system process) Orthodoxy: None (11/30/2016 10:00:QS system process) Education: 12 (12/07/2016 17:19:ROXANA Dominguez) FOB Involved: Yes (12/07/2016 17:19:ROXANA Dominguez) Father of Baby Name: Criselda Gonzalez (12/07/2016 17:19:ROXANA Dominguez) DRUG AND ALCOHOL USE Alcohol: No (12/07/2016 17:19:ROXANA Dominguez) Cigarettes: Former Smoker. [id number] (12/07/2016 17:19:ROXANA Dominguez) Marijuana: No (12/07/2016 17:19:Aye Camp, RNC) Cocaine: No (12/07/2016 17:19:Aye Camp, RNC) Other Illicit Drugs: No (12/07/2016 17:19:Aye Camp, RNC) VACCINE HISTORY Influenza Vaccine: No (12/07/2016 17:19:Aye Camp, RN) Pneumococcal Vaccine: No (12/07/2016 17:19:Aye Camp, RN) Tetanus Vaccine: Yes (12/07/2016 17:19:Aye Camp, RN) Tetanus Date: 11-10-2016 (12/07/2016 17:19:Aye Camp, RN) Tdap Vaccine: Yes (12/07/2016 17:19:Aye Camp, RNC) Tdap Date: 11-10-2016 (12/07/2016 17:19:Aye Camp, RNC) Hepatitis B Vaccine: Uncertain (12/07/2016 17:19:Aye Camp, [facility]) Power Line Lineman: [facility] (12/07/2016 17:19:Shikha Bellavance, [facility]) Feeding Preference: Both (12/07/2016 17:19:ROXANA Dominguez) Benefit of Breast Feed Discussed: Yes (12/07/2016 17:19:ROXANA Dominguez) Circumcision: Yes (12/07/2016 17:19:ROXANA Dominguez) Classes Attended: No (12/07/2016 17:19:ROXANA Dominguez) Tubal Ligation: No (12/07/2016 17:19:ROXANA Dominguez) Tubal Authorization Signed: N/A (12/07/2016 17:19:ROXANA Dominguez) Consent: N/A (12/07/2016 17:19:ROXANA Dominguez) Consent Signed: N/A (12/07/2016 17:19:ROXANA Dominguez) Pain Management Plans: Epidural (12/07/2016 17:19:ROXANA Dominguez) Plans for Labor and Delivery: None (12/07/2016 17:19:ROXANA Dominguez) Support Person: Criselda Gonzalez (12/07/2016 17:19:ROXANA Dominguez) Support Person Relationship: Significant Other (12/07/2016 17:19:ROXANA Dominguez) Cultural/Spritual Practice: No (12/07/2016 17:19:ROXANA Dominguez) Spir/Cult Dietary Needs: No (12/07/2016 17:19:ROXANA Dominguez) LIVING SITUATION/DISCHARGE PLAN Living Arrangements: House (12/07/2016 17:19:ROXANA Dominguez) Adequate Access to:: Electric; Heat; Refrigeration; Plumbing/Running water; Phone; Transportation (12/07/2016 17:19:ROXANA Dominguez) WIC Program: Needs referral (12/07/2016 17:19:ROXANA Dominguez) Discharge Recycling Director Person: Criselda Sandovaldle (12/07/2016 17:19:ROXANA Dominguez) Person to Help after Discharge: Criselda Gonzalez (12/07/2016 17:19:ROXANA Dominguez) Currently Using Commun Resources: No (12/07/2016 17:19:ROXANA Dominguez) Outside Agency/Slice Cutting Machine Operator: No (12/07/2016 17:19:ROXANA Dominguez) Car Seat for Discharge: Yes (12/07/2016 17:19:ROXANA Dominguez) Adoption Requested: No (12/07/2016 17:19:ROXANA Dominguez) Pt Contact w/infant Post : N/A (12/07/2016 17:19:ROXANA Dominguez) LABS Blood Type: A Positive (12/07/2016 17:19:ROXANA Dominguez) Antibody Screen: negative (12/07/2016 17:19:ROXANA Dominguez) Hemoglobin: 9.8 L (01/06/2017 06:40:QS system process) Hematocrit: 28.4 L (01/06/2017 06:40:QS system process) MCV: 89 (01/06/2017 06:40:QS system process) Group Beta Strep: Positive (12/28/2016 14:55:Madison Thomason RN) Gonorrhea: Negative (12/07/2016 17:19:ROXANA Dominguez) Chlamydia: Negative (12/07/2016 17:19:ROXANA Dominguez) RPR/VDRL: Nonreactive (12/07/2016 17:19:ROXANA Dominguez) HIV Results: negative (12/07/2016 17:19:ROXANA Dominguez) Hepatitis B: Negative (12/07/2016 17:19:ROXANA Dominguez) Rubella: Non-Immune (12/07/2016 17:19:ROXANA Dominguez) OB/PREVIOUS HISTORY Previous Procedures: None (12/07/2016 17:19:ROXANA Dominguez) Current Procedures: Ultrasound; NST (12/07/2016 17:19:ROXANA Dominguez) History of Previous : No (12/07/2016 17:19:ROXANA Dominguez) History of Gestational Diabetes: Yes (12/07/2016 17:19:ROXANA Dominguez) History of PIH: No (12/07/2016 17:19:ROXANA Dominguez) History of Incompetent Cervix: No (12/07/2016 17:19:ROXANA Dominguez) History of Placenta Previa/Abrup: No (12/07/2016 17:19:ROXANA Dominguez) History of Macrosomia: No (12/07/2016 17:19:ROXANA Dominguez) History of IUGR: No (12/07/2016 17:19:ROXANA Dominguez) History of Hemorrhage: No (12/07/2016 17:19:ROXANA Dominguez) History of Loss/Stillborn: No (12/07/2016 17:19:ROXANA Dominguez) History of : No (12/07/2016 17:19:ROXANA Dominguez) History of D (Rh) Sensitization: No (12/07/2016 17:19:ROXANA Dominguez) History Recurrent Loss/Stillborn: No (12/07/2016 17:19:ROXANA Dominguez) History Depression/PP Depression: No (12/07/2016 17:19:ROXANA Dominguez) History of Uterine Anomaly/PATRICIA: No (12/07/2016 17:19:ROXANA Dominguez) History of Infertility: No (12/07/2016 17:19:ROXANA Dominguez) History of ART Treatment: No (12/07/2016 17:19:ROXANA Dominguez) History of PATRICIA: No (12/07/2016 17:19:ROXANA Dominguez) Comments Obstetrical History: G-1 GDM, CHTN (12/07/2016 17:19:ROXANA Dominguez) MEDICAL HISTORY Med Hx Diabetes: Yes (12/07/2016 17:19:ROXANA Dominguez) Diabetes Type: Gestational Diabetes (12/07/2016 17:19:ROXANA Dominguez) Med Hx Hypertension: Yes (12/07/2016 17:19:ROXANA Dominguez) Med Hx Heart Disease: No (12/07/2016 17:19:ROXANA Dominguez) Med Hx Autoimmune Disorder: No (12/07/2016 17:19:ROXANA Dominguez) Med Hx Kidney Disease/UTI: No (12/07/2016 17:19:ROXANA Dominguez) Med Hx Neurologic/Epilepsy: No (12/07/2016 17:19:Aye Martinez RNC) Med Hx Psychiatric Disorders: No (12/07/2016 17:19:Aye Martinez RNC) Med Hx Hepatitis/Liver Disease: No (12/07/2016 17:19:Aye Martinez RNC) Med Hx Varicosities/Phlebitis: No (12/07/2016 17:19:Aye Martinez RNC) Med Hx Thyroid Dysfunction: No (12/07/2016 17:19:Aye Martinez RNC) Med Hx Trauma/Violence: No (12/07/2016 17:19:Aye Martinez RNC) Med Hx Blood Transfusion: No (12/07/2016 17:19:Aye Martinez RNC) Med Hx Pulmonary (Asthma,TB): No (12/07/2016 17:19:Aye Martinez RNC) Med Hx Breast: No (12/07/2016 17:19:Aye Martinez RNC) Med Hx BOOSTER ASSEMBLER Surgery: No (12/07/2016 17:19:ROXANA Dominguez) Med Hx Hospitalization/Surgery: Yes (12/07/2016 17:19:Aye Martinez RNC) Med Hx Anesthetic Complications: No (12/07/2016 17:19:Aye Martinez RNC) Med Hx Abnormal Pap Smear: Yes (12/07/2016 17:19:Aye Martinez RNC) Other Medical Diseases: No (12/07/2016 17:19:Aye Martinez RNC) Med Hx Significant Family Hx: No (12/07/2016 17:19:Aye Martinez RNC) Details of Med/Surg Hx: Tonsillectomy, wisdom teeth. H/O toxic shock syndrome age 13, hospitalized x 1 week (12/07/2016 17:19:Madison Thomason RN) INFECTIOUS HISTORY Inf Hx Gonorrhea: No (12/07/2016 17:19:[facility]) Inf Hx Chlamydia: No (12/07/2016 17:19:[facility]) Inf Hx Syphilis: No (12/07/2016 17:19:[facility]) Inf Hx HIV/AIDS: No (12/07/2016 17:19:[facility]) Inf Hx Human Papilloma Virus: Yes (12/07/2016 17:19:[facility]) Inf Hx Pt/Partner Genital Herpes: No (12/07/2016 17:19:[facility]) Inf Hx Tuberculosis/Exposure: No (12/07/2016 17:19:[facility]) Inf Hx Hepatitis B,C: No (12/07/2016 17:19:[facility]) Inf Hx Rash or Viral Illness: No (12/07/2016 17:19:[facility]) GENETIC HISTORY Gen Hx Age >=35 at MICHAEL: No (12/07/2016 17:19:[facility]) Gen [facility]: [facility] Hx Congenital Heart Defect: No (12/07/2016 17:19:[facility]) Gen Hx Neural Tube Defect: No (12/07/2016 17:19:[facility]) Gen Hx [facility]'s Syndrome: [facility] Gen Hx Fazal-Sachs: No (12/07/2016 17:19:Aye Martinez RN) Gen Hx Tennille: No (12/07/2016 17:19:Aye Martinez RN) Gen Hx Familial Dysautonomia: No (12/07/2016 17:19:Aye Martinez RN) Gen Hx Sickle Cell Disease/Trait: No (12/07/2016 17:19:Aye Martinez RN) Gen Hx Hemophilia/Blood Disorder: No (12/07/2016 17:19:Aye Martinez RN) Gen Hx Muscular Dystrophy: No (12/07/2016 17:19:Aye Martinez RN) Gen Hx Cystic Fibrosis: No (12/07/2016 17:19:Aye Martinez RN) Gen Hx [place]tons Chorea: No (12/07/2016 17:19:Aye Martinez [facility]) Gen Hx Mental Retardation/Autism: No (12/07/2016 17:19:Aye Martinez RN) Gen Hx Tested for Fragile X: No (12/07/2016 17:19:ROXANA Dominguez) Gen Hx Other Inher/Chromosomal: No (12/07/2016 17:19:ROXANA Dominguez) Gen Hx Maternal Metabolic DO: No (12/07/2016 17:19:ROXANA Dominguez) Gen Hx Pt Father or FOB Defect: No (12/07/2016 17:19:ROXANA Dominguez) Gen Hx Other Genetic History: No (12/07/2016 17:19:ROXANA Dominguez) Gen Hx Drugs/Meds since LMP: No (12/07/2016 17:19:ROXANA Dominguez)
--- NOTE | 2017-01-07 08:12 | Delivery Summary ---
Del Sum A-C Datetime Report Generated by CPN: 01/07/2017 08:12 ADMISSION DATA Chief Complaint: Signs/Symptoms Gestational HTN; Scheduled Induction of Labor Indication for Induction: Gest. HTN/PreEclampsia/Eclampsia Admission Impression: Term, Intrauterine ; No Active Labor; Intact Membranes; Induction of Labor Admit Provider Comments: Admit for IOL, Cat 1 strip, no UC's, reviewed POC, G1 Start Pitocin, monitor closely DELIVERY PERSONNEL Delivery Doctor:: Isabelle Baldwin MD Anesthesiologist:: Arslan Davila MD SAFETY TRAINER:: R David, SAFETY TRAINER Labor and Delivery Nurse:: Elviaarlin Quan, RN Nursery Nurse:: Rachel Guajardo, RENATO Forensic Social Worker/LEARNING DISABLED TEACHER: Ellyn Henderson, RADIO DISC JOCKEY Forensic Social Worker/LEARNING DISABLED TEACHER: Vasu Farfan, ST MATERNAL INFORMATION Delivery Anesthesia: Spinal Medications After Delivery: Pitocin Drip 20 Units/1000ml NSS Estimated Blood Loss (ml): 600 Maternal Complications: None LABOR SUMMARY EDC: 01/23/2017 00:00 No. Babies in Womb: 1 LABOR INFORMATION Reason for Induction: Chronic Hypertension Cervical Ripening Agents: Cervidil; Cytotec @ Oxytocin: Induction Group B Beta Strep: Positive Antibiotics # of Doses: 2 Antibiotics Time of Last Dose: 1720 Name of Antibiotic Given: Ancef Steroids Given: None Reason Steroids Not Administered: Not Applicable MEMBRANES Membranes Rupture Method: Artificial Rupture of Membranes: 01/05/2017 16:25 Length of Rupture (hr): 2.18 Amniotic Fluid Color: Particulate Meconium Amniotic Fluid Amount: Moderate STAGES OF LABOR Stage 3 hr: 0 Stage 3 min: 0 CSECTION DELIVERY Primary Indication: Failure of Descent Other Primary Indication: intolerance to labor Secondary Indication: Nonreassuring Status CSection Urgency: Non-Scheduled CSection Incidence: Primary Labor: Labor Elective: Nonelective CSection Incision: Lower Uterine Transverse BABY A INFORMATION Infant Delivery Date/Time: 01/05/2017 18:36 Method of Delivery: Born in Route : No : N/A Forceps: N/A Vacuum Extraction: Successful Shoulder Dystocia : No PRESENTATION/POSITION BABY A Presentation: Cephalic PLACENTA INFORMATION BABY A Placenta Delivery Time : 01/05/2017 18:36 Placenta Method of Delivery: Manual Removal Placenta Status: Delivered SCORES BABY A Heart Rate 1 min: >100 bpm Resp Effort 1 min: Good Cry Reflex Irritability 1 min: Cough or Sneeze or Pulls Away Muscle Tone 1 min: Active Motion Color 1 min: Body [place], Extremities Blue SCORE 1 MIN: 9 Heart Rate 5 min: >100 bpm Resp Effort 5 min: Good Cry Reflex Irritability 5 min: Cough or Sneeze or Pulls Away Muscle Tone 5 min: Active Motion Color 5 min: Body [place], Extremities Blue SCORE 5 MIN: 9 INFANT INFORMATION BABY A Gestational Age at Delivery: 37.3 Gestational Status: Early Term- 37- 38.6 Weeks Infant Outcome : Liveborn Condition : Stable Sex: Male WEIGHT/LENGTH BABY A Infant Birthweight (gm): 2960 Weight (lb): 6 Weight (oz): 8 Infant Length (in): 20.75 Length (cm): 52.71 CORD INFORMATION BABY A No. Cord Vessels: 3 Nuchal Cord : N/A Cord Blood Taken: Yes-For Eval (Mom's Blood Type - or O+) Infant Suction: None ASSESSMENT BABY A Complications: Meconium Physical Findings at Delivery: Within Normal Limits Respirations: Appears Normal Skin to Skin: Yes Skin to Skin Time (min): 40 Training Representative/ALS Called : No Care By: Veronica Guajardo RN Transferred To: Nursery
[2017-01-07] MEDS: DOCUSATE SODIUM 100 MG CAPSULE PO SCH (09:02)
[2017-01-07] MEDS: PRENATAL VITAMIN W-O CA NO5/FE FUMARATE/FA CAPSULE PO SCH (09:02)
[2017-01-07] MEDS: NIFEDIPINE 30 MG TAB.ER.24 PO SCH (09:02)
--- NOTE | 2017-01-07 09:54 | PDOC DISCHARGE SUMMARY ---
Final Diagnosis Discharge Date: 01/07/17 - Final Diagnosis (1) Acute blood loss anemia Is this a current diagnosis for this admission?: Yes (2) Chronic hypertension affecting Is this a current diagnosis for this admission?: Yes (3) Delivery by emergency caesarean section Is this a current diagnosis for this admission?: Yes (4) Failure to progress in labor, delivered, current hospitalization Is this a current diagnosis for this admission?: Yes (5) Gestational diabetes mellitus (GDM) Is this a current diagnosis for this admission?: Yes Discharge Data - Discharge Medication Home Medications: Nifedipine [Procardia XL 60 mg Tablet] 60 mg PO DAILY 12/07/16 Vit/Iron Fumarate/FA [ Tablet] 1 tab PO DAILY 12/07/16 Docusate Sodium [Colace 100 mg Capsule] 100 mg PO BID #60 capsule 01/07/17 Ferrous Sulfate [Feosol 325 mg Tablet] 325 mg PO DAILY #30 tab 01/07/17 Ibuprofen [Motrin 800 mg Tablet] 800 mg PO Q6 #60 tablet 01/07/17 Nifedipine [Procardia XL 30 mg Tablet] 60 mg PO DAILY #30 tab.er.24 01/07/17 Oxycodone HCl/Acetaminophen [Percocet 5-325 mg Tablet] 2 tab PO Q4HP PRN #30 tablet 01/07/17 Gestational Age: 37 Reason(s) for Admission: Induction of Labor, Group B Strep Positive Procedures: NST Intrapartum Procedure(s): : Low Cervical, Transverse - [place] Data Baby 1 Male at 1 minute: 9 at 5 minutes: 9 Weight: 2690 kg Home with Mother: Yes Complications: Yes - intolerance to labor, mec - Diagnosis Test Laboratory: Temp Pulse Resp BP Pulse Ox 97.5 F 95 16 133/86 H 98 01/07/17 08:51 01/07/17 08:51 01/07/17 08:51 01/07/17 08:03 01/07/17 08:51 01/04/17 01/04/17 01/06/17 10:43 10:58 06:40 RBC 4.00 3.21 L Hgb 12.1 9.8 L D Hct 35.6 L 28.4 L Urine Opiates Screen NEGATIVE - Discharge information/Instructions Discharge Activity: Activity As Tolerated, No Lifting Over 10 Pounds, Pelvic Rest, No tub bath Discharge Diet: Regular Disposition: HOME, SELF-CARE Follow [facility]: [facility] in: 1, Weeks
[2017-01-07 10:45] VITALS: BP 139/88
--- NOTE | 2017-01-08 06:00 | L&D Current Admission ---
Current Admit Datetime Report Generated by CPN: 01/08/2017 06:00 ADMISSION INFORMATION Current Admit Date/Time: 01/04/2017 11:16 (01/04/2017 11:15:ROXANA Kingsley) Reason for Admission: Induction of Labor (01/04/2017 11:15:ROXANA Kingsley) Chief Complaint: Scheduled Induction of Labor (01/04/2017 11:15:ROXANA Kingsley) EGA per Dates: 37.2 (01/04/2017 11:15:QS system process) Method of Arrival: Ambulatory (01/04/2017 11:15:ROXANA Kingsley) Admitted From: Home (01/04/2017 11:15:ROXANA Kingsley) Reason for Induction: Not Applicable (01/04/2017 11:15:ROXANA Kingsley) Records Available: Yes (01/04/2017 11:15:ROXANA Kingsley) General Admission Information: Reviewed (01/04/2017 11:15:ROXANA Kingsley) General Admission Reviewed By: Albertina SCHMIDT (01/04/2017 11:15:ROXANA Kingsley) BELONGINGS/ADVANCED DIRECTIVES Valuables/Personal Effects: None (01/04/2017 11:15:ROXANA Kingsley) Disposition of Belongings: Kept with Patient (01/04/2017 11:15:ROXANA Kingsley) Advance Direct for Healthcare: No, and Wants No Information (01/04/2017 11:15:ROXANA Kingsley) Durable Power of House Principal: No (01/04/2017 11:15:ROXANA Kingsley) Living Will: No (01/04/2017 11:15:ROXANA Kingsley) Organ Donor: No (01/04/2017 11:15:ROXANA Kingsley) Pt Rights Information Given: Yes (01/04/2017 11:15:ROXANA Kingsley) Pt Understands Pt Rights: Yes (01/04/2017 11:15:ROXANA Kingsley) LEARNING ASSESSMENT Knowledge Level: Understands L_D Process; Understands Care Activities; Had Pre-Hospital Education; Understands Diagnosis (01/04/2017 11:15:ROXANA Kingsley) Barriers to Learning: None (01/04/2017 11:15:ROXANA Kingsley) Learning Readiness: Motivated (01/04/2017 11:15:ROXANA Kingsley) Learns Best By: 1 to 1 Instruction; Reading; Videos; Group Discussion; Demonstration (01/04/2017 11:15:ROXANA Kingsley) Learning Needs: Labor and Delivery Process; Pain Management; Symptoms to Report; Treatment Plan; Medication; Diagnosis; Nutrition; Equipment; Infant Care; Community Resources (01/04/2017 11:15:ROXANA Kingsley) DOMESTIC VIOLANCE SCREENING Dom Viol Threatened/Hurt: No (01/04/2017 11:15:ROXANA Kingsley) Hx of Abuse/Neglect past 2yrs: No (01/04/2017 11:15:ROAXNA Kingsley) Feel Unsafe Going Home: No (01/04/2017 11:15:ROXANA Kingsley) Addt'l Observ Indicating Abuse: No (01/04/2017 11:15:ROXANA Kingsley) Reason Unable to Complete Screen: N/A, Screen Completed (01/04/2017 11:15:ROXNAA Kingsley) Considered Personal Harm/Suicide: No (01/04/2017 11:15:ROXANA Kingsley) NUTRITIONAL/FUNCTIONAL SCREENING Problem with Appetite >5 Days: No (01/04/2017 11:15:ROXANA Kingsley) Chew/Swallow Difficulties: No (01/04/2017 11:15:ROXANA Kingsley) Inappropriate Wt Gain/Loss: No (01/04/2017 11:15:ROXANA Kingsley) Presence Skin Breakdown/Ulcer: No (01/04/2017 11:15:ROXANA Kingsley) Special Diet: No (01/04/2017 11:15:ROXANA Kingsley) Pt Requests Student Records Specialist Visit: Ayla (01/04/2017 11:15:ROXANA Kingsley) Hx of Any of the Following?: N/A (01/04/2017 11:15:ROXANA Kingsley) New Diagnosis of: N/A (01/04/2017 11:15:ROXANA Kingsley) Requires Assist w/Ambulation: Ayla (01/04/2017 11:15:ROXANA Kingsley) Uses Assist Device to Ambulate: Ayla (01/04/2017 11:15:ROXANA Kingsley) Pt Requires Help w/ADL's: No (01/04/2017 11:15:ROXANA Kingsley)
--- NOTE | 2017-01-08 06:00 | L&D General Admission ---
General Admit Datetime Report Generated by CPN: 01/08/2017 06:00 INFORMATION Patient Age: 26 (11/30/2016 10:00:QS system process) EDC: 01/23/2017 00:00 (12/07/2016 17:19:Rosmery Nixon RN) : 1 (12/07/2016 17:19:ROXANA Dominguez) Para: 0 (12/07/2016 19:20:Reena Negro RN) Term: 0 (12/07/2016 17:19:ROXANA Dominguez) : 0 (12/07/2016 17:19:ROXANA Dominguez) Spontaneous Abortions: 0 (12/07/2016 17:19:ROXANA Dominguez) Induced Abortions: 0 (12/07/2016 17:19:ROXANA Dominguez) Livin (12/07/2016 17:19:ROXANA Dominguez) Cesareans: 0 (12/07/2016 17:19:ROXANA Dominguez) VBACs: 0 (12/07/2016 17:19:Aye Martinez RNC) Ectopic: 0 (12/07/2016 17:19:Aye Elmendorf, [facility]) Multiple Births: 0 (12/07/2016 17:19:Aye Elmendorf, [facility]) Baby, Number in Womb: 1 (12/07/2016 19:20:Aye Martinez, [facility]) CARE Primary [facility] (12/07/2016 17:19:Aye Martinez [facility]) Month of 1st Visit: May (12/07/2016 17:19:Aye Martinez, [facility]) Adequate Care: Yes (12/07/2016 17:19:Aye Martinez, [facility]) Prepregnancy Weight (lb): 228 (12/07/2016 17:19:Aye Martinez [facility]) Prepregnancy Weight (kg): 103.6 (12/07/2016 17:19:QS system process) Height (in): 68 (01/07/2017 09:54:QS system process) ALLERGIES Medication Allergy: Yes (12/07/2016 17:19:Aye Martinez RNC) Medication Allergies: Penicillins (12/31/2016); ciprofloxacin (12/31/2016); Erythromycins (12/31/2016 14:52:Madison Thomason RN) Latex Allergy: No Latex Allergies (12/07/2016 17:19:Aye Martinez RN) COMMUNICATION Primary Language: Macedonian (12/07/2016 17:19:ROXANA Dominguez) Medical Tx Preferred Language: Macedonian (12/07/2016 17:19:ROXANA Dominguez) Communication Barrier(s): None (12/07/2016 17:19:ROXANA Dominguez) DEMOGRAPHICS Address: [address] [place] [id number] (11/30/2016 10:00:QS system process) Zipcode: [address] (11/30/2016 10:00:QS system process) Home (11/30/2016 10:00:QS system process) Work (11/30/2016 10:00:QS system process) N: [phone] (11/30/2016 10:00:QS system process) Next of Kin Name: CRISELDA GONZALEZ (11/30/2016 10:00:QS system process) Next of Kin (11/30/2016 10:00:QS system process) Next of Kin Relationship: OR (11/30/2016 10:00:QS system process) Date of : 1990 (11/30/2016 10:00:QS system process) Marital Status: Single (11/30/2016 10:00:QS system process) Sex: Female (11/30/2016 10:00:QS system process) Occupation: Other (12/07/2016 17:19:ROXANA Dominguez) Occupation- Other : Hairstylist (12/07/2016 17:19:ROXANA Dominguez) Race: (11/30/2016 10:00:QS system process) Ethnicity: Non- or (11/30/2016 10:00:QS system process) Yazidism: None (11/30/2016 10:00:QS system process) Education: 12 (12/07/2016 17:19:ROXANA Dominguez) FOB Involved: Yes (12/07/2016 17:19:ROXANA Dominguez) Father of Baby Name: Criselda Gonzalez (12/07/2016 17:19:ROXANA Dominguez) DRUG AND ALCOHOL USE Alcohol: No (12/07/2016 17:19:ROXANA Dominguez) Cigarettes: Former Smoker. [id number] (12/07/2016 17:19:ROXANA Dominguez) Marijuana: No (12/07/2016 17:19:Aye Camp, RNC) Cocaine: No (12/07/2016 17:19:Aye Camp, RNC) Other Illicit Drugs: No (12/07/2016 17:19:Aye Camp, RNC) VACCINE HISTORY Influenza Vaccine: No (12/07/2016 17:19:Aye Camp, RN) Pneumococcal Vaccine: No (12/07/2016 17:19:Aye Camp, RN) Tetanus Vaccine: Yes (12/07/2016 17:19:Aye Camp, RN) Tetanus Date: 11-10-2016 (12/07/2016 17:19:Aye Camp, RN) Tdap Vaccine: Yes (12/07/2016 17:19:Aye Camp, RNC) Tdap Date: 11-10-2016 (12/07/2016 17:19:Aye Camp, RNC) Hepatitis B Vaccine: Uncertain (12/07/2016 17:19:Aye Camp, [facility]) Marketing Project Lead: [facility] (12/07/2016 17:19:Shikha Bellavance, [facility]) Feeding Preference: Both (12/07/2016 17:19:ROXANA Dominguez) Benefit of Breast Feed Discussed: Yes (12/07/2016 17:19:ROXANA Dominguez) Circumcision: Yes (12/07/2016 17:19:ROXANA Dominguez) Classes Attended: No (12/07/2016 17:19:ROXANA Dominguez) Tubal Ligation: No (12/07/2016 17:19:ROXANA Dominguez) Tubal Authorization Signed: N/A (12/07/2016 17:19:ROXANA Dominguez) Consent: N/A (12/07/2016 17:19:ROXANA Dominguez) Consent Signed: N/A (12/07/2016 17:19:ROXANA Dominguez) Pain Management Plans: Epidural (12/07/2016 17:19:ROXANA Dominguez) Plans for Labor and Delivery: None (12/07/2016 17:19:ROXANA Dominguez) Support Person: Criselda Gonzalez (12/07/2016 17:19:ROXANA Dominguez) Support Person Relationship: Significant Other (12/07/2016 17:19:ROXANA Dominguez) Cultural/Spritual Practice: No (12/07/2016 17:19:ROXANA Dominguez) Spir/Cult Dietary Needs: No (12/07/2016 17:19:ROXANA Dominguez) LIVING SITUATION/DISCHARGE PLAN Living Arrangements: House (12/07/2016 17:19:ROXANA Dominguez) Adequate Access to:: Electric; Heat; Refrigeration; Plumbing/Running water; Phone; Transportation (12/07/2016 17:19:ROXANA Dominguez) WIC Program: Needs referral (12/07/2016 17:19:ROXANA Dominguez) Discharge Computer Help Desk Specialist Person: Criselda Sandovaldle (12/07/2016 17:19:ROXANA Dominguez) Person to Help after Discharge: Criselda Gonzalez (12/07/2016 17:19:ROXANA Dominguez) Currently Using Commun Resources: No (12/07/2016 17:19:ROXANA Dominguez) Outside Agency/Canceling And Cutting Control Clerk: No (12/07/2016 17:19:ROXANA Dominguez) Car Seat for Discharge: Yes (12/07/2016 17:19:ROXANA Dominguez) Adoption Requested: No (12/07/2016 17:19:ROXANA Dominguez) Pt Contact w/infant Post : N/A (12/07/2016 17:19:ROXANA Dominguez) LABS Blood Type: A Positive (12/07/2016 17:19:ROXANA Dominguez) Antibody Screen: negative (12/07/2016 17:19:ROXANA Dominguez) Hemoglobin: 9.8 L (01/06/2017 06:40:QS system process) Hematocrit: 28.4 L (01/06/2017 06:40:QS system process) MCV: 89 (01/06/2017 06:40:QS system process) Group Beta Strep: Positive (12/28/2016 14:55:Madison Thomason RN) Gonorrhea: Negative (12/07/2016 17:19:ROXANA Dominguez) Chlamydia: Negative (12/07/2016 17:19:ROXANA Dominguez) RPR/VDRL: Nonreactive (12/07/2016 17:19:ROXANA Dominguez) HIV Results: negative (12/07/2016 17:19:ROXANA Dominguez) Hepatitis B: Negative (12/07/2016 17:19:ROXANA Dominguez) Rubella: Non-Immune (12/07/2016 17:19:ROXANA Dominguez) OB/PREVIOUS HISTORY Previous Procedures: None (12/07/2016 17:19:ROXANA Dominguez) Current Procedures: Ultrasound; NST (12/07/2016 17:19:ROXANA oDminguez) History of Previous : No (12/07/2016 17:19:ROXANA Dominguez) History of Gestational Diabetes: Yes (12/07/2016 17:19:ROXANA Dominguez) History of PIH: No (12/07/2016 17:19:RXOANA Dominguez) History of Incompetent Cervix: No (12/07/2016 17:19:ROXANA Dominguez) History of Placenta Previa/Abrup: No (12/07/2016 17:19:ROXANA Dominguez) History of Macrosomia: No (12/07/2016 17:19:ROXANA Dominguez) History of IUGR: No (12/07/2016 17:19:ROXANA Dominguez) History of Hemorrhage: No (12/07/2016 17:19:ROXANA Dominguez) History of Loss/Stillborn: No (12/07/2016 17:19:ROXANA Dominguez) History of : No (12/07/2016 17:19:ROXANA Dominguez) History of D (Rh) Sensitization: No (12/07/2016 17:19:ROXANA Dominguez) History Recurrent Loss/Stillborn: No (12/07/2016 17:19:ROXANA Dominguez) History Depression/PP Depression: No (12/07/2016 17:19:ROXANA Dominguez) History of Uterine Anomaly/PATRICIA: No (12/07/2016 17:19:ROXANA Dominguez) History of Infertility: No (12/07/2016 17:19:ROXANA Dominguez) History of ART Treatment: No (12/07/2016 17:19:ROXANA Dominguez) History of PATRICIA: No (12/07/2016 17:19:ROXANA Dominguez) Comments Obstetrical History: G-1 GDM, CHTN (12/07/2016 17:19:ROXANA Dominguez) MEDICAL HISTORY Med Hx Diabetes: Yes (12/07/2016 17:19:ROXANA Dominguez) Diabetes Type: Gestational Diabetes (12/07/2016 17:19:ROXANA Dominguez) Med Hx Hypertension: Yes (12/07/2016 17:19:ROXANA Dominguez) Med Hx Heart Disease: No (12/07/2016 17:19:ROXANA Dominguez) Med Hx Autoimmune Disorder: No (12/07/2016 17:19:ROXANA Dominguez) Med Hx Kidney Disease/UTI: No (12/07/2016 17:19:ROXANA Dominguez) Med Hx Neurologic/Epilepsy: No (12/07/2016 17:19:Aye Martinez RNC) Med Hx Psychiatric Disorders: No (12/07/2016 17:19:Aye Martinez RNC) Med Hx Hepatitis/Liver Disease: No (12/07/2016 17:19:Aye Martinez RNC) Med Hx Varicosities/Phlebitis: No (12/07/2016 17:19:Aye Martinez RNC) Med Hx Thyroid Dysfunction: No (12/07/2016 17:19:Aye Martinez RNC) Med Hx Trauma/Violence: No (12/07/2016 17:19:Aye Martinez RNC) Med Hx Blood Transfusion: No (12/07/2016 17:19:Aye Martinez RNC) Med Hx Pulmonary (Asthma,TB): No (12/07/2016 17:19:Aey Martinez RNC) Med Hx Breast: No (12/07/2016 17:19:Aye Martinez RNC) Med Hx INTERNAL AUDITOR Surgery: No (12/07/2016 17:19:ROXANA Dominguez) Med Hx Hospitalization/Surgery: Yes (12/07/2016 17:19:Aye Martinez RNC) Med Hx Anesthetic Complications: No (12/07/2016 17:19:Aye Martinez RNC) Med Hx Abnormal Pap Smear: Yes (12/07/2016 17:19:Aye Martinez RNC) Other Medical Diseases: No (12/07/2016 17:19:Aye Martinez RNC) Med Hx Significant Family Hx: No (12/07/2016 17:19:Aye Martinez RNC) Details of Med/Surg Hx: Tonsillectomy, wisdom teeth. H/O toxic shock syndrome age 13, hospitalized x 1 week (12/07/2016 17:19:Madison Thomason RN) INFECTIOUS HISTORY Inf Hx Gonorrhea: No (12/07/2016 17:19:[facility]) Inf Hx Chlamydia: No (12/07/2016 17:19:[facility]) Inf Hx Syphilis: No (12/07/2016 17:19:[facility]) Inf Hx HIV/AIDS: No (12/07/2016 17:19:[facility]) Inf Hx Human Papilloma Virus: Yes (12/07/2016 17:19:[facility]) Inf Hx Pt/Partner Genital Herpes: No (12/07/2016 17:19:[facility]) Inf Hx Tuberculosis/Exposure: No (12/07/2016 17:19:[facility]) Inf Hx Hepatitis B,C: No (12/07/2016 17:19:[facility]) Inf Hx Rash or Viral Illness: No (12/07/2016 17:19:[facility]) GENETIC HISTORY Gen Hx Age >=35 at MICHAEL: No (12/07/2016 17:19:[facility]) Gen Hx Thalassemia: No [facility] Gen Hx Congenital Heart Defect: No (12/07/2016 17:19:[facility]) Gen Hx Neural Tube Defect: No (12/07/2016 17:19:[facility]) Gen Hx Down's Syndrome: No (12/07/2016 [facility] Gen Hx Fazal-Sachs: No (12/07/2016 17:19:Aye Martinez RN) Gen Hx Tennille: No (12/07/2016 17:19:Aye Martinez RN) Gen Hx Familial Dysautonomia: No (12/07/2016 17:19:Aye Martinez RN) Gen Hx Sickle Cell Disease/Trait: No (12/07/2016 17:19:Aye Martinez RN) Gen Hx Hemophilia/Blood Disorder: No (12/07/2016 17:19:Aye Martinez RN) Gen Hx Muscular Dystrophy: No (12/07/2016 17:19:Aye Martinez RN) Gen Hx Cystic Fibrosis: No (12/07/2016 17:19:Aye Martinez RN) Gen Hx Huntingtons Chorea: No (12/07/2016 17:19:Aye Martinez [facility]) Gen Hx Mental Retardation/Autism: No (12/07/2016 17:19:Aye Martinez RN) Gen Hx Tested for Fragile X: No (12/07/2016 17:19:ROXANA Dominguez) Gen Hx Other Inher/Chromosomal: No (12/07/2016 17:19:ROXANA Dominguez) Gen Hx Maternal Metabolic DO: No (12/07/2016 17:19:ROXANA Dominguez) Gen Hx Pt Father or FOB Defect: No (12/07/2016 17:19:ROXANA Dominguez) Gen Hx Other Genetic History: No (12/07/2016 17:19:ROXANA Dominguez) Gen Hx Drugs/Meds since LMP: No (12/07/2016 17:19:ROXANA Dominguez)
== END 2017-01-07 12:31 | disposition home or self-care (01) | DRG 765 ==
LOC: LR 10:21 → 2S 01-05 21:17
PROVIDERS: ADMIT Obstetrics & Gynecology; ATTEND Obstetrics & Gynecology
PROC: 10D00Z1 Extraction of Products of Conception, Low, Open Approach (ICD-10-PCS; principal; 2017-01-05)
DX: O24.420 Gestational diabetes mellitus in childbirth, diet controlled (principal); O10.92 Unspecified pre-existing hypertension complicating childbirth; D62 Acute posthemorrhagic anemia; O99.824 Streptococcus B carrier state complicating childbirth; O99.214 Obesity complicating childbirth; O32.4XX0 Maternal care for high head at term, not applicable or unspecified; O99.02 Anemia complicating childbirth; O77.0 Labor and delivery complicated by meconium in amniotic fluid; O76 Abnormality in fetal heart rate and rhythm complicating labor and delivery; Z3A.37 37 weeks gestation of pregnancy; Z37.0 Single live birth
CPT/HCPCS: 1961; 36415; 80053; 80307; 81001; 83615; 84550; 85025; 85027; 86592; 86850; 86900; 86901; 94799; J0690; J1200; J1885; J2250; J2270; J2370; J2405; J2590; J3010; J3490

== ENCOUNTER 2017-10-28 11:13 | Day surgery (SDC) | payer BC, MEDICAID ==
--- NOTE | 2017-10-18 10:47 | RADIOLOGY REPORT (SQ) ---
EXAM DESCRIPTION: CHEST PA/LATERAL COMPLETED DATE/TIME: 10/18/2017 10:38 am REASON FOR STUDY: PRE-OP COMPARISON: Two-view chest 11/19/2013 EXAM PARAMETERS: NUMBER OF VIEWS: two views TECHNIQUE: Digital Frontal and Lateral radiographic views of the chest acquired. RADIATION DOSE: NA LIMITATIONS: none FINDINGS: LUNGS AND PLEURA: No opacities, masses or pneumothorax. No pleural effusion. MEDIASTINUM AND HILAR STRUCTURES: No masses or contour abnormalities. HEART AND VASCULAR STRUCTURES: Heart normal size. No evidence for failure. BONES: No acute findings. HARDWARE: None in the chest. OTHER: No other significant finding. IMPRESSION: NO SIGNIFICANT RADIOGRAPHIC FINDING IN THE CHEST. TECHNICAL DOCUMENTATION: JOB ID: [id number] [employer]- All Rights Reserved
[2017-10-18 11:08] LABS: ABSOLUTE EOSINOPHILS # (AUTO) 0.1 10^3/uL (0.0-0.6); ABSOLUTE MONOCYTES (AUTO) 0.5 10^3/uL (0.1-1.4); BASOPHILS % (AUTO) 0.8 % (0-2); EOSINOPHILS % (AUTO) 2.4 % (0-6); HEMATOCRIT 41.3 % (36.0-47.0); HEMOGLOBIN 14.1 g/dL (12.0-15.5); LYMPHOCYTES % (AUTO) 35.5 % (13-45); MEAN CORPUSCULAR HEMOGLOBIN 30.3 pg (27.0-33.4); MEAN CORPUSCULAR HGB CONC 34.2 g/dL (32.0-36.0); MEAN CORPUSCULAR VOLUME 89 fl (80-97); MONOCYTES % (AUTO) 9.1 % (3-13); PLATELET COUNT 281 10^3/uL (150-450); RED BLOOD COUNT 4.65 10^6/uL (3.72-5.28); RED CELL DISTRIBUTION WIDTH 13.1 % (11.5-14.0); SEGMENTED NEUTROPHILS % (AUTO) 52.2 % (42-78); TOTAL CELLS COUNTED % (AUTO) 100 %; WHITE BLOOD COUNT 5.8 10^3/uL (4.0-10.5)
[2017-10-18 11:10] LABS: AMORPHOUS SEDIMENT,URINE TRACE /HPF; APPEARANCE,URINE SLIGHTLY-CLOUDY; BILIRUBIN,URINE NEGATIVE (NEGATIVE); COLOR,URINE YELLOW; GLUCOSE, URINE NEGATIVE (NEGATIVE); KETONES,URINE NEGATIVE (NEGATIVE); LEUKOCYTE ESTERASE,URINE NEGATIVE (NEGATIVE); NITRITE,URINE NEGATIVE (NEGATIVE); PROTEIN,URINE NEGATIVE (NEGATIVE); URINE SPECIFIC GRAVITY 1.021; UROBILINOGEN,URINE NEGATIVE mg/dL (<2.0)
[2017-10-18 11:34] LABS: ANION GAP 12 (5-19); BLOOD UREA NITROGEN 17 mg/dL (7-20); CALCIUM 10.4 mg/dL (8.4-10.2); CARBON DIOXIDE 26 mmol/L (22-30); CHLORIDE 106 mmol/L (98-107); GLUCOSE 85 mg/dL (75-110); SODIUM 144.1 mmol/L (137-145)
--- NOTE | 2017-10-18 13:07 | EKG REPORT ---
SEVERITY:- NORMAL ECG - SINUS RHYTHM : Confirmed by: Chaparro Jones MD 18-Oct-2017 13:07:01
[~2017-10-28 11:13] MED LIST: LACTATED RINGERS 1000 ML IV PRN; LIDOCAINE 0.5% INJ-PF (5 MG/ML) 50 ML SDV SUBCUT PRN
[2017-10-28] MEDS ORDERED: FENTANYL CITRATE INJ/PF 100 MCG/2 ML AMPUL ONE (12:09)
[2017-10-28] MEDS ORDERED: MIDAZOLAM 2 MG/2 ML INJ ONE (12:09)
[2017-10-28] MEDS ORDERED: ACETAMINOPHEN 100 ML IV ONE (12:10)
[2017-10-28] MEDS ORDERED: PROPOFOL INJ 200 MG/20 ML VIAL IV ONE (12:10)
[2017-10-28] MEDS ORDERED: EPHEDRINE SULFATE INJ 50 MG/1 ML AMPULE ONE (12:10)
[2017-10-28] MEDS ORDERED: LIDOCAINE 1% INJ-PF (10 MG/ML) 30 ML SDV ONE (13:38)
[2017-10-28] MEDS ORDERED: BUPIVACAINE HCL 0.5 % INJ/PF 30 ML SDV ONE (13:38)
[2017-10-28] MEDS ORDERED: LIDOCAINE 2% INJ-PF (20 MG/ML) 2 ML AMPUL ONE (13:55)
[2017-10-28] MEDS ORDERED: DEXAMETHASONE SOD PHOSPHATE INJ 4 MG/1 ML VIAL ONE (13:55)
[2017-10-28] MEDS ORDERED: METOCLOPRAMIDE HCL INJ/PF 10 MG/2 ML SDV ONE (13:55)
[2017-10-28] MEDS ORDERED: ONDANSETRON HCL INJ/PF 4 MG/2 ML SDV ONE (13:55)
[2017-10-28] MEDS ORDERED: MEPERIDINE HCL/PF INJ 25 MG/1 ML DISP.SYRIN IV PRN (14:00)
[2017-10-28] MEDS ORDERED: DIPHENHYDRAMINE HCL 50 MG/ML VIAL IV PRN (14:00)
[2017-10-28] MEDS ORDERED: MORPHINE SULFATE 10 MG/ML INJ IV PRN (14:00)
[2017-10-28] MEDS ORDERED: ONDANSETRON HCL INJ/PF 4 MG/2 ML SDV IV PRN ×2 (14:00→14:31)
[2017-10-28] MEDS ORDERED: PROMETHAZINE HCL INJ 25 MG/1 ML VIAL IV PRN ×2 (14:00)
[2017-10-28] MEDS ORDERED: FENTANYL CITRATE INJ/PF 100 MCG/2 ML AMPUL IV PRN ×3 (14:00)
[2017-10-28] MEDS ORDERED: HYDROCODONE/ACETAMINOPHEN 5-325 MG TABLET PO PRN (14:31)
--- NOTE | 2017-10-28 14:31 | Operative Report ---
Operative Report DATE OF SURGERY: 10/28/17 PREOPERATIVE DIAGNOSIS: Right carpal tunnel syndrome POSTOPERATIVE DIAGNOSIS: Same OPERATION: Right Endoscopic Carpal Tunnel Release SURGEON: KEYA THOMPSON ANESTHESIA: LMAC COMPLICATIONS: None ESTIMATED BLOOD LOSS: Minimal PROCEDURE: Indication for above procedure: 27-year-old female with bilateral carpal tunnel syndrome right greater than left. Patient began having symptoms during her but they continue to persist. She attempted conservative measures including injections and bracing without resolution of her symptoms. At that point we discussed treatment options including operative versus nonoperative intervention. Risks and benefits were explained to the patient patient verbalized understanding consented for the procedure. Procedure In Detail: Patient was seen and evaluated in the preoperative holding area. The RIGHT upper extremity was initialized and marked. Patient received Ancef IV for bacterial prophylaxis. Patient was taken back to the operative room where transferred operative table. Patient was then placed under MAC anesthesia. Once adequately anesthetized, a nonsterile tourniquet was placed on the upper extremity. A surgical team debriefing was performed ensuring all instrumentation was available, the surgical procedure was discussed with possible concerns reviewed. Skin was prepped with alcohol a 50:50 10 mL mixture of 1% lidocaine and 0.5% Marcaine plain was injected locally and w/in carpal canal. The upper extremity was prepped with chlorhexidine and alcohol and draped in a sterile fashion. A timeout was done identifying correct patient, procedure and extremity everyone in attendance agree with this and verbalized no concerns.The extremity was then exsanguinated the tourniquet was inflated to 250 mmHg. A transverse skin incision was made just proximal to the wrist flexion crease ulnar to the palmaris longus. Blunt dissection was performed down to the palmaris longus tendon which was retracted radially. Deep to the palmaris longus tendon was the volar carpal ligament this was incised identifying the median nerve deep. With the use of a [place] elevator any soft tissue/synovium was freed from the undersurface of the transverse carpal ligament. The hook of hamate was identified ulnarly. The ConMed cannulas were then introduced beginning with #1 progressing to a #3 gently dilating the carpal canal. I then introduced the scope within the cannula and identified transverse carpal ligament ensuring the median nerve was not visualized within the cannula. I triangulated distally with a 25-gauge needle identifying the distal aspect of the transverse carpal ligament, to ensure protection of the superficial palmar arch. The arthroscopic knife was used to incise the transverse carpal ligament under direct visualization with the arthroscopic camera. Any excess transverse fibers that remained after the first past were carefully released with a repeat pass. The median nerve was then directly visualized radially without disruption. Once this was completed I placed the #3 dilator and assured I got complete release of the transverse carpal ligament without residual compression. The median nerve was directly visualized and free of any overlying compression. I then turned my attention to release of the volar antebrachial fascia proximally. Once again a [place] was used to open the wound and I proceeded with cannula #1 to #3. The arthroscope was introduced into the cannula and under direct visualization the volar antebrachial fascia was released. Once this was complete I copiusly irrigated the wound with normal saline. The skin incision was closed with 4-0 Monocryl subcutaneous and a running subcuticular 4-0 Monocryl. This was reinforced with Dermabond and Steri -Strips. Sterile, 4 x 4's and a Juan bandage was placed loosely. Sponge counts , instrument counts and needle counts were correct. The was no intraoperative complications patient tolerated the procedure well and was stable to PACU.
--- NOTE | 2017-10-28 14:34 | PDOC DISCHARGE SUMMARY ---
Discharge Summary (SDC) - Discharge Final Diagnosis: Right carpal tunnel syndrome Date of Surgery: 10/28/17 Discharge Date: 10/28/17 Condition: Good Treatment or Instructions: Schedule Follow Up w/ Dr. Aaron Sanchez @ [facility] for Surgery to be seen in 10-14 days or as scheduled [place]: [place]: [place]: May remove dressing on postop day #3, keep incision covered and dry. Ice and elevate May begin finger range of motion attempting to make full fist. Stool softener of choice when on pain medication. Prescriptions: Hydrocodone/Acetaminophen [[place] 5-325 mg Tablet] 1 tab PO Q8 PRN #10 tablet PRN Reason: Referrals: EMILY RODRIGUEZ MD [Primary Care Provider] - Discharge Diet: As Tolerated Respiratory Treatments at Home: Deep Breathing/Coughing Report the Following to Your Physician Immediately: Yellow Skin, Fever over 101 Degrees, Unusual Bleeding, Redness, Swelling, Warmth, Increased Soreness
[2017-10-28 16:24] VITALS: BP 107/68
== END 2017-10-28 16:35 | disposition home or self-care (01) ==
LOC: OROUT 11:13
PROVIDERS: ATTEND Orthopaedic Surgery
PROC: 01N54ZZ Release Median Nerve, Percutaneous Endoscopic Approach (ICD-10-PCS; principal; 2017-10-28 13:30)
DX: G56.01 Carpal tunnel syndrome, right upper limb (principal); I10 Essential (primary) hypertension; E66.9 Obesity, unspecified; Z68.41 Body mass index [BMI] 40.0-44.9, adult; Z88.0 Allergy status to penicillin
CPT/HCPCS: 29848; 93005; 36415; 85025; 81025; 80048; 81001; 71046; 93010; J2250; J1100; J3490 ×3; J3010; J2765; J2405; J2704; J0131; 1810

== ENCOUNTER 2017-11-25 11:38 | Day surgery (SDC) | payer MEDICAID ==
[~2017-11-25 11:38] MED LIST changes: +BUPIVACAINE HCL 0.5 % INJ/PF 30 ML SDV ONE; +CLINDAMYCIN 600 MG/D5W RTU 600 MG/50 ML RTUPB IV PRN; +LIDOCAINE 1% INJ-PF (10 MG/ML) 30 ML SDV ONE
[2017-11-25] MEDS ORDERED: MIDAZOLAM 2 MG/2 ML INJ ONE (11:56)
[2017-11-25] MEDS ORDERED: ONDANSETRON HCL INJ/PF 4 MG/2 ML SDV ONE (11:56)
[2017-11-25] MEDS ORDERED: DEXAMETHASONE SOD PHOSPHATE INJ 4 MG/1 ML VIAL ONE (11:56)
[2017-11-25] MEDS ORDERED: HYDROMORPHONE HCL INJ/PF 2 MG/ML AMPULE ONE (11:57)
[2017-11-25] MEDS ORDERED: PROPOFOL INJ 200 MG/20 ML VIAL IV ONE (11:57)
[2017-11-25] MEDS ORDERED: MORPHINE SULFATE 10 MG/ML INJ IV PRN (12:46)
[2017-11-25] MEDS ORDERED: OXYCODONE-ACETAMINOPHEN 5-325 MG TABLET PO PRN ×2 (12:46)
[2017-11-25] MEDS ORDERED: DIPHENHYDRAMINE HCL 50 MG/ML VIAL IV PRN (12:46)
[2017-11-25] MEDS ORDERED: PROMETHAZINE HCL INJ 25 MG/1 ML VIAL IV PRN ×2 (12:46)
[2017-11-25] MEDS ORDERED: MEPERIDINE HCL/PF INJ 25 MG/1 ML DISP.SYRIN IV PRN (12:46)
[2017-11-25] MEDS ORDERED: FENTANYL CITRATE INJ/PF 100 MCG/2 ML AMPUL IV PRN ×3 (12:46)
[2017-11-25] MEDS ORDERED: HYDROCODONE/ACETAMINOPHEN 5-325 MG TABLET PO PRN (12:57)
--- NOTE | 2017-11-25 12:57 | Operative Report ---
Operative Report PREOPERATIVE DIAGNOSIS: Left carpal tunnel syndrome POSTOPERATIVE DIAGNOSIS: same OPERATION: Endoscopic left carpal tunnel release SURGEON: KEYA THOMPSON ANESTHESIA: LMAC COMPLICATIONS: None ESTIMATED BLOOD LOSS: Minimal PROCEDURE: Indication for above procedure: 27-year-old female with bilateral carpal tunnel syndrome. Patient underwent right carpal tunnel release with good results and thus decision was made to proceed with left carpal tunnel release. Risks and benefits were explained patient verbalized understanding consented for the procedure. Procedure In Detail: Patient was seen and evaluated in the preoperative holding area. The LEFT upper extremity was initialized and marked. Patient patient did not receive antibiotic prophylaxis given her multiple allergies and low risk for infection. Patient was taken back to the operative room where transferred operative table. Patient was then placed under MAC anesthesia. Once adequately anesthetized, a nonsterile tourniquet was placed on the upper extremity. A surgical team debriefing was performed ensuring all instrumentation was available, the surgical procedure was discussed with possible concerns reviewed. Skin was prepped with alcohol a 50:50 10 mL mixture of 1% lidocaine and 0.5% Marcaine plain was injected locally and w/in carpal canal. The upper extremity was prepped with chlorhexidine and alcohol and draped in a sterile fashion. A timeout was done identifying correct patient, procedure and extremity everyone in attendance agree with this and verbalized no concerns.The extremity was then exsanguinated the tourniquet was inflated to 250 mmHg. A transverse skin incision was made just proximal to the wrist flexion crease ulnar to the palmaris longus. Blunt dissection was performed down to the palmaris longus tendon which was retracted radially. Deep to the palmaris longus tendon was the volar carpal ligament this was incised identifying the median nerve deep. With the use of a Anderson elevator any soft tissue/synovium was freed from the undersurface of the transverse carpal ligament. The hook of hamate was identified ulnarly. The ConMed cannulas were then introduced beginning with #1 progressing to a #3 gently dilating the carpal canal. I then introduced the scope within the cannula and identified transverse carpal ligament ensuring the median nerve was not visualized within the cannula. I triangulated distally with a 25-gauge needle identifying the distal aspect of the transverse carpal ligament, to ensure protection of the superficial palmar arch. The arthroscopic knife was used to incise the transverse carpal ligament under direct visualization with the arthroscopic camera. Any excess transverse fibers that remained after the first past were carefully released with a repeat pass. The median nerve was then directly visualized radially without disruption. Once this was completed I placed the #3 dilator and assured I got complete release of the transverse carpal ligament without residual compression. The median nerve was directly visualized and free of any overlying compression. I then turned my attention to release of the volar antebrachial fascia proximally. Once again a Anderson was used to open the wound and I proceeded with cannula #1 to #3. The arthroscope was introduced into the cannula and under direct visualization the volar antebrachial fascia was released. Once this was complete I copiusly irrigated the wound with normal saline. The skin incision was closed with 4-0 Monocryl subcutaneous and a running subcuticular 4-0 Monocryl. This was reinforced with Dermabond and Steri -Strips. Sterile, 4 x 4's and a Juan bandage was placed loosely. Sponge counts , instrument counts and needle counts were correct. The was no intraoperative complications patient tolerated the procedure well and was stable to PACU.
--- NOTE | 2017-11-25 12:57 | Discharge Summary ---
Discharge Summary (SDC) - Discharge Final Diagnosis: Left carpal tunnel syndrome Date of Surgery: 11/25/17 Discharge Date: 11/25/17 Treatment or Instructions: Schedule Follow Up w/ Dr. Aaron Sanchez @ [facility] for Surgery to be seen in 10-14 days or as scheduled [place]: [place]: [place]: May remove dressing on postop day #3, keep incision covered and dry. Ice and elevate May begin finger range of motion attempting to make full fist. Stool softener of choice when on pain medication. Prescriptions: Hydrocodone/Acetaminophen [[place] 5-325 mg Tablet] 1 tab PO Q8 PRN #15 tablet PRN Reason: Referrals: EMILY RODRIGUEZ MD [Primary Care Provider] - Respiratory Treatments at Home: Deep Breathing/Coughing Discharge Activity: No Lifting Over 10 Pounds, No Lifting/Push/Pulling Report the Following to Your Physician Immediately: Fever over 101 Degrees, Unusual Bleeding, Redness, Swelling, Warmth, Increased Soreness
[2017-11-25] MEDS ORDERED: PROMETHAZINE HCL INJ 25 MG/1 ML VIAL ONE (13:47)
[2017-11-25 14:44] VITALS: BP 110/67
== END 2017-11-25 14:55 | disposition home or self-care (01) ==
LOC: OROUT 11:38
PROVIDERS: ATTEND Orthopaedic Surgery
PROC: 01N54ZZ Release Median Nerve, Percutaneous Endoscopic Approach (ICD-10-PCS; principal; 2017-11-25 13:00)
DX: G56.02 Carpal tunnel syndrome, left upper limb (principal); Z88.0 Allergy status to penicillin; Z88.1 Allergy status to other antibiotic agents; Z87.891 Personal history of nicotine dependence
CPT/HCPCS: 29848; 81025; J2250; J3490 ×2; J1100; J1170; J2550; J2405; J2704; 1810